=== PATIENT | male | born 1945 | race African-American/Black ===

== ENCOUNTER 2017-04-14 05:57 | Observation (INO) ==
[2017-04-14] MEDS ORDERED: methylPREDNISolone SOD SUC 125 MG/2 ML VIAL IV STA (06:32)
[2017-04-14] MEDS ORDERED: diphenhydrAMINE 50 MG/1 ML VIAL IV STA (06:32)
[2017-04-14] MEDS ORDERED: ALBUTEROL/IPRATROPIUM 3 ML NEB RESP TX STA (06:32)
[2017-04-14 06:45] LABS: Basophils % 0.2 % (0.0-0.8); Eosinophils # 0.2 10*3/uL (0.0-0.87); Hematocrit 42.7 VOL% (42.0-52.0); Immature Granulocytes % 2.3 %; Immature Granulocytes Absolute 0.35 #; Lymphocytes # 3.8 10*3/uL (1.4-4.0); Lymphocytes % 25.5 % (21.2-54.2); Mean Corpuscular HGB Conc 32.8 GM/DL (32-36); Mean Corpuscular Hemoglobin 29 PG (27-34); Mean Platelet Volume 9.6 FL (9.6-12.0); Monocytes # 0.9 10*3/uL (0.11-0.8); Monocytes % 5.7 % (1.7-12.7); Neutrophils # 9.8 10*3/uL (1.4-7.4); Neutrophils % 65.3 % (38.7-73.9); Platelet Count 292 T/CUMM (130-400); Red Cell Distribution Width 15.4 % (9.3-17.3)
[2017-04-14] MEDS ORDERED: diphenhydrAMINE 50 MG/1 ML VIAL ONE (06:47)
[2017-04-14] MEDS ORDERED: methylPREDNISolone SOD SUC 125 MG/2 ML VIAL ONE (06:47)
--- NOTE | 2017-04-14 07:10 | EKG Report ---
Stationary ECG Study [facility] ER Test Date: 04/14/2017 7:08:12 AM Pat Name: ANITA GRAY Department: Room: Gender: M Procurement Buyer: : 1945 Requested by: Amilcar Burgos Order Number: [id number] Reading MD: TERRY BARBOSA Intervals [place] Rate: 64 P: 29 IA: 155 QRS: 142 QRSD: 92 T: -18 QT: 416 QTc: 426 Interpretive Statements SINUS RHYTHM INDETERMINATE AXIS PATTERN CONSISTENT WITH PULMONARY DISEASE POSSIBLE INFERIOR MYOCARDIAL INFARCTION, OF INDETERMINATE AGE Electronically Signed On 04-14-17 07:17:06 CDT by TERRY BARBOSA [email or web address]
--- NOTE | 2017-04-14 07:11 | XRay Report ---
Portable chest. Indication: Shortness of breath. Comparison: April 13, 2017. The heart is normal in size. There is uncoiling of the thoracic aorta. Better breath with taken. Previously seen small left apical pneumothorax no longer visible. There is however significant worsening in the subcutaneous emphysema, which is now bilateral, and extending into the neck. There is improved aeration of the lung bases, particularly the right lung base. Persistent pleural and parenchymal abnormality on the left, with infiltrates also seen in the right lung. Impression: 1. Interval significant increase in subcutaneous emphysema, now bilateral. 2. The previously described 7 mm pneumothorax at the left apex is not visible. 3. Diffuse infiltrates are present with pleural thickening on the left. There is improved aeration compared to the previous study. PROCEDURE INTERPRETED AT [facility] Final Report Signed by: Dr. Cathy Howard
--- NOTE | 2017-04-14 07:12 | XRay Report ---
History: Swelling back of throat. Neck tenderness Date: 04/14/2017 Study: Soft tissue neck 2 views Comparison exam: Chest x-ray 04/13/2017 There is increasing soft tissue emphysema of the supraclavicular and cervical soft tissues compared to the chest x-ray from the previous day. This includes soft tissue emphysema in the prevertebral soft tissues. The upper airway is patent. There is no abnormal edema of the epiglottis. No definite radiopaque foreign body is seen. There is moderate anterior spondylosis and mild degenerative disc narrowing at C5-C6 and C6-C7. Impression: Increased soft tissue emphysema of the supraclavicular and cervical soft tissues bilaterally compared to the chest x-ray from the previous day PROCEDURE INTERPRETED AT [facility]PARTMENT OF RADIOLOG[facility] Final Report Signed by: Dr. Violet Hope
--- NOTE | 2017-04-14 07:53 | Emergency Department Note ---
Ephraim Ponce Manpreet, am scribing for, and in the presence of, Amilcar Perkins MD 06:38. Maddie Ponce Phillip K, MD, personally performed the services described in this documentation, ascribed by Mehdi Ye in my presence, and it is both accurate and complete 753 . Arrival - Arrival Chief Complaint: Non-Specific Stated Complaint: swelling ED Nursing Triage Note: Pt to triage with c/o swelling in his face and throat. Pt states he feels like a "lump" in his throat. Pt states he was d/c yesterday for here after having "lung " surgery done by . Pt sats's was 86% but came up to 94% after 2L oxygen. Mode of Arrival: Wheelchair Limitations: No Limitations Source: Patient - History of Present Illness HPI Narrative: Pt is a 76 y/o male, with PMHx of COPD, who presents to the ED with CC of swelling to his face and throat. Pt feels like he has a "lump" in his throat. Pt felt his throat swollen after eating a meal yesterday. Pt also c/o a productive cough with a white phlegm. Pt's lung collapsed 12 days ago and had a chest tube placed. The tube was in the pt for 10 days. Pt denies any pain to his throat. Pt had his lungs inflated by Dr. Trotter yesterday. No other pains/ complaints reported to the ED. Onset (ago): hour(s) Consistency: constant Severity: moderate Severity scale (1-10): 3 Allergies/Adverse Reactions: Allergies Allergy/AdvReac Type Severity Reaction Status Date / Time No Known Allergies Allergy Unverified 04/14/17 06:13 Home Medications: Home Medications Medication Instructions Recorded Confirmed Type No Known Home Medications [No 04/04/17 04/04/17 History Known Home Medications] Review of System - Review of System 12 point system: reviewed and no additional remarkable complaints except as stated - Review of System Constitutional: Absent: chills, diaphoresis, fever Head/Ears/Nose/Throat: Present: other (Swelling to face and throat). Absent: epistaxis Respiratory: Present: respiratory distress, wheezing. Absent: cough Cardiovascular: Absent: chest pain Gastrointestinal: Absent: abdominal pain, nausea, vomiting Musculoskeletal: Absent: arm pain, back pain Neurological: Absent: headache, weakness, numbness, paresthesias Medical,Surgical,& Family Hx - Medical History Cardio: No history of: Hypertension Neurology: No history of: Seizures Endocrine: No history of: Diabetes Mellitus (IDDM), Diabetes Mellitus (NIDDM) Respiratory: History of: COPD - Surgical History Orthopedic Surgeries: Surgical HX of;: Orthopedic Surgery (left hip surgery) - Family History Family History: Reports;: Family Cancer (Mother), Family Stroke (Father) - Social History Smoking Status: Current every day smoker Frequency of Alcohol Use: None Type of Drug Use: None Exam Vital Signs: Vital Signs Temperature 98.6 F 04/14/17 06:43 Pulse Rate 63 04/14/17 07:13 Respiratory Rate 21 04/14/17 07:13 Blood Pressure 163/95 04/14/17 07:13 O2 Sat by Pulse Oximetry 100 04/14/17 07:13 - General General appearance: alert, in no apparent distress - Head Head exam: Present: atraumatic, normocephalic, normal inspection - Eye Eye exam: Present: normal appearance, PERRL, EOMI - ENT ENT exam: Present: normal oropharynx, mucous membranes moist, TM's normal bilaterally, other (Swelling of back of throat, no redness or puss) - Neck Neck exam: Present: normal inspection, full ROM, trachea midline. Absent: thyromegaly - Chest Chest inspection: Present: normal inspection, symmetric chest wall rise. Absent : tenderness - Respiratory Respiratory exam: Present: wheezes (Expiratory wheezes). Absent: normal lung sounds bilaterally, accessory muscle use, rales, respiratory distress, rhonchi - Cardiovascular Cardiovascular exam: Present: regular rate, normal rhythm, normal heart sounds. Absent: murmur, rubs, gallop - Abdominal Exam Abdominal exam: Present: soft, normal bowel sounds. Absent: distention, tenderness, guarding, rebound, rigidity - Extremities Exam Extremities exam: Present: normal inspection, full ROM. Absent: tenderness - Back Exam Back exam: Present: normal inspection, full ROM. Absent: tenderness - Neurological Exam Neurological exam: Present: alert, oriented X3, CN II-XII intact, reflexes normal - Psychiatric Psychiatric exam: Present: normal affect, normal mood - Skin Skin exam: Present: warm, dry, intact, normal color. Absent: pallor Course - Reevaluation(s) Reevaluation #1: Patient discussed with the hospitalist. Results - Labs CBC & BMP: 04/14/17 06:22 Lab Results: I have reviewed the patients labs Labs: Laboratory Tests 04/14/17 06:22 WBC 15.0 H D RBC 4.80 Hgb 14.0 Hct 42.7 MCV 89.0 MCH 29 MCHC 32.8 RDW 15.4 Plt Count 292 MPV 9.6 Neut % (Auto) 65.3 Lymph % (Auto) 25.5 [place] % (Auto) 5.7 Eos % (Auto) 1.0 Baso % (Auto) 0.2 Neut # (Auto) 9.8 H Lymph # (Auto) 3.8 [place] # (Auto) 0.9 H Eos # (Auto) 0.2 Baso # (Auto) 0.0 Immature Gran % 2.3 Nucleated RBC % 0.0 Immature Gran # 0.35 Nucleated RBCs # 0.00 Immature Plt Fraction 0.0 - EKG EKG results: interpreted by ERMD, sinus rhythm (Old inferior, nonspecific ST-T changes.) - Diagnostic Findings Procedure: Chest x-ray: report reviewed by me ("1. Interval significant increase in subcutaneous emphysema, now bilateral. 2. The previously described 7 mm pneumothorax at the left apex is not visible. 3. Diffuse infiltrates are present with pleural thickening on the left. There is improved aeration compared to the previous study."), X-ray: report reviewed by me ("Soft tisue neck X-ray: Increased soft tissue emphysema of the supraclavicular and cervical soft tissue bilaterally compared to the chest x-ray from the previous day.") Disposition Clinical Impression: Neck swelling, Subcutaneous emphysema, Pulmonary fibrosis Case discussed with: patient Disposition: Still a Patient Condition: Guarded Additional Instructions: Admit to the hospitalist.
--- NOTE | 2017-04-14 08:57 | Hospitalist History & Physical ---
<Patricia Kruse - Last Filed: 04/14/17 08:51> Assessment and Plan - Time spent with patient Time spent with patient: Greater than 30 minutes (1) Leukocytosis Status: Acute Assessment and plan: 71-year-old -[place] male with history of tobacco abuse and interstitial lung disease who was discharged yesterday after VATS procedure and chest tube removal. Patient is returned today and readmitted with bilateral increasing subcutaneous emphysema of the chest and neck. Patient does have some minimal shortness of breath. He will be admitted under observation overnight and watched for any respiratory failure or pneumothorax. Will consult Dr. Trotter for evaluation since he did perform the VATS procedure on . Dr. Young has seen and examined patient and further recommendations to follow. Current Visit: Yes (2) Neck swelling Status: Acute Current Visit: Yes (3) Subcutaneous emphysema Status: Acute Current Visit: Yes (4) Tobacco abuse Status: Acute Current Visit: No (5) Chronic lung disease Status: Chronic Current Visit: No (6) Hypertension Status: Chronic Current Visit: No Qualifiers: Hypertension type: essential hypertension Qualified Code(s): I10 - Essential (primary) hypertension History of Present Illness Chief complaint: Neck swelling History of present illness: Mr. Cortés is a 71 year old -[place] male with history of chronic interstitial lung disease and tobacco dependency presenting to the ED with neck and chest swelling and shortness of breath. Patient was admitted by the hospitalist service on 04/04/2017 with chest pain and shortness of breath. He was found to have a spontaneous pneumothorax and chest tube was placed. Dr. Young and Dr. Trotter both followed the patient during his hospital stay. His pneumothorax did not resolve so he was taken to the operating room on [address] Trotter where he did a left VATS exploration with lysis of adhesions, talc pleurodesis, and interstitial intercostal nerve blocks. Patient 's chest tubes were removed and he was discharged home without any difficulty yesterday. Patient states he was doing fine until he started having some neck swelling and chest swelling last night that worsened throughout the night. He states his throat hurts and he is having some shortness of breath. He is afebrile and his vital signs are stable. White count is elevated at 15 and it was normal on discharge yesterday. His chest x-ray shows significant increase in subcutaneous emphysema bilaterally with no pneumothorax. There is also diffuse infiltrates present with pleural thickening on the left. X-ray of the neck showing soft tissue emphysema of the supraclavicular and cervical soft tissues bilaterally. Upon exam patient has minimal conversational dyspnea but he is oxygenating well on room air. He does have subcutaneous air bilaterally that is visible and palpable on his chest wall. The left is greater than the right. He had copious amounts of serosanguineous drainage on his dressings that I did change in the ER with placement of occlusive dressing. Patient denies headache, blurry vision, dysphagia, chest pain, abdominal pain, constipation or diarrhea, or lower extremity edema. After discussion with Dr. Perkins the ED physician and Dr. Young the admitting hospitalist, it was agreed patient would be admitted for further evaluation and treatment. Home Medications Medication Instructions Recorded Confirmed Type No Known Home Medications [No 04/04/17 04/04/17 History Known Home Medications] Allergies Allergy/AdvReac Type Severity Reaction Status Date / Time No Known Allergies Allergy Unverified 04/14/17 06:13 Medical,Surgical,& Family Hx - Medical History Cardio: No history of: Hypertension Neurology: No history of: Seizures Endocrine: No history of: Diabetes Mellitus (IDDM), Diabetes Mellitus (NIDDM) Respiratory: History of: COPD - Surgical History Orthopedic Surgeries: Surgical HX of;: Orthopedic Surgery (left hip surgery) Additional Surgical History: VATS on 04/09/2017 - Family History Family History: Reports;: Family Cancer (Mother), Family Stroke (Father) - Social History Smoking Status: Current every day smoker Frequency of Alcohol Use: None Type of Drug Use: None Marital Status: Lives With:: Spouse Functional capacity: independent ambulation Review of systems: A complete 10 system review of systems was obtained and pertinent positives and negatives per HPI Exam - Constitutional Vitals: Period Temp Pulse Resp BP Sys/Kumar Pulse Ox Last 24 Hr 98.6 F-98.6 F 63-74 18-21 149-163/94-99 90-100 Exam: Constitutional System: No distress. No tremulousness. Head: Normocephalic, atraumatic. Ears, Nose and Throat System: No evidence of Otitis or Mastoiditis. No epistaxis or discharge, Eyes System: Pupils equal, round, and reactive. Extraocular muscles intact. Neck: Supple, without adenopathy, No jugular venous distention. No thyromegaly, neck mass, or prior surgery apparent. He does have some minimal subcu air bilaterally Respiratory System: Chest Rales to auscultation. Cardiovascular System: Heart with regular rate and rhythm. No murmur. GI System: Abdomen soft, nontender. Normo active bowel sounds present. Musculoskeletal System: limbs with no pedal edema. Full distal pulses. Neurological System: No discernable sensory deficit. No aphasia Psychiatric System: Conversation is rational Results - Labs CBC & BMP: 04/14/17 06:22 Lab Results: I have reviewed the past 24 hour labs - EKG EKG results: sinus rhythm - Diagnostic Findings Procedure: Chest x-ray: report reviewed by me (Interval significant increase in subcu emphysema bilaterally, no pneumothorax, diffuse infiltrates with pleural thickening on the left.), X-ray: report reviewed by me (Increased soft tissue emphysema of the supraclavicular and cervical soft tissues bilaterally.) <Brennan Young - Last Filed: 04/14/17 10:46> Assessment and Plan (1) Subcutaneous emphysema Status: Acute Assessment and plan: Impression: 1. Subcutaneous emphysema, almost certainly related to recent surgical procedure 2. Pulmonary fibrosis Plan: The patient will be readmitted to the hospital. CV surgery has been consulted for evaluation and input. I am seeing this patient in colllaboration with the advanced instructional manager. I performed the essential elements of the history and examination, and agree with the evaluation as entered, except as noted above. Current Visit: Yes Qualifiers: Encounter type: initial encounter Qualified Code(s): T79.7XXA - Traumatic subcutaneous emphysema, initial encounter History of Present Illness History of present illness: Mr. Cortés is a 71 year old male History is as described above. The patient had his chest tube removed yesterday. He did not have any evidence of air leak or recurrent pneumothorax, and was discharged home. He says that he noted some swelling in his chest later in the day as well as some dyspnea. He came back to the emergency room. He was noted to have subcutaneous emphysema in the chest extending up into the neck. Oxygenation was adequate. He also had quite a bit of serosanguineous drainage on the dressing. CV surgery has been consulted, and will see the patient along with us. Exam - Constitutional Vitals: Period Temp Pulse Resp BP Sys/Kumar Pulse Ox Last 24 Hr 98.6 F-98.6 F 62-74 18-22 148-163/94-99 90-100 Exam: Examination is as described above. He has palpable subcutaneous air. Mild rales are present in all lung mcdonough, which is his baseline examination due to his underlying pulmonary fibrosis. Results - Labs CBC & BMP: 04/14/17 06:22 04/14/17 06:22
[2017-04-14 09:00] LABS: Calcium 8.6 MG/DL (8.5-10.1); Osmolality,Calculated 284.1 MOS/KG (273-304); Potassium 4.2 MMOL/L (3.5-5.1)
[2017-04-14] MEDS ORDERED: DOCUSATE SODIUM 100 MG CAPSULE PO PRN (09:18)
[2017-04-14] MEDS ORDERED: guaiFENesin/DM ER 600-30 MG TABLET PO PRN (09:18)
[2017-04-14] MEDS ORDERED: NICOTINE 21 MG/24 HR PATCH TRANSDERM PRN (09:18)
[2017-04-14] MEDS ORDERED: MORPHINE 2 MG/1 ML SYRINGE IV PRN (09:18)
[2017-04-14] MEDS ORDERED: ACETAMINOPHEN 325 MG TABLET PO PRN (09:18)
[2017-04-14] MEDS ORDERED: diphenhydrAMINE CAP 25 MG CAPSULE PO PRN (09:18)
[2017-04-14] MEDS ORDERED: ONDANSETRON 4 MG/2 ML VIAL IV PRN (09:18)
[2017-04-14] MEDS ORDERED: SODIUM CHLORIDE 0.9% 1,000 ML IV SCH (09:30)
[2017-04-14] MEDS: ENOXAPARIN 40 MG/0.4 ML SYRINGE SUBCUT SCH (10:52)
[2017-04-14] MEDS: PANTOPRAZOLE 40 MG TABLET PO SCH (10:52)
--- NOTE | 2017-04-14 11:47 | Cardiothoracic Consult ---
Assessment and Plan - Time spent with patient Time spent with patient: Greater than 30 minutes (1) Subcutaneous emphysema Status: Acute Assessment and plan: 71-year-old male with subcutaneous emphysema, however no pneumothorax, the patient has a nonhealing wound on his left side of the chest that was a place of the initial chest tube that was placed by the ER team. This wound appears to be communicating with the pleural cavity. I recommend consulting wound care to place wound VAC sponge in this wound with suction to -25 mmHg. This will resolve the subcutaneous emphysema as well as will keep the wound clean and healing faster. Current Visit: Yes History of Present Illness - Data of Consult Patient: known to practice within the last 3 years Consult date: 04/14/17 - Consult Narrative Reason for consult: Subcutaneous emphysema History of present illness: Mr. Cortés is a 71 year old male who is status post VATS talc pleurodesis for persistent pneumothorax which at the time developed into tension pneumothorax. The patient did well. I removed his chest tube recently. The patient was discharged yesterday by the primary service. He comes back today with subcutaneous emphysema. He has no other symptoms. He is hemodynamically stable. There does not have pneumothorax. CC: Brennan Young MD - Home Medications and Allergies Home Medications: Home Medications Medication Instructions Recorded Confirmed Type No Known Home Medications [No 04/04/17 04/04/17 History Known Home Medications] Allergies/Adverse Reactions: Allergies Allergy/AdvReac Type Severity Reaction Status Date / Time No Known Allergies Allergy Unverified 04/14/17 06:13 12 point system: reviewed and no additional remarkable complaints except as stated (HPI) Medical,Surgical,& Family Hx - Medical History Cardio: No history of: Hypertension Neurology: No history of: Seizures Endocrine: No history of: Diabetes Mellitus (IDDM), Diabetes Mellitus (NIDDM) Respiratory: History of: COPD Comment Only: Respiratory Problems (pneumothorax) - Surgical History Orthopedic Surgeries: Surgical HX of;: Orthopedic Surgery (left hip surgery) - Family History Family History: Reports;: Family Cancer (Mother), Family Stroke (Father) - Social History Smoking Status: Current every day smoker Frequency of Alcohol Use: None Type of Drug Use: None Physical Examination Vital Signs Temp Pulse Resp BP Pulse Ox 98.6 F 74 18 154/94 93 L 04/14/17 06:06 04/14/17 06:06 04/14/17 06:06 04/14/17 06:06 04/14/17 06:06 General: Present: Other (To obtain his emphysema) HEENT: Present: Other (Subcutaneous emphysema) Neck: Present: Other (Subcutaneous emphysema) Cardiac: Present: Reg Rate and Rhythm Lungs: Present: Normal Exam Neuro: Present: Cranial Nerve 2-12 Intact Abdomen: Present: Soft, Active Bowel Sounds Result/EKG - Labs CBC & BMP: 04/14/17 06:22 04/14/17 06:22 Labs: Laboratory Results - last 24 hr 04/14/17 04/14/17 06:22 06:22 WBC 15.0 H D RBC 4.80 Hgb 14.0 Hct 42.7 MCV 89.0 MCH 29 MCHC 32.8 RDW 15.4 Plt Count 292 MPV 9.6 Neut % (Auto) 65.3 Lymph % (Auto) 25.5 [place] % (Auto) 5.7 Eos % (Auto) 1.0 Baso % (Auto) 0.2 Neut # (Auto) 9.8 H Lymph # (Auto) 3.8 [place] # (Auto) 0.9 H Eos # (Auto) 0.2 Baso # (Auto) 0.0 Immature Gran % 2.3 Nucleated RBC % 0.0 Immature Gran # 0.35 Nucleated RBCs # 0.00 Immature Plt Fraction 0.0 Sodium 142 Potassium 4.2 Chloride 105 Carbon Dioxide 31 Anion Gap 10.2 BUN 22 H Creatinine 0.80 GFR Calculation 126 BUN/Creatinine Ratio 27.00 H Glucose 83 Calculated Osmolality 284.1 Calcium 8.6
--- NOTE | 2017-04-14 15:14 | Discharge Summary ---
Hospital Course - Hospital Course Hospital Course: 71-year-old -[place]ym[place] male with history of tobacco abuse and interstitial lung disease. Readmitted by hospital medicine with bilateral increasing subcutaneous emphysema of the chest and the neck without pneumothorax. Patient had been discharged 1 day prior status post VATS procedure and chest tube removal by Dr. Trotter. Dr. Trotter was consulted and he found a nonhealing wound on the left side of the chest that was from the initial chest tube placement. Wound VAC was placed in good seal was obtained. Home VAC has been ordered and approved and once delivered this afternoon patient will be discharged home with home wound VAC. Patient will have home health change the VAC on Mondays and . Will make an appointment with first available physician in the wound healing center for follow-up. Complete discharge instructions were given. Care coordination, chart review, and completed discharge paperwork took approximately 32 minutes. - Time spent with patient Time with patient DS: Greater than 30 minutes Diagnosis - Discharge Diagnosis (1) Leukocytosis Status: Resolved (2) Neck swelling Status: Resolved (3) Subcutaneous emphysema Status: Resolved (4) Tobacco abuse Status: Chronic (5) Chronic lung disease Status: Chronic (6) Hypertension Status: Chronic Specialty Discharge - Follow Up or Referrals Follow up with: Myron Trotter [Physician] - (follow up with Dr Trotter in 3 weeks on May 03, 2017 @ 09:00 ) Discharge Plan - Discharge Data Disposition: Home Health Service Condition at Discharge: Stable Discharge Diet: advance to your usual diet Activity: resume usual activities as tolerated Hygiene: keep area(s) dry Driving: no restrictions Contact your physician if you experience:: fever over 101, Shortness of breath, pain uncontrolled by pain medications Wound / Dressing Care Instructions: Wound VAC to left chest wound using black foam at 75/h. When removed clean wound with mild soap and water pat dry. Change wound VAC on Mondays and . - Discharge Medications No Action No Known Home Medications [No Known Home Medications] - Follow Up or Referral Follow Up: Myron Trotter [Physician] - (follow up with Dr Trotter in 3 weeks on May 03, 2017 @ 09:00 ) wound, center [Other] (first available physician) - Forms/Instructions Exam - Constitutional Vitals: Period Temp Pulse Resp BP Sys/Kumar Pulse Ox Last 24 Hr 98.5 F-98.7 F 62-74 - 142-165/90-104 90-100 Exam: 71-year-old -[place] male, no acute distress, alert and oriented Chest with rails, subcutaneous emphysema has decreased in the chest and neck, wound VAC intact CV regular rate and rhythm Abdomen soft and nontender Extremities no edema Discharge Results Procedures and tests throughout hospitalization: Pending Orders 04/14/17 10:00 MRSA Surveillence, Inf Control Routine 04/15/17 04:00 XR chest 2V IN AM Comp Blood Count Auto Diff IN AM Labs on day of discharge: Labs from last 24 hours 04/14/17 04/14/17 06:22 06:22 WBC 15.0 H D RBC 4.80 Hgb 14.0 Hct 42.7 MCV 89.0 MCH 29 MCHC 32.8 RDW 15.4 Plt Count 292 MPV 9.6 Neut % (Auto) 65.3 Lymph % (Auto) 25.5 [place] % (Auto) 5.7 Eos % (Auto) 1.0 Baso % (Auto) 0.2 Neut # (Auto) 9.8 H Lymph # (Auto) 3.8 [place] # (Auto) 0.9 H Eos # (Auto) 0.2 Baso # (Auto) 0.0 Immature Gran % 2.3 Nucleated RBC % 0.0 Immature Gran # 0.35 Nucleated RBCs # 0.00 Immature Plt Fraction 0.0 Sodium 142 Potassium 4.2 Chloride 105 Carbon Dioxide 31 Anion Gap 10.2 BUN 22 H Creatinine 0.80 GFR Calculation 126 BUN/Creatinine Ratio 27.00 H Glucose 83 Calculated Osmolality 284.1 Calcium 8.6 DS: Provider Date of admission: 04/14/17 09:18 Primary care physician: . No PCP Attending physician on admission: Brennan Young MD Consults: 04/14/17 09:18 Consult to Physician [CONS] Routine Comment: pt of yours. subq air Consulting Provider: Myron Trotter When should Consulting Provider be notified: Now Person Notified: vandana Date Notified: 04/14/17 Time Notified: 09:46 Consult Notification Comment: notified of consult 04/14/17 10:18 Consult to Pastoral Services [CONS] Routine Comment: Pastoral Screen: Request Insurance Sales Assistant Visit Pastoral Screen Source of Request: Patient 04/14/17 11:42 Consult to Wound Care - [place] [CONS] Routine Reason for Wound Care: Wound Care Management Consult Comment: place wound vac to left upper chest, 75 mmHg continuous 04/14/17 11:52 Consult to Case Mgmt/Social Srvs [CONS] Routine Reason for Case Mgmt/Social Srvs: Equipment Consult Comment: needs wound vac for home, no known insurance 04/14/17 13:35 Consult to Case Mgmt/Social Srvs [CONS] Routine Reason for Case Mgmt/Social Srvs: Home Health Consult Comment: To manage pts Wound Vac Discharging clinician: KAL Johnson Expected date of discharge: 04/14/17
--- NOTE | 2017-04-14 15:32 | General Surgery Consult Note ---
Assessment and Plan - Time spent with patient Time spent with patient: Less than 30 minutes History of Present Illness Chief complaint: Subcutaneous air with wound VAC History of present illness: Mr. Cortés is a 71 year old male -[place] male who had undergone a CABG went home after chest tubes were pulled. Came back today with some shortness of breath and subcu air in his chest wall area. He is stable showed no evidence of a pneumothorax but they elected to go ahead and put a wound VAC over the chest tube sites in order to reduce his subcu air. He does not have a lot of subcu air at this time he is not short of breath and certainly his previous x-rays showed no pneumothorax. They were planning on letting him go home with a home VAC and follow him up in the office which we are happy to do to see how he basically basically progresses. I have a little bit of concern about going home this late in the evening with the wound VAC after coming in with this problem. Generally I would feel better if he stayed overnight and if he was stable in the morning I think it be reasonable to let him go the end. Will inform his physicians about this and let this be up to them as what they decide. Home Medications Medication Instructions Recorded Confirmed Type No Known Home Medications [No 04/04/17 04/14/17 History Known Home Medications] Allergies Allergy/AdvReac Type Severity Reaction Status Date / Time No Known Allergies Allergy Unverified 04/14/17 06:13 Medical,Surgical,& Family Hx - Medical History Cardio: No history of: Hypertension Neurology: No history of: Seizures Endocrine: No history of: Diabetes Mellitus (IDDM), Diabetes Mellitus (NIDDM) Respiratory: History of: COPD Comment Only: Respiratory Problems (pneumothorax) - Surgical History Orthopedic Surgeries: Surgical HX of;: Orthopedic Surgery (left hip surgery) - Family History Family History: Reports;: Family Cancer (Mother), Family Stroke (Father) - Social History Smoking Status: Current every day smoker Frequency of Alcohol Use: None Type of Drug Use: None 12 point system: reviewed and no additional remarkable complaints except as stated Exam - Constitutional Vitals: Period Temp Pulse Resp BP Sys/Kumar Pulse Ox Last 24 Hr 98.5 F-98.7 F 62-74 17-22 142-165/90-104 90-100 General appearance: mild distress, other (Skin subcutaneous emphysema) - Head Head exam: Present: normal inspection - ENT ENT exam: Present: normal exam - Neck Neck exam: Present: normal inspection - Respiratory Respiratory exam: Present: clear to auscultation bilaterally - Cardiovascular Cardiovascular exam: Present: RRR - GI/Abdominal GI/Abdominal exam: Present: normal bowel sounds, soft - Extremities Exam Extremities exam: Present: normal inspection - Neurological Exam Neurological exam: Present: alert, oriented X3, CN II-XII intact - Skin Skin exam: Present: normal color, warm, dry Results - Labs CBC & BMP: 04/14/17 06:22 04/14/17 06:22 Lab Results: I have reviewed the past 24 hour labs - Diagnostic Findings Procedure: Chest x-ray: report reviewed by me (Subcu air without pneumo thorax) Specialty Discharge - Follow Up or Referrals Follow up with: wound, center [Other] (first available physician) Myron Trotter [Physician] - (follow up with Dr Trotter in 3 weeks on May 03, 2017 @ 09:00 )
--- NOTE | 2017-04-14 15:57 | General Surgery Consult Note ---
History of Present Illness History of present illness: Mr. Cortés is a 71 year old male Home Medications Medication Instructions Recorded Confirmed Type No Known Home Medications [No 04/04/17 04/14/17 History Known Home Medications] Allergies Allergy/AdvReac Type Severity Reaction Status Date / Time No Known Allergies Allergy Unverified 04/14/17 06:13 Medical,Surgical,& Family Hx - Medical History Cardio: No history of: Hypertension Neurology: No history of: Seizures Endocrine: No history of: Diabetes Mellitus (IDDM), Diabetes Mellitus (NIDDM) Respiratory: History of: COPD Comment Only: Respiratory Problems (pneumothorax) - Surgical History Orthopedic Surgeries: Surgical HX of;: Orthopedic Surgery (left hip surgery) - Family History Family History: Reports;: Family Cancer (Mother), Family Stroke (Father) - Social History Smoking Status: Current every day smoker Frequency of Alcohol Use: None Type of Drug Use: None Exam - Constitutional Vitals: Period Temp Pulse Resp BP Sys/Kumar Pulse Ox Last 24 Hr 98.5 F-98.7 F 62-74 - 142-165/90-104 90-100 Results - Labs CBC & BMP: 04/14/17 06:22 04/14/17 06:22 Specialty Discharge - Follow Up or Referrals Follow up with: wound, center [Other] (first available physician) Myron Trotter [Physician] - (follow up with Dr Trotter in 3 weeks on May 03, 2017 @ 09:00 )
[2017-04-15 06:06] LABS: Basophils % 0.1 % (0.0-0.8); Eosinophils # 0.5 10*3/uL (0.0-0.87); Eosinophils % 3.5 % (0.00-10.9); Hematocrit 41.3 VOL% (42.0-52.0); Hemoglobin 13.2 GM/DL (14.0-18.0); Immature Granulocytes % 2.3 %; Immature Granulocytes Absolute 0.34 #; Lymphocytes # 3.6 10*3/uL (1.4-4.0); Lymphocytes % 23.8 % (21.2-54.2); Mean Corpuscular Hemoglobin 29 PG (27-34); Mean Corpuscular Volume 89.6 FL (87-102); Mean Platelet Volume 9.9 FL (9.6-12.0); Monocytes # 1.1 10*3/uL (0.11-0.8); Monocytes % 7.2 % (1.7-12.7); NRBC # 0.02 10*3/uL; Neutrophils # 9.4 10*3/uL (1.4-7.4); Neutrophils % 63.1 % (38.7-73.9); Platelet Count 263 T/CUMM (130-400); Red Blood Count 4.61 MC/CUMM (3.8-5.5); Red Cell Distribution Width 15.5 % (9.3-17.3); White Blood Count 14.9 T/CUMM (4-12)
[2017-04-15] MEDS: PANTOPRAZOLE 40 MG TABLET PO SCH (08:48)
--- NOTE | 2017-04-15 09:29 | General Surgery Progress Note ---
Assessment and Plan - Time spent with patient Time spent with patient: Less than 30 minutes (1) Subcutaneous emphysema after procedure Status: Acute Assessment and plan: 04/15/2017 0930 hrs. Patient is doing well sitting up complaining no shortness of breath or discomfort. Cannot really appreciate crepitance but it is a little soft in the left chest wall area. Wound VAC appears to be working with no alarms at this time. Chest x-ray looks stable at this point no final report that I see. At this point I feel little better about him going home since we have had a little time to be sure nothing was changing. We will plan to follow him up in the office on Wednesday to look at his wound VAC. Current Visit: Yes Subjective Patient reports: Present: no new complaints, afebrile, other (No shortness of breath no discomfort) Exam - Constitutional Vitals: Period Temp Pulse Resp BP Sys/Kumar Pulse Ox Last 24 Hr 97.9 F-99.0 F 62-120 17-28 133-165/70-104 92-100 General appearance: no acute distress - Head Head exam: Present: normal inspection - ENT ENT exam: Present: normal exam - Neck Neck exam: Present: normal inspection - Respiratory Respiratory exam: Present: rales - Cardiovascular Cardiovascular exam: Present: RRR - GI/Abdominal GI/Abdominal exam: Present: normal bowel sounds, soft - Extremities Exam Extremities exam: Present: normal inspection - Neurological Exam Neurological exam: Present: alert, oriented X3, CN II-XII intact - Skin Skin exam: Present: normal color, warm, dry Results - Labs CBC & BMP: 04/15/17 05:30 04/14/17 06:22 Lab Results: I have reviewed the past 24 hour labs Specialty Discharge - Follow Up or Referrals Follow up with: wound, center [Other] (first available physician) Myron Trotter [Physician] - 05/03/17 9:00 am (follow up with Dr Trotter in 3 weeks on May 03, 2017 @ 09:00 ) Selvin Manley MD [Physician] - 05/20/17 9:30 am (follow up with Dr Manley Wednesday04/19/17 @ 09:30 bring insurance card, identification, and home medications )
[2017-04-15] MEDS: ENOXAPARIN 40 MG/0.4 ML SYRINGE SUBCUT SCH (10:30)
--- NOTE | 2017-04-15 11:30 | XRay Report ---
Exam: XR chest 2V Indication: Extensive chest wall emphysema Comparison study: Prior chest radiograph 04/14/2017 and 04/12/2017 Findings: Previous left-sided chest tube is been removed. Extensive bilateral chest wall emphysematous changes are noted, which appears the anatomy. Slight lucency within the left lung apex is noted and a moderate sized pneumothorax is not excluded. Evaluation for pulmonary infiltrates is severely limited. Fibrotic changes, interstitial prominence and atelectasis within the lung bases is suspected and similar prior. Cardiac silhouette and mediastinal contours appear similar prior. Osseous structures are stable. Impression: Extensive chest wall edematous changes which appears anatomy. A pneumothorax within the left apex is suspected but not clearly identified radiographically. If there is clinical concern for recurrent pneumothorax following chest tube placement, consider CT imaging of the chest without contrast. Critical findings discussed with hospitalist Dr. Young at the workstation at approximately 11:25 AM on the day of the examination PROCEDURE INTERPRETED AT [facility] DEPARTMENT OF RADIOLOGY Final Report Signed by: Quincy Bishop
--- NOTE | 2017-04-15 13:03 | CT Report ---
History is follow-up pneumothorax and soft tissue emphysema Up to 1 cm mediastinal nodes grossly unchanged. There is mediastinal air present more pronounced than on the prior study. Heart is enlarged There is now a small, 1 x 4 cm mildly loculated pleural fluid collection posteriorly left chest with some minimal hyperdensity at the periphery. Prior left chest tube has been removed. There is a small, 3 x 5 cm mildly loculated pneumothorax in the left lung apex. This is much smaller than pneumothorax seen on the prior study. There is elongated mildly increased pleural-based density in the lateral left lung base. There is a more focal elliptical mildly hyperdense 2.5 x 5 cm pleural-based or extrapleural density anteriorly in the left upper chest which was not present on the prior study possibly hematoma Extensive soft tissue gas throughout both sides of the chest and the visualized neck is present more pronounced than on the prior study Extensive cystic changes throughout both lung mcdonough again seen with diffuse chronic reticular pulmonary opacities also again seen. There is a small amount of the loculated pleural gas measuring 1 x 2 cm in the lateral left lung base. Several other small pockets of pleural gas in the anterior lateral left chest present more superiorly left renal cyst partially visualized. The contours of pancreatic tail similar on multiple prior studies Impression: 1. Small areas of mildly loculated left pneumothorax 2. Worsening of extensive subcutaneous air both sides of the chest and neck 3. Worsening pneumomediastinum 4. Worsening pleural or extrapleural opacities in the left chest possibly with more focal extrapleural hematoma in the anterior left upper chest 5. extensive chronic pulmonary findings again seen The CT exam was performed using one or more of the following dose reduction techniques: Automated exposure control, adjustment of the mA and/or kV according to patient size, or use of iterative reconstruction technique. PROCEDURE INTERPRETED AT [facility] DEPARTMENT OF RADIOLOGY Final Report Signed by: Dr. Tete Howard
--- NOTE | 2017-04-15 15:29 | Hospitalist Progress Note ---
Assessment and Plan (1) Subcutaneous emphysema Status: Resolved Assessment and plan: Impression: 1. Subcutaneous emphysema, almost certainly related to recent surgical procedure 2. Pulmonary fibrosis Plan: Continue wound VAC. Home oxygen. Optimize COPD medications. This note was completed using [employer] voice recognition software. There may be lockstitch cup setter errors as a result. Current Visit: Yes Qualifiers: Encounter type: initial encounter Qualified Code(s): T79.7XXA - Traumatic subcutaneous emphysema, initial encounter Hospitalist: Subjective Interval history: Follow-up subcutaneous emphysema with possible pneumothorax. I reviewed the chest x-ray with radiology, and they were concerned about residual pneumothorax. The patient therefore underwent chest CT. He was found to have pneumomediastinum and what appears to be some loculated areas of pneumothorax. He also has a significant amount of subcutaneous emphysema. CV surgery has also reviewed the CT, and has suggested that the patient can go home once we have managed his hypoxia. He will need to go home with oxygen. We will begin to arrange this. He already is under the care of a senior accounts payable specialist for his pulmonary fibrosis, and will make sure that his pulmonary medications are optimized at this time. Exam - Constitutional Vitals: Period Temp Pulse Resp BP Sys/Kumar Pulse Ox Last 24 Hr 97.9 F-99.0 F 66-120 18-28 133-149/70-94 92-99 Vital signs are noted above. Heart is regular with no murmur or gallop. Lungs show bilateral rales. Subcutaneous emphysema makes pulmonary auscultation difficult. He is awake and alert Results - Labs CBC & BMP: 04/15/17 05:30 04/14/17 06:22 Lab Results: I have reviewed the past 24 hour labs Specialty Discharge - Follow Up or Referrals Follow up with: wound, center [Other] (first available physician) Myron Trotter [Physician] - 05/03/17 9:00 am (follow up with Dr Trotter in 3 weeks on May 03, 2017 @ 09:00 ) Selvin Manley MD [Physician] - 05/20/17 9:30 am (follow up with Dr Manley Wednesday04/19/17 @ 09:30 bring insurance card, identification, and home medications )
[2017-04-15] MEDS: ACETAMINOPHEN 325 MG TABLET PO PRN (20:14)
[2017-04-16] MEDS: PANTOPRAZOLE 40 MG TABLET PO SCH (08:34)
[2017-04-16] MEDS: ENOXAPARIN 40 MG/0.4 ML SYRINGE SUBCUT SCH (09:42)
--- NOTE | 2017-04-16 10:21 | Discharge Summary ---
Hospital Course - Hospital Course Hospital Course: 71-year-old -[place]ian male with history of tobacco abuse and interstitial lung disease. Readmitted by hospital medicine with bilateral increasing subcutaneous emphysema of the chest and the neck without pneumothorax. Patient had been discharged 1 day prior status post VATS procedure and chest tube removal by Dr. Trotter. Dr. Trotter was consulted and he found a nonhealing wound on the left side of the chest that was from the initial chest tube placement. Wound VAC was placed in good seal was obtained. Home VAC has been ordered and approved and once delivered this afternoon patient will be discharged home with home wound VAC. Patient will have home health change the VAC on Mondays and . Will make an appointment with first available physician in the wound healing center for follow-up. Complete discharge instructions were given. Care coordination, chart review, and completed discharge paperwork took approximately 32 minutes. The patient stayed in the hospital a couple extra days for evaluation of a possible pneumothorax. There is no further surgical intervention required. Wound VAC was placed. He was hypoxic during hospitalization, so we ordered home oxygen. This took an extra day to make arrangements for he will go home with a wound VAC and home oxygen, and follow-up as described above in the wound clinic. This note was completed using [employer] voice recognition software. There may be mental hygiene consultant errors as a result. Diagnosis - Discharge Diagnosis (1) Subcutaneous emphysema Status: Resolved Specialty Discharge - Follow Up or Referrals Follow up with: francai germain [Other] (first available physician) Myron Trotter [Physician] - 05/03/17 9:00 am (follow up with Dr Trotter in 3 weeks on May 03, 2017 @ 09:00 ) Selvin Manley MD [Physician] - 05/20/17 9:30 am (follow up with Dr Manley Wednesday04/19/17 @ 09:30 bring insurance card, identification, and home medications ) Discharge Plan - Discharge Data Disposition: Home Health Service Condition at Discharge: Stable Discharge Diet: advance to your usual diet Activity: resume usual activities as tolerated Hygiene: no restrictions Weight Bearing at Discharge: full weight bearing (when Home O2 and portable tank delivered.) - Discharge Medications Continue No Known Home Medications [No Known Home Medications] - Follow Up or Referral Follow Up: francia germain [Other] (first available physician) Myron Trotter [Physician] - 05/03/17 9:00 am (follow up with Dr Trotter in 3 weeks on May 03, 2017 @ 09:00 ) Selvin Manley MD [Physician] - 05/20/17 9:30 am (follow up with Dr Manley Wednesday04/19/17 @ 09:30 bring insurance card, identification, and home medications ) - Forms/Instructions Exam - Constitutional Vitals: Period Temp Pulse Resp BP Sys/Kumar Pulse Ox Last 24 Hr 96.9 F-99.8 F 64-80 18-22 144-163/85-106 93-100 Vital signs are noted above. Heart is regular with extremely distant tones. He has rales all over the chest, and also quite a bit of crepitance from the subcutaneous air. He is awake and alert DS: Provider Date of admission: 04/14/17 09:18 Primary care physician: . No PCP Attending physician on admission: Brennan Young MD Consults: 04/14/17 09:18 Consult to Physician [CONS] Routine Comment: pt of yours. subq air Consulting Provider: Myron Trotter When should Consulting Provider be notified: Now Person Notified: vandana Date Notified: 04/14/17 Time Notified: 09:46 Consult Notification Comment: notified of consult 04/14/17 10:18 Consult to Pastoral Services [CONS] Routine Comment: Pastoral Screen: Request Loan Interviewer Mortgage Visit Pastoral Screen Source of Request: Patient 04/14/17 11:42 Consult to Wound Care [facility] [CONS] Routine Reason for Wound Care: Wound Care Management Consult Comment: place wound vac to left upper chest, 75 mmHg continuous 04/14/17 11:52 Consult to Case Mgmt/Social Srvs [CONS] Routine Reason for Case Mgmt/Social Srvs: Equipment Consult Comment: needs wound vac for home, no known insurance 04/14/17 13:35 Consult to Case Mgmt/Social Srvs [CONS] Routine Reason for Case Mgmt/Social Srvs: Home Health Consult Comment: To manage pts Wound Vac 04/14/17 15:13 Consult to Physician [CONS] Routine Comment: wound center Consulting Provider: Selvin Manley Person Notified: yeni green Date Notified: 04/14/17 Time Notified: 13:33 04/16/17 08:32 Consult to Case Mgmt/Social Srvs [CONS] Routine Reason for Case Mgmt/Social Srvs: Equipment Consult Comment: Set up w/Home O2 @ D/C f/low O2 Sats on RA Discharging clinician: Brennan Young MD Expected date of discharge: 04/16/17 (Once home O2 and portable tank delivered)
[2017-04-16 11:43] VITALS: BP 172/84
[2017-04-16] MEDS: ACETAMINOPHEN 325 MG TABLET PO PRN (12:08)
== END 2017-04-16 16:10 | disposition home health service (06) ==
LOC: N.ED 05:57 → N.EDINP 05:57 → N.ICU 09:41 → N.3E 17:35
PROVIDERS: ADMIT Internal Medicine Geriatric Medicine; ATTEND Internal Medicine Geriatric Medicine

== ENCOUNTER 2017-07-16 09:53 | Inpatient (IN) ==
[2017-07-16] MEDS ORDERED: ALBUTEROL/IPRATROPIUM 3 ML NEB RESP TX STA (10:29)
[2017-07-16 10:36] LABS: Basophils # 0.1 10*3/uL (0.0-0.2); Basophils % 0.5 % (0.0-0.8); Eosinophils % 0.1 % (0.00-10.9); Hematocrit 43.5 VOL% (42.0-52.0); Hemoglobin 13.4 GM/DL (14.0-18.0); Immature Granulocytes % 0.6 %; Immature Granulocytes Absolute 0.06 #; Lymphocytes # 1.6 10*3/uL (1.4-4.0); Lymphocytes % 16.1 % (21.2-54.2); Mean Corpuscular HGB Conc 30.8 GM/DL (32-36); Mean Corpuscular Hemoglobin 26 PG (27-34); Mean Corpuscular Volume 85.3 FL (87-102); Mean Platelet Volume 9.7 FL (9.6-12.0); Monocytes # 1.3 10*3/uL (0.11-0.8); Monocytes % 13.5 % (1.7-12.7); Neutrophils # 6.8 10*3/uL (1.4-7.4); Neutrophils % 69.2 % (38.7-73.9); Platelet Count 200 T/CUMM (130-400); Red Cell Distribution Width 18.3 % (9.3-17.3); White Blood Count 9.8 T/CUMM (4-12)
[2017-07-16 10:44] LABS: INR 1.4; PT Patient Result 14.5 SECS; Partial Thromboplastin Time 32.1 SECS (0-40)
[2017-07-16] MEDS ORDERED: FUROSEMIDE 40 MG/4 ML VIAL IV STA (11:02)
[2017-07-16 11:03] LABS: Alanine Aminotransferase 17 U/L (16-61); Albumin 2.9 G/DL (3.4-5.0); Alkaline Phosphatase 104 U/L (45-117); Aspartate Amino Transferase 36 U/L (0-37); Blood Urea Nitrogen 18 MG/DL (7-18); Calcium 8.9 MG/DL (8.5-10.1); Glucose 94 MG/DL (74-106); Osmolality,Calculated 269.2 MOS/KG (273-304); Potassium 3.6 MMOL/L (3.5-5.1); Sodium 134 MMOL/L (136-145); Total Protein 7.5 G/DL (6.4-8.3)
[2017-07-16 11:08] LABS: ABG Base Excess 0.2 MMOL/L (-2.5-2.5); ABG HCO3 24.1 MMOL/L (20-26); ABG PCO2 39.1 MM HG (35-48); ABG PH 7.409 (7.35-7.45); ABG PO2 41.6 MM HG (80-95); ABG TCO2 21.8 MMOL/L (23-27); Allen Test Positive
[2017-07-16 11:12] LABS: Troponin I Only 0.062 NG/ML (0.00-0.045)
[2017-07-16] MEDS ORDERED: FUROSEMIDE 100 MG/10 ML VIAL ONE (11:53)
[2017-07-16] MEDS ORDERED: ALBUTEROL 2.5 MG/3 ML NEB RESP TX PRN (14:13)
[2017-07-16] MEDS ORDERED: ONDANSETRON 4 MG/2 ML VIAL IV PRN (14:13)
[2017-07-16] MEDS ORDERED: MORPHINE 10 MG/1 ML VIAL ONE (15:57)
[2017-07-16] MEDS ORDERED: LORazepam 2 MG/1 ML VIAL ONE (16:04)
[2017-07-16] MEDS: ACETAMINOPHEN 325 MG TABLET PO PRN (16:10)
[2017-07-16 16:30] LABS: ABG Base Excess -2.4 MMOL/L (-2.5-2.5); ABG HCO3 22.9 MMOL/L (20-26); ABG Oxygen Saturation 81.7 % (95-100); ABG PCO2 41.3 MM HG (35-48); ABG PH 7.361 (7.35-7.45); ABG PO2 45.6 MM HG (80-95); ABG TCO2 24.1 MMOL/L (23-27)
[2017-07-16] MEDS ORDERED: MORPHINE 2 MG/1 ML SYRINGE IV ONE (16:31)
[2017-07-16] MEDS ORDERED: LORazepam 2 MG/1 ML VIAL IV ONE (16:31)
[2017-07-16] MEDS: FUROSEMIDE 40 MG/4 ML VIAL IV SCH (16:32)
[2017-07-16 16:35] LABS: Barbiturates Screen,Urine Negative (Negative); Benzodiazepines Screen,Urine Negative (Negative); Cannabinoid Screen,Urine Negative (Negative); Opiate Screen,Urine Negative (Negative); Phencyclidine Screen,Urine Negative (Negative)
[2017-07-16 16:43] LABS: Apearance,Urine CLEAR (Clear); Bilirubin,Urine Negative (Negative); Blood, Urine Moderate mg/dL (Negative); Glucose,Urine (UA) Negative (Negative); Ketones,Urine Negative (Negative); Mucus,Urine Occasional /LPF (Occasional); Nitrite,Urine Negative (Negative); Protein,Urine Negative; RBC,Urine 1 /HPF (0-4); Squamous Epithelial Cell,Urine Occasional /HPF (0-10); Urine Color Yellow (Yellow); Urine Urobilinogen < 2.0 EU/DL (0.2-1.0); WBC,Urine 2 /HPF (0-6)
[2017-07-16] MEDS ORDERED: LORazepam 2 MG/1 ML VIAL IV PRN (16:47)
[2017-07-16] MEDS ORDERED: methylPREDNISolone SOD SUC 125 MG/2 ML VIAL IV SCH (17:00)
[2017-07-16 17:32] LABS: Troponin I Only 0.073 NG/ML (0.00-0.045)
[2017-07-16] MEDS: methylPREDNISolone SOD SUC 125 MG/2 ML VIAL IV SCH (17:37)
[2017-07-16] MEDS: ENOXAPARIN 40 MG/0.4 ML SYRINGE SUBCUT SCH (17:38)
[2017-07-16] MEDS: SODIUM CHLORIDE 0.9% 1,000 ML IV SCH (17:38)
[2017-07-16] MEDS: PIPERACILLIN/TAZOBACTAM 3,375 MG in SODIUM CHLORIDE 0.9% 100 ML IV SCH (17:41)
[2017-07-16 18:23] LABS: ABG Base Excess -0.7 MMOL/L (-2.5-2.5); ABG HCO3 27.7 MMOL/L (20-26); ABG Oxygen Saturation 99.1 % (95-100); ABG PCO2 63.3 MM HG (35-48); ABG PH 7.259 (7.35-7.45); ABG PO2 185.2 MM HG (80-95); ABG TCO2 29.6 MMOL/L (23-27); Allen Test Positive; Pt O2 Delivery Device BIPAP
[2017-07-16 18:33] LABS: Apearance,Urine Slightly Hazy (Clear); Bilirubin,Urine Negative (Negative); Blood, Urine Moderate mg/dL (Negative); Glucose,Urine (UA) Negative (Negative); Ketones,Urine Negative (Negative); Mucus,Urine Occasional /LPF (Occasional); Nitrite,Urine Negative (Negative); Protein,Urine Negative; RBC,Urine 1 /HPF (0-4); Squamous Epithelial Cell,Urine Occasional /HPF (0-10); Urine Color Yellow (Yellow); Urine Specific Gravity 1.034 (1.001-1.035); WBC,Urine 1 /HPF (0-6)
[2017-07-17] MEDS: GLYCOPYRROLATE INH SCH ×3 (00:18→22:18)
[2017-07-17] MEDS: PIPERACILLIN/TAZOBACTAM 3,375 MG in SODIUM CHLORIDE 0.9% 100 ML IV SCH ×3 (00:18→16:13)
[2017-07-17] MEDS: methylPREDNISolone SOD SUC 125 MG/2 ML VIAL IV SCH ×4 (00:18→17:02)
[2017-07-17] MEDS: FORMOTEROL FUM INH SCH ×3 (00:18→22:18)
[2017-07-17 00:45] LABS: Troponin I Only 0.057 NG/ML (0.00-0.045)
[2017-07-17] MEDS: ENOXAPARIN 40 MG/0.4 ML SYRINGE SUBCUT SCH ×2 (05:29→16:13)
[2017-07-17] MEDS: SODIUM CHLORIDE 0.9% 1,000 ML IV SCH ×2 (05:32→08:07)
[2017-07-17 05:44] LABS: Basophils # 0.1 10*3/uL (0.0-0.2); Basophils % 0.9 % (0.0-0.8); Eosinophils % 0.6 % (0.00-10.9); Hematocrit 41.6 VOL% (42.0-52.0); Hemoglobin 12.4 GM/DL (14.0-18.0); Immature Granulocytes % 0.9 %; Immature Granulocytes Absolute 0.05 #; Lymphocytes # 0.9 10*3/uL (1.4-4.0); Lymphocytes % 16.3 % (21.2-54.2); Mean Corpuscular HGB Conc 29.8 GM/DL (32-36); Mean Corpuscular Hemoglobin 26 PG (27-34); Mean Corpuscular Volume 86.7 FL (87-102); Mean Platelet Volume 11.2 FL (9.6-12.0); Monocytes # 0.2 10*3/uL (0.11-0.8); Monocytes % 4.4 % (1.7-12.7); Neutrophils # 4.1 10*3/uL (1.4-7.4); Neutrophils % 76.9 % (38.7-73.9); Platelet Count 154 T/CUMM (130-400); Red Cell Distribution Width 18.4 % (9.3-17.3); White Blood Count 5.3 T/CUMM (4-12)
[2017-07-17 06:19] LABS: Calcium 8.1 MG/DL (8.5-10.1); Osmolality,Calculated 283.5 MOS/KG (273-304); Potassium 4.7 MMOL/L (3.5-5.1)
[2017-07-17 08:04] LABS: Band Neutrophils 13 % (0-10); Burr Cells 2+; Lymphocytes 38 % (20-55); Platelet Estimate Normal; Segmented Neutrophils 48 % (50-85); Total Cells Counted 100
[2017-07-17] MEDS: PANTOPRAZOLE 40 MG TABLET PO SCH (08:31)
[2017-07-17] MEDS: FUROSEMIDE 40 MG/4 ML VIAL IV SCH ×2 (08:31→15:09)
[2017-07-17] MEDS: LOSARTAN 25 MG TABLET PO SCH (08:31)
[2017-07-17] MEDS ORDERED: GLUCAGON 1 MG VIAL IM PRN (11:12)
[2017-07-17] MEDS ORDERED: DEXTROSE 50% 25 GM/50 ML VIAL IV PRN (11:12)
[2017-07-17] MEDS: INSULIN REGULAR 100 UNIT/ML SUBCUT SCH ×2 (12:21→17:02)
[2017-07-17] MEDS: ACETAMINOPHEN 325 MG TABLET PO PRN (13:54)
[2017-07-18] MEDS: INSULIN REGULAR 100 UNIT/ML SUBCUT SCH ×4 (00:12→19:42)
[2017-07-18] MEDS: methylPREDNISolone SOD SUC 125 MG/2 ML VIAL IV SCH ×2 (00:13→05:50)
[2017-07-18] MEDS: PIPERACILLIN/TAZOBACTAM 3,375 MG in SODIUM CHLORIDE 0.9% 100 ML IV SCH ×3 (01:47→18:28)
[2017-07-18] MEDS: ENOXAPARIN 40 MG/0.4 ML SYRINGE SUBCUT SCH ×2 (05:50→18:28)
[2017-07-18 05:58] LABS: Basophils % 0.2 % (0.0-0.8); Hematocrit 40.3 VOL% (42.0-52.0); Hemoglobin 12.6 GM/DL (14.0-18.0); Immature Granulocytes Absolute 0.11 #; Lymphocytes # 1.2 10*3/uL (1.4-4.0); Lymphocytes % 11.5 % (21.2-54.2); Mean Corpuscular HGB Conc 31.3 GM/DL (32-36); Mean Corpuscular Hemoglobin 26 PG (27-34); Mean Corpuscular Volume 83.3 FL (87-102); Mean Platelet Volume 10.3 FL (9.6-12.0); Monocytes # 0.5 10*3/uL (0.11-0.8); Monocytes % 4.7 % (1.7-12.7); Neutrophils # 8.9 10*3/uL (1.4-7.4); Neutrophils % 82.6 % (38.7-73.9); Platelet Count 209 T/CUMM (130-400); Red Blood Count 4.84 MC/CUMM (3.8-5.5); Red Cell Distribution Width 17.6 % (9.3-17.3); White Blood Count 10.8 T/CUMM (4-12)
[2017-07-18 06:22] LABS: Calcium 8.2 MG/DL (8.5-10.1); Potassium 4.4 MMOL/L (3.5-5.1)
[2017-07-18 06:45] LABS: Band Neutrophils 12 % (0-10); Burr Cells Slight; Lymphocytes 9 % (20-55); Platelet Estimate Adequate; Segmented Neutrophils 76 % (50-85); Total Cells Counted 100
[2017-07-18] MEDS ORDERED: methylPREDNISolone SOD SUC 40 MG/1 ML VIAL IV SCH (07:30)
[2017-07-18] MEDS: FORMOTEROL FUM INH SCH ×2 (08:00→21:39)
[2017-07-18] MEDS: GLYCOPYRROLATE INH SCH ×2 (08:00→21:39)
[2017-07-18] MEDS: FUROSEMIDE 40 MG/4 ML VIAL IV SCH ×2 (08:11→09:05)
[2017-07-18] MEDS: LOSARTAN 25 MG TABLET PO SCH (08:11)
[2017-07-18] MEDS: PANTOPRAZOLE 40 MG TABLET PO SCH (08:11)
[2017-07-18] MEDS: ROSUVASTATIN 20 MG TABLET PO SCH (09:14)
[2017-07-18] MEDS: METOPROLOL TARTRATE 25 MG TABLET PO SCH ×3 (09:14→21:38)
[2017-07-18] MEDS: methylPREDNISolone SOD SUC 40 MG/1 ML VIAL IV SCH ×2 (15:13→21:35)
[2017-07-19] MEDS: INSULIN REGULAR 100 UNIT/ML SUBCUT SCH ×4 (00:54→18:00)
[2017-07-19] MEDS: PIPERACILLIN/TAZOBACTAM 3,375 MG in SODIUM CHLORIDE 0.9% 100 ML IV SCH ×3 (02:05→17:10)
[2017-07-19] MEDS: ENOXAPARIN 40 MG/0.4 ML SYRINGE SUBCUT SCH ×2 (05:37→20:49)
[2017-07-19] MEDS: methylPREDNISolone SOD SUC 40 MG/1 ML VIAL IV SCH ×3 (06:10→20:49)
[2017-07-19] MEDS: ROSUVASTATIN 20 MG TABLET PO SCH (08:48)
[2017-07-19] MEDS: PANTOPRAZOLE 40 MG TABLET PO SCH (08:48)
[2017-07-19] MEDS: CARVEDILOL 6.25 MG TABLET PO SCH ×2 (08:48→17:07)
[2017-07-19] MEDS: LOSARTAN 25 MG TABLET PO SCH (08:48)
[2017-07-19] MEDS: FUROSEMIDE 40 MG/4 ML VIAL IV SCH (08:49)
[2017-07-19] MEDS: FORMOTEROL FUM INH SCH ×2 (08:51→20:52)
[2017-07-19] MEDS: GLYCOPYRROLATE INH SCH ×2 (08:51→20:52)
[2017-07-19] MEDS: ACETAMINOPHEN 325 MG TABLET PO PRN (17:07)
[2017-07-19] MEDS: MORPHINE 2 MG/1 ML SYRINGE IV PRN (18:41)
[2017-07-20] MEDS: INSULIN REGULAR 100 UNIT/ML SUBCUT SCH ×4 (00:12→18:10)
[2017-07-20] MEDS: PIPERACILLIN/TAZOBACTAM 3,375 MG in SODIUM CHLORIDE 0.9% 100 ML IV SCH ×3 (01:40→16:16)
[2017-07-20] MEDS: methylPREDNISolone SOD SUC 40 MG/1 ML VIAL IV SCH ×3 (05:41→22:33)
[2017-07-20 06:21] LABS: Basophils # 0.1 10*3/uL (0.0-0.2); Basophils % 0.4 % (0.0-0.8); Hematocrit 43.4 VOL% (42.0-52.0); Hemoglobin 13.2 GM/DL (14.0-18.0); Immature Granulocytes % 2.3 %; Immature Granulocytes Absolute 0.31 #; Lymphocytes # 2.1 10*3/uL (1.4-4.0); Lymphocytes % 15.7 % (21.2-54.2); Mean Corpuscular HGB Conc 30.4 GM/DL (32-36); Mean Corpuscular Hemoglobin 26 PG (27-34); Mean Corpuscular Volume 84.3 FL (87-102); Mean Platelet Volume 10.9 FL (9.6-12.0); Monocytes # 0.9 10*3/uL (0.11-0.8); Monocytes % 6.9 % (1.7-12.7); NRBC # 0.06 10*3/uL; Neutrophils # 9.9 10*3/uL (1.4-7.4); Neutrophils % 74.7 % (38.7-73.9); Platelet Count 274 T/CUMM (130-400); Red Blood Count 5.15 MC/CUMM (3.8-5.5); Red Cell Distribution Width 18.6 % (9.3-17.3); White Blood Count 13.2 T/CUMM (4-12)
[2017-07-20 06:49] LABS: Calcium 8.5 MG/DL (8.5-10.1); Osmolality,Calculated 286.5 MOS/KG (273-304); Potassium 4.5 MMOL/L (3.5-5.1)
[2017-07-20] MEDS: PANTOPRAZOLE 40 MG TABLET PO SCH (08:38)
[2017-07-20] MEDS: ROSUVASTATIN 20 MG TABLET PO SCH (08:38)
[2017-07-20] MEDS: CARVEDILOL 6.25 MG TABLET PO SCH ×2 (08:38→16:16)
[2017-07-20] MEDS: LOSARTAN 25 MG TABLET PO SCH (08:38)
[2017-07-20] MEDS: FORMOTEROL FUM INH SCH ×2 (08:39→22:36)
[2017-07-20] MEDS: GLYCOPYRROLATE INH SCH ×2 (08:39→22:36)
[2017-07-20] MEDS: FUROSEMIDE 40 MG/4 ML VIAL IV SCH (08:39)
[2017-07-20] MEDS: ENOXAPARIN 40 MG/0.4 ML SYRINGE SUBCUT SCH ×2 (08:45→22:34)
[2017-07-20 13:52] LABS: Apearance,Urine CLEAR (Clear); Bilirubin,Urine Negative (Negative); Blood, Urine Small mg/dL (Negative); Glucose,Urine (UA) Negative (Negative); Ketones,Urine Negative (Negative); Nitrite,Urine Negative (Negative); Protein,Urine Negative; Urine Color Straw (Yellow); Urine Specific Gravity 1.006 (1.001-1.035); Urine Urobilinogen < 2.0 EU/DL (0.2-1.0); WBC,Urine <1 /HPF (0-6)
[2017-07-20] MEDS: MORPHINE 2 MG/1 ML SYRINGE IV PRN (22:26)
[2017-07-21] MEDS: INSULIN REGULAR 100 UNIT/ML SUBCUT SCH ×4 (00:30→17:53)
[2017-07-21 01:28] LABS: Basophils # 0.1 10*3/uL (0.0-0.2); Basophils % 0.4 % (0.0-0.8); Hemoglobin 9.2 GM/DL (14.0-18.0); Immature Granulocytes % 4.9 %; Immature Granulocytes Absolute 0.82 #; Lymphocytes % 11.7 % (21.2-54.2); Mean Corpuscular HGB Conc 30.7 GM/DL (32-36); Mean Corpuscular Hemoglobin 26 PG (27-34); Mean Platelet Volume 10.3 FL (9.6-12.0); Monocytes # 1.3 10*3/uL (0.11-0.8); Monocytes % 7.9 % (1.7-12.7); NRBC # 0.13 10*3/uL; Neutrophils # 12.7 10*3/uL (1.4-7.4); Neutrophils % 75.1 % (38.7-73.9); Platelet Count 139 T/CUMM (130-400); Red Blood Count 3.49 MC/CUMM (3.8-5.5); Red Cell Distribution Width 18.5 % (9.3-17.3); White Blood Count 16.9 T/CUMM (4-12)
[2017-07-21 01:38] LABS: INR 1.3; PT Patient Result 13.1 SECS; Partial Thromboplastin Time 27.8 SECS (0-40)
[2017-07-21] MEDS: PIPERACILLIN/TAZOBACTAM 3,375 MG in SODIUM CHLORIDE 0.9% 100 ML IV SCH ×2 (01:55→14:41)
[2017-07-21] MEDS: HYDROmorphone 2 MG/1 ML VIAL IV PRN ×2 (02:00→08:40)
[2017-07-21 02:02] LABS: Bilirubin,Total 0.8 MG/DL (0.2-1.0); Calcium 8.9 MG/DL (8.5-10.1); Osmolality,Calculated 285.5 MOS/KG (273-304); Potassium 4.7 MMOL/L (3.5-5.1); Total Protein 6.7 G/DL (6.4-8.3)
[2017-07-21 02:04] LABS: Lactic Acid 3.5 MMOL/L (0.4-2.0)
[2017-07-21 02:05] LABS: Lymphocytes 15 % (20-55); Metamyelocytes 1 %; Myelocytes 3 %; Segmented Neutrophils 78 % (50-85); Total Cells Counted 100
[2017-07-21 02:06] LABS: Anisocytosis 1+; Hypochromasia 1+; Ovalocytes 1+
[2017-07-21 02:07] LABS: Platelet Estimate Adequate
[2017-07-21 02:12] LABS: Calcium 8.5 MG/DL (8.5-10.1); Osmolality,Calculated 286.5 MOS/KG (273-304); Potassium 4.5 MMOL/L (3.5-5.1)
[2017-07-21] MEDS: methylPREDNISolone SOD SUC 40 MG/1 ML VIAL IV SCH ×2 (05:32→18:17)
[2017-07-21 06:00] LABS: Basophils # 0.1 10*3/uL (0.0-0.2); Basophils % 0.3 % (0.0-0.8); Hematocrit 30.1 VOL% (42.0-52.0); Hemoglobin 9.2 GM/DL (14.0-18.0); Immature Granulocytes % 5.8 %; Immature Granulocytes Absolute 1.35 #; Lymphocytes # 2.6 10*3/uL (1.4-4.0); Lymphocytes % 11.3 % (21.2-54.2); Mean Corpuscular HGB Conc 30.6 GM/DL (32-36); Mean Corpuscular Hemoglobin 26 PG (27-34); Mean Corpuscular Volume 83.6 FL (87-102); Mean Platelet Volume 9.8 FL (9.6-12.0); Monocytes # 1.5 10*3/uL (0.11-0.8); Monocytes % 6.5 % (1.7-12.7); NRBC # 0.13 10*3/uL; Neutrophils # 17.6 10*3/uL (1.4-7.4); Neutrophils % 76.1 % (38.7-73.9); Platelet Count 283 T/CUMM (130-400); Red Cell Distribution Width 18.4 % (9.3-17.3); White Blood Count 23.1 T/CUMM (4-12)
[2017-07-21 06:20] LABS: Hypochromasia 1+; Lymphocytes 12 % (20-55); Metamyelocytes 1 %; Microcytosis 1+; Myelocytes 2 %; Segmented Neutrophils 80 % (50-85); Total Cells Counted 100
[2017-07-21 06:21] LABS: Ovalocytes Slight; Platelet Estimate Normal
[2017-07-21] MEDS ORDERED: SODIUM CHLORIDE 0.9% 1,000 ML IV SCH (10:30)
[2017-07-21] MEDS: FUROSEMIDE 40 MG/4 ML VIAL IV SCH (10:54)
[2017-07-21] MEDS: PANTOPRAZOLE 40 MG TABLET PO SCH (10:55)
[2017-07-21] MEDS: GLYCOPYRROLATE INH SCH ×2 (10:55→21:33)
[2017-07-21] MEDS: CARVEDILOL 6.25 MG TABLET PO SCH (10:55)
[2017-07-21] MEDS: ROSUVASTATIN 20 MG TABLET PO SCH (10:55)
[2017-07-21] MEDS: LOSARTAN 25 MG TABLET PO SCH (10:55)
[2017-07-21] MEDS: FORMOTEROL FUM INH SCH ×2 (10:55→21:33)
[2017-07-21] MEDS: LEVOFLOXACIN INJ 750 MG in PREMIX 1 EACH IV SCH (11:06)
[2017-07-21] MEDS: METOCLOPRAMIDE 10 MG/2 ML VIAL IV SCH ×4 (12:24→18:22)
[2017-07-21] MEDS ORDERED: SODIUM CHLORIDE 0.9% 500 ML IV SCH (13:09)
[2017-07-21] MEDS ORDERED: SODIUM CHLORIDE 0.9% 500 ML IV ONE (13:11)
[2017-07-21 13:27] LABS: Hematocrit 27.3 VOL% (42.0-52.0); Hemoglobin 8.3 GM/DL (14.0-18.0)
[2017-07-21] MEDS: SODIUM CHLORIDE 0.9% 1,000 ML IV SCH ×2 (14:43→18:23)
[2017-07-21] MEDS: MAGNESIUM HYDROXIDE SUSP 30 ML UDCUP PO PRN (14:46)
[2017-07-21] MEDS ORDERED: HYDROmorphone 2 MG/1 ML VIAL IV PRN (16:46)
[2017-07-21 19:28] LABS: Hematocrit 25.8 VOL% (42.0-52.0); Hemoglobin 7.7 GM/DL (14.0-18.0)
[2017-07-22] MEDS: INSULIN REGULAR 100 UNIT/ML SUBCUT SCH ×4 (00:37→19:21)
[2017-07-22] MEDS: METOCLOPRAMIDE 10 MG/2 ML VIAL IV SCH ×4 (00:38→19:26)
[2017-07-22] MEDS: MAGNESIUM HYDROXIDE SUSP 30 ML UDCUP PO PRN (01:13)
[2017-07-22] MEDS: SODIUM CHLORIDE 0.9% 1,000 ML IV SCH (03:44)
[2017-07-22] MEDS ORDERED: MAGNESIUM CITRATE 300 ML BOTTLE PO ONE (03:51)
[2017-07-22 03:56] LABS: Hemoglobin 6.8 GM/DL (14.0-18.0)
[2017-07-22] MEDS: methylPREDNISolone SOD SUC 40 MG/1 ML VIAL IV SCH ×2 (05:39→21:26)
[2017-07-22] MEDS ORDERED: SODIUM CHLORIDE 0.9% 1,000 ML IV PRN ×2 (07:09→13:06)
[2017-07-22] MEDS: LOSARTAN 25 MG TABLET PO SCH (10:45)
[2017-07-22] MEDS: ROSUVASTATIN 20 MG TABLET PO SCH (13:05)
[2017-07-22] MEDS: FORMOTEROL FUM INH SCH ×2 (13:05→21:29)
[2017-07-22] MEDS: PANTOPRAZOLE 40 MG TABLET PO SCH (13:05)
[2017-07-22] MEDS: GLYCOPYRROLATE INH SCH ×2 (13:05→21:29)
[2017-07-22] MEDS: LEVOFLOXACIN INJ 750 MG in PREMIX 1 EACH IV SCH (15:57)
[2017-07-22 19:12] LABS: Hematocrit 23.5 VOL% (42.0-52.0); Hemoglobin 7.8 GM/DL (14.0-18.0)
[2017-07-23] MEDS: SODIUM CHLORIDE 0.9% 1,000 ML IV SCH ×4 (00:31→15:05)
[2017-07-23] MEDS: METOCLOPRAMIDE 10 MG/2 ML VIAL IV SCH ×4 (00:35→19:25)
[2017-07-23] MEDS: INSULIN REGULAR 100 UNIT/ML SUBCUT SCH ×4 (00:38→18:54)
[2017-07-23 04:44] LABS: Hematocrit 21.2 VOL% (42.0-52.0); Hemoglobin 6.9 GM/DL (14.0-18.0)
[2017-07-23 04:45] LABS: INR 1.2; PT Patient Result 12.6 SECS
[2017-07-23] MEDS ORDERED: SODIUM CHLORIDE 0.9% 1,000 ML IV PRN (08:42)
[2017-07-23 09:46] LABS: Hematocrit 24.2 VOL% (42.0-52.0); Hemoglobin 7.6 GM/DL (14.0-18.0)
[2017-07-23 09:47] LABS: Basophils % 0.2 % (0.0-0.8); Hematocrit 24.1 VOL% (42.0-52.0); Hemoglobin 7.5 GM/DL (14.0-18.0); Immature Granulocytes % 8.2 %; Immature Granulocytes Absolute 1.65 #; Lymphocytes # 2.2 10*3/uL (1.4-4.0); Lymphocytes % 10.8 % (21.2-54.2); Mean Corpuscular HGB Conc 31.1 GM/DL (32-36); Mean Corpuscular Hemoglobin 27 PG (27-34); Mean Platelet Volume 9.6 FL (9.6-12.0); Monocytes # 1.3 10*3/uL (0.11-0.8); Monocytes % 6.6 % (1.7-12.7); NRBC # 0.41 10*3/uL; Neutrophils % 74.2 % (38.7-73.9); Platelet Count 204 T/CUMM (130-400); Red Blood Count 2.74 MC/CUMM (3.8-5.5); Red Cell Distribution Width 18.2 % (9.3-17.3); White Blood Count 20.2 T/CUMM (4-12)
[2017-07-23 10:28] LABS: Calcium 8.1 MG/DL (8.5-10.1); Magnesium 3.6 MG/DL (1.8-2.4); Osmolality,Calculated 297.8 MOS/KG (273-304); Potassium 5.3 MMOL/L (3.5-5.1)
[2017-07-23] MEDS: ROSUVASTATIN 20 MG TABLET PO SCH (10:58)
[2017-07-23] MEDS: methylPREDNISolone SOD SUC 40 MG/1 ML VIAL IV SCH ×2 (10:58→20:56)
[2017-07-23] MEDS: PANTOPRAZOLE 40 MG TABLET PO SCH (10:58)
[2017-07-23] MEDS: FORMOTEROL FUM INH SCH ×2 (10:59→20:58)
[2017-07-23] MEDS: GLYCOPYRROLATE INH SCH ×2 (10:59→20:58)
[2017-07-23] MEDS: LEVOFLOXACIN INJ 750 MG in PREMIX 1 EACH IV SCH (11:20)
[2017-07-23 13:35] LABS: Hypochromasia 1+; Macrocytosis 1+; Polychromasia Slight
[2017-07-23] MEDS ORDERED: SODIUM CHLORIDE 0.9% 1,000 ML IV SCH (14:51)
[2017-07-23] MEDS ORDERED: SODIUM POLYSTYRENE SULFATE 15 GM/60 ML BOTTLE PO ONE (15:30)
[2017-07-23] MEDS ORDERED: FUROSEMIDE 40 MG/4 ML VIAL IV ONE (16:00)
[2017-07-24] MEDS: METOCLOPRAMIDE 10 MG/2 ML VIAL IV SCH ×4 (00:15→19:01)
[2017-07-24] MEDS: INSULIN REGULAR 100 UNIT/ML SUBCUT SCH ×4 (00:20→18:34)
[2017-07-24 00:51] LABS: Hematocrit 26.7 VOL% (42.0-52.0); Hemoglobin 8.4 GM/DL (14.0-18.0)
[2017-07-24 03:20] LABS: Basophils % 0.1 % (0.0-0.8); Hematocrit 28.4 VOL% (42.0-52.0); Immature Granulocytes % 6.9 %; Immature Granulocytes Absolute 1.05 #; Lymphocytes # 1.3 10*3/uL (1.4-4.0); Lymphocytes % 8.6 % (21.2-54.2); Mean Corpuscular HGB Conc 31.7 GM/DL (32-36); Mean Corpuscular Hemoglobin 28 PG (27-34); Mean Corpuscular Volume 87.1 FL (87-102); Mean Platelet Volume 9.8 FL (9.6-12.0); Monocytes # 0.8 10*3/uL (0.11-0.8); Monocytes % 5.3 % (1.7-12.7); NRBC # 0.27 10*3/uL; Neutrophils # 12.1 10*3/uL (1.4-7.4); Neutrophils % 79.1 % (38.7-73.9); Platelet Count 169 T/CUMM (130-400); Red Blood Count 3.26 MC/CUMM (3.8-5.5); Red Cell Distribution Width 19.4 % (9.3-17.3); White Blood Count 15.3 T/CUMM (4-12)
[2017-07-24 04:02] LABS: Lymphocytes 8 % (20-55); Myelocytes 5 %; Nucleated Red Blood Cells 1 (0-5); Segmented Neutrophils 83 % (50-85)
[2017-07-24 04:04] LABS: Calcium 8.5 MG/DL (8.5-10.1); Potassium 4.2 MMOL/L (3.5-5.1)
[2017-07-24 04:43] LABS: Hypochromasia 2+; Platelet Estimate Normal
[2017-07-24 04:44] LABS: Elliptocytes Few; Polychromasia Few; Total Cells Counted 100
[2017-07-24] MEDS: ROSUVASTATIN 20 MG TABLET PO SCH (10:15)
[2017-07-24] MEDS: PANTOPRAZOLE 40 MG TABLET PO SCH (10:15)
[2017-07-24] MEDS: GLYCOPYRROLATE INH SCH ×2 (10:15→21:20)
[2017-07-24] MEDS: methylPREDNISolone SOD SUC 40 MG/1 ML VIAL IV SCH ×2 (10:15→21:18)
[2017-07-24] MEDS: FORMOTEROL FUM INH SCH ×2 (10:15→21:20)
[2017-07-24] MEDS: LEVOFLOXACIN INJ 750 MG in PREMIX 1 EACH IV SCH (10:16)
[2017-07-25] MEDS: METOCLOPRAMIDE 10 MG/2 ML VIAL IV SCH ×4 (00:55→18:50)
[2017-07-25] MEDS: INSULIN REGULAR 100 UNIT/ML SUBCUT SCH ×4 (00:56→18:51)
[2017-07-25 05:30] LABS: Basophils % 0.1 % (0.0-0.8); Hematocrit 28.2 VOL% (42.0-52.0); Hemoglobin 8.9 GM/DL (14.0-18.0); Immature Granulocytes % 4.8 %; Lymphocytes # 1.3 10*3/uL (1.4-4.0); Lymphocytes % 10.2 % (21.2-54.2); Mean Corpuscular HGB Conc 31.6 GM/DL (32-36); Mean Corpuscular Hemoglobin 28 PG (27-34); Mean Corpuscular Volume 87.9 FL (87-102); Mean Platelet Volume 9.7 FL (9.6-12.0); Monocytes # 0.6 10*3/uL (0.11-0.8); Monocytes % 4.6 % (1.7-12.7); Neutrophils % 80.3 % (38.7-73.9); Platelet Count 164 T/CUMM (130-400); Red Blood Count 3.21 MC/CUMM (3.8-5.5); Red Cell Distribution Width 19.5 % (9.3-17.3); White Blood Count 12.5 T/CUMM (4-12)
[2017-07-25 05:35] LABS: Albumin 2.5 G/DL (3.4-5.0); Bilirubin,Total 2.5 MG/DL (0.2-1.0); Calcium 8.2 MG/DL (8.5-10.1); Magnesium 2.5 MG/DL (1.8-2.4); Phosphorous 3.2 MG/DL (2.5-4.9); Potassium 4.3 MMOL/L (3.5-5.1); Total Protein 5.4 G/DL (6.4-8.3)
[2017-07-25 06:24] LABS: Lymphocytes 7 % (20-55); Metamyelocytes 1 %; Nucleated Red Blood Cells 1 (0-5); Segmented Neutrophils 90 % (50-85); Total Cells Counted 100
[2017-07-25 06:25] LABS: Hypochromasia 2+; Platelet Estimate Normal
[2017-07-25] MEDS: LEVOFLOXACIN INJ 750 MG in PREMIX 1 EACH IV SCH (08:48)
[2017-07-25] MEDS: PANTOPRAZOLE 40 MG TABLET PO SCH (08:53)
[2017-07-25] MEDS: GLYCOPYRROLATE INH SCH ×2 (08:53→22:05)
[2017-07-25] MEDS: FORMOTEROL FUM INH SCH ×2 (08:53→22:05)
[2017-07-25] MEDS: ROSUVASTATIN 20 MG TABLET PO SCH (08:53)
[2017-07-25] MEDS: methylPREDNISolone SOD SUC 40 MG/1 ML VIAL IV SCH ×2 (08:58→22:01)
[2017-07-25] MEDS: FUROSEMIDE 40 MG TABLET PO SCH (13:40)
[2017-07-26] MEDS: INSULIN REGULAR 100 UNIT/ML SUBCUT SCH ×4 (00:33→17:17)
[2017-07-26] MEDS: METOCLOPRAMIDE 10 MG/2 ML VIAL IV SCH ×4 (00:53→17:17)
[2017-07-26 06:46] LABS: Basophils % 0.1 % (0.0-0.8); Hematocrit 28.9 VOL% (42.0-52.0); Hemoglobin 9.3 GM/DL (14.0-18.0); Immature Granulocytes % 2.9 %; Immature Granulocytes Absolute 0.51 #; Lymphocytes # 1.4 10*3/uL (1.4-4.0); Lymphocytes % 8.1 % (21.2-54.2); Mean Corpuscular HGB Conc 32.2 GM/DL (32-36); Mean Corpuscular Hemoglobin 28 PG (27-34); Mean Corpuscular Volume 88.4 FL (87-102); Mean Platelet Volume 10.1 FL (9.6-12.0); Monocytes # 0.7 10*3/uL (0.11-0.8); Monocytes % 3.9 % (1.7-12.7); NRBC # 0.08 10*3/uL; Neutrophils # 15.1 10*3/uL (1.4-7.4); Platelet Count 178 T/CUMM (130-400); Red Blood Count 3.27 MC/CUMM (3.8-5.5); Red Cell Distribution Width 19.9 % (9.3-17.3); White Blood Count 17.8 T/CUMM (4-12)
[2017-07-26 07:04] LABS: Bilirubin,Direct 0.58 MG/DL (0.0-0.20)
[2017-07-26 07:17] LABS: Hypochromasia 2+; Lymphocytes 6 % (20-55); Segmented Neutrophils 93 % (50-85); Total Cells Counted 100
[2017-07-26 07:18] LABS: Microcytosis 1+; Ovalocytes Slight; Platelet Estimate Adequate
[2017-07-26] MEDS: ROSUVASTATIN 20 MG TABLET PO SCH (10:19)
[2017-07-26] MEDS: LEVOFLOXACIN INJ 750 MG in PREMIX 1 EACH IV SCH (10:20)
[2017-07-26] MEDS: PANTOPRAZOLE 40 MG TABLET PO SCH (10:20)
[2017-07-26] MEDS: FUROSEMIDE 40 MG TABLET PO SCH (10:20)
[2017-07-26] MEDS: methylPREDNISolone SOD SUC 40 MG/1 ML VIAL IV SCH ×2 (10:20→21:20)
[2017-07-26] MEDS: FORMOTEROL FUM INH SCH ×2 (10:21→21:20)
[2017-07-26] MEDS: GLYCOPYRROLATE INH SCH ×2 (10:21→21:20)
[2017-07-26] MEDS ORDERED: ROSUVASTATIN 20 MG TABLET PO SCH (21:00)
[2017-07-26] MEDS: CARVEDILOL 12.5 MG TABLET PO SCH (21:20)
[2017-07-27] MEDS: INSULIN REGULAR 100 UNIT/ML SUBCUT SCH ×3 (01:15→16:37)
[2017-07-27] MEDS: METOCLOPRAMIDE 10 MG/2 ML VIAL IV SCH ×2 (01:24→06:27)
[2017-07-27 05:19] LABS: Basophils % 0.1 % (0.0-0.8); Hematocrit 30.4 VOL% (42.0-52.0); Hemoglobin 9.6 GM/DL (14.0-18.0); Immature Granulocytes % 2.9 %; Lymphocytes # 1.6 10*3/uL (1.4-4.0); Lymphocytes % 7.9 % (21.2-54.2); Mean Corpuscular HGB Conc 31.6 GM/DL (32-36); Mean Corpuscular Hemoglobin 28 PG (27-34); Mean Corpuscular Volume 88.9 FL (87-102); Mean Platelet Volume 10.1 FL (9.6-12.0); Monocytes % 4.8 % (1.7-12.7); NRBC # 0.08 10*3/uL; Neutrophils # 17.4 10*3/uL (1.4-7.4); Neutrophils % 84.3 % (38.7-73.9); Platelet Count 184 T/CUMM (130-400); Red Blood Count 3.42 MC/CUMM (3.8-5.5); Red Cell Distribution Width 20.3 % (9.3-17.3); White Blood Count 20.6 T/CUMM (4-12)
[2017-07-27 05:44] LABS: Giant Platelets Few; Hypochromasia 1+; Lymphocytes 8 % (20-55); Macrocytosis Slight; Ovalocytes Slight; Platelet Estimate Normal; Polychromasia Slight; Segmented Neutrophils 89 % (50-85); Total Cells Counted 100
[2017-07-27 05:52] LABS: Calcium 8.2 MG/DL (8.5-10.1); Magnesium 2.1 MG/DL (1.8-2.4); Osmolality,Calculated 282.4 MOS/KG (273-304); Potassium 4.5 MMOL/L (3.5-5.1)
[2017-07-27 05:58] LABS: Albumin 2.6 G/DL (3.4-5.0); Bilirubin,Total 3.7 MG/DL (0.2-1.0); Osmolality,Calculated 281.5 MOS/KG (273-304); Potassium 4.4 MMOL/L (3.5-5.1); Total Protein 5.2 G/DL (6.4-8.3)
[2017-07-27] MEDS: GLYCOPYRROLATE INH SCH (09:59)
[2017-07-27] MEDS: PANTOPRAZOLE 40 MG TABLET PO SCH (09:59)
[2017-07-27] MEDS: FUROSEMIDE 40 MG TABLET PO SCH (09:59)
[2017-07-27] MEDS: FORMOTEROL FUM INH SCH (09:59)
[2017-07-27] MEDS: CARVEDILOL 12.5 MG TABLET PO SCH (09:59)
[2017-07-27] MEDS: LEVOFLOXACIN INJ 750 MG in PREMIX 1 EACH IV SCH (10:11)
[2017-07-27] MEDS: methylPREDNISolone SOD SUC 40 MG/1 ML VIAL IV SCH (10:11)
[2017-07-27] MEDS ORDERED: predniSONE 20 MG TABLET PO SCH (10:30)
[2017-07-27 16:26] VITALS: BP 117/67
== END 2017-07-27 16:55 | disposition home or self-care (01) | DRG 291 ==
LOC: N.ED 09:53 → N.EDINP 12:03 → N.4E 14:14 → N.CC 16:30 → N.2E 07-18 11:03
PROVIDERS: ADMIT Internal Medicine; ATTEND Internal Medicine

== ENCOUNTER 2017-09-16 17:31 | Inpatient (IN) ==
[2017-09-16] MEDS ORDERED: FUROSEMIDE 100 MG/10 ML VIAL IV STA (17:53)
[2017-09-16] MEDS ORDERED: ALBUTEROL 2.5 MG/3 ML NEB RESP TX SCH (18:00)
[2017-09-16 18:07] LABS: ABG Base Excess 2.8 MMOL/L (-2.5-2.5); ABG HCO3 26.5 MMOL/L (20-26); ABG PCO2 37.7 MM HG (35-48); ABG PH 7.464 (7.35-7.45); ABG TCO2 27.6 MMOL/L (23-27); Allen Test Positive
[2017-09-16] MEDS ORDERED: FUROSEMIDE 20 MG/2 ML VIAL ONE (18:11)
[2017-09-16] MEDS ORDERED: FUROSEMIDE 40 MG/4 ML VIAL ONE (18:11)
[2017-09-16 18:22] LABS: Basophils % 0.1 % (0.0-0.8); Eosinophils # 0.2 10*3/uL (0.0-0.87); Eosinophils % 0.9 % (0.00-10.9); Hematocrit 46.7 VOL% (42.0-52.0); Hemoglobin 13.8 GM/DL (14.0-18.0); Immature Granulocytes % 0.9 %; Immature Granulocytes Absolute 0.17 #; Lymphocytes # 3.2 10*3/uL (1.4-4.0); Lymphocytes % 16.1 % (21.2-54.2); Mean Corpuscular HGB Conc 29.6 GM/DL (32-36); Mean Corpuscular Hemoglobin 29 PG (27-34); Mean Corpuscular Volume 97.5 FL (87-102); Mean Platelet Volume 9.6 FL (9.6-12.0); Monocytes % 9.9 % (1.7-12.7); NRBC # 0.13 10*3/uL; Neutrophils # 14.3 10*3/uL (1.4-7.4); Neutrophils % 72.1 % (38.7-73.9); Platelet Count 171 T/CUMM (130-400); Red Blood Count 4.79 MC/CUMM (3.8-5.5); Red Cell Distribution Width 22.1 % (9.3-17.3); White Blood Count 19.8 T/CUMM (4-12)
[2017-09-16 18:39] LABS: Albumin 3.1 G/DL (3.4-5.0); Osmolality,Calculated 282.3 MOS/KG (273-304); Potassium 4.1 MMOL/L (3.5-5.1); Total Protein 6.4 G/DL (6.4-8.3)
[2017-09-16] MEDS ORDERED: MEROPENEM 1,000 MG in SODIUM CHLORIDE 0.9% 100 ML IV STA (18:52)
[2017-09-16] MEDS ORDERED: MEROPENEM 1,000 MG VIAL IV ONE (20:00)
[2017-09-16 20:03] LABS: Apearance,Urine CLOUDY (Clear); Bacteria,Urine Occasional /HPF (Few); Bilirubin,Urine Negative (Negative); Blood, Urine Large mg/dL (Negative); Glucose,Urine (UA) Negative (Negative); Hyaline Casts,Urine 5 /LPF (0-3); Ketones,Urine Negative (Negative); Mucus,Urine Occasional /LPF (Occasional); Nitrite,Urine Negative (Negative); Protein,Urine 30 MG/DL; RBC,Urine 1 /HPF (0-4); Squamous Epithelial Cell,Urine Occasional /HPF (0-10); Urine Color Yellow (Yellow); Urine Specific Gravity 1.008 (1.001-1.035); Urine Urobilinogen < 2.0 EU/DL (0.2-1.0); WBC,Urine 2 /HPF (0-6)
[2017-09-16] MEDS ORDERED: MORPHINE 2 MG/1 ML SYRINGE IV PRN (21:41)
[2017-09-16] MEDS ORDERED: ONDANSETRON 4 MG/2 ML VIAL IV PRN (21:41)
[2017-09-16] MEDS ORDERED: ALBUTEROL/IPRATROPIUM 3 ML NEB RESP TX PRN (21:41)
[2017-09-16 22:20] LABS: Lactic Acid 1.1 MMOL/L (0.4-2.0)
[2017-09-16 22:22] LABS: Cholesterol 132 MG/DL (50-200); HDL Cholesterol 68 MG/DL (40-60); Risk Ratio 1.94; Triglycerides 71 MG/DL (2-150); VLDL CHOLESTEROL 14.2 MG/DL
[2017-09-16 22:24] LABS: Troponin I Only 0.284 NG/ML (0.00-0.045)
[2017-09-16] MEDS ORDERED: DOCUSATE SODIUM 100 MG CAPSULE ONE (23:15)
[2017-09-16] MEDS ORDERED: methylPREDNISolone SOD SUC 40 MG/1 ML VIAL ONE (23:15)
[2017-09-16] MEDS: DOCUSATE SODIUM 100 MG CAPSULE PO SCH (23:19)
[2017-09-16] MEDS: methylPREDNISolone SOD SUC 40 MG/1 ML VIAL IV SCH (23:20)
[2017-09-16] MEDS: VANCOMYCIN INJ 1,250 MG in SODIUM CHLORIDE 0.9% 250 ML IV SCH (23:22)
[2017-09-17] MEDS ORDERED: SODIUM CHLORIDE 0.9% 100 ML IV ONE (00:45)
[2017-09-17] MEDS ORDERED: PIPERACILLIN/TAZOBACTAM 3,375 MG VIAL IV ONE ×2 (00:45→08:21)
[2017-09-17] MEDS: PIPERACILLIN/TAZOBACTAM 3,375 MG in SODIUM CHLORIDE 0.9% 100 ML IV SCH ×2 (00:47→08:34)
[2017-09-17 01:43] LABS: Allen Test Positive; Pt O2 Delivery Device BIPAP
[2017-09-17 01:44] LABS: ABG Base Excess 7.4 MMOL/L (-2.5-2.5); ABG HCO3 31.1 MMOL/L (20-26); ABG Oxygen Saturation 93.8 % (95-100); ABG PCO2 47.7 MM HG (35-48); ABG PH 7.446 (7.35-7.45); ABG PO2 73.5 MM HG (80-95); ABG TCO2 28.4 MMOL/L (23-27)
[2017-09-17] MEDS ORDERED: hydrALAZINE 20 MG/1 ML VIAL IV PRN (02:35)
[2017-09-17] MEDS ORDERED: hydrALAZINE 20 MG/1 ML VIAL ONE (02:53)
[2017-09-17] MEDS: ALBUTEROL/IPRATROPIUM 3 ML NEB RESP TX SCH ×4 (03:21→20:02)
[2017-09-17] MEDS ORDERED: methylPREDNISolone SOD SUC 40 MG/1 ML VIAL ONE ×2 (06:03→14:58)
[2017-09-17] MEDS: methylPREDNISolone SOD SUC 40 MG/1 ML VIAL IV SCH ×3 (06:07→21:49)
[2017-09-17] MEDS ORDERED: FUROSEMIDE 40 MG/4 ML VIAL ONE (08:21)
[2017-09-17 08:33] LABS: Troponin I Only 0.122 NG/ML (0.00-0.045)
[2017-09-17] MEDS: FUROSEMIDE 40 MG/4 ML VIAL IV SCH ×2 (08:33→16:20)
[2017-09-17 08:43] LABS: Calcium 8.6 MG/DL (8.5-10.1); Osmolality,Calculated 285.1 MOS/KG (273-304); Potassium 4.1 MMOL/L (3.5-5.1)
[2017-09-17 08:59] LABS: Basophils % 0.1 % (0.0-0.8); Eosinophils % 0.1 % (0.00-10.9); Hematocrit 45.3 VOL% (42.0-52.0); Immature Granulocytes % 0.6 %; Immature Granulocytes Absolute 0.07 #; Lymphocytes # 0.7 10*3/uL (1.4-4.0); Lymphocytes % 5.5 % (21.2-54.2); Mean Corpuscular HGB Conc 30.2 GM/DL (32-36); Mean Corpuscular Hemoglobin 29 PG (27-34); Monocytes # 0.1 10*3/uL (0.11-0.8); Monocytes % 1.2 % (1.7-12.7); Neutrophils # 11.2 10*3/uL (1.4-7.4); Neutrophils % 92.5 % (38.7-73.9); Platelet Count 128 T/CUMM (130-400); Red Blood Count 4.67 MC/CUMM (3.8-5.5); Red Cell Distribution Width 21.8 % (9.3-17.3); White Blood Count 12.1 T/CUMM (4-12)
[2017-09-17 09:00] LABS: Hemoglobin 13.7 GM/DL (14.0-18.0)
[2017-09-17 09:10] LABS: Giant Platelets Few; Hypochromasia 1+; Lymphocytes 5 % (20-55); Ovalocytes Slight; Platelet Estimate Normal; Segmented Neutrophils 93 % (50-85); Total Cells Counted 100
[2017-09-17] MEDS ORDERED: DOCUSATE SODIUM 100 MG CAPSULE ONE (09:17)
[2017-09-17] MEDS ORDERED: PANTOPRAZOLE 40 MG TABLET PO ONE (09:17)
[2017-09-17] MEDS: PANTOPRAZOLE 40 MG TABLET PO SCH (09:19)
[2017-09-17] MEDS: DOCUSATE SODIUM 100 MG CAPSULE PO SCH ×2 (09:20→21:50)
[2017-09-17] MEDS ORDERED: METOPROLOL TARTRATE 25 MG TABLET PO SCH (10:00)
[2017-09-17] MEDS ORDERED: ASPIRIN EC 325 MG TABLET PO ONE (10:16)
[2017-09-17] MEDS ORDERED: METOPROLOL TARTRATE 25 MG TABLET ONE (10:16)
[2017-09-17] MEDS ORDERED: ASPIRIN CHEW 81 MG TABLET PO ONE (10:24)
[2017-09-17] MEDS: VANCOMYCIN INJ 1,250 MG in SODIUM CHLORIDE 0.9% 250 ML IV SCH (10:48)
[2017-09-17] MEDS: ASPIRIN EC 81 MG TABLET PO SCH (10:52)
[2017-09-17] MEDS: ISOSORBIDE MONONITRATE 30 MG TABLET PO SCH (12:11)
[2017-09-17] MEDS ORDERED: ROSUVASTATIN 20 MG TABLET PO SCH (21:00)
[2017-09-17] MEDS: CARVEDILOL 12.5 MG TABLET PO SCH (21:50)
[2017-09-18] MEDS: ALBUTEROL/IPRATROPIUM 3 ML NEB RESP TX SCH ×3 (01:39→13:40)
[2017-09-18] MEDS: methylPREDNISolone SOD SUC 40 MG/1 ML VIAL IV SCH ×2 (06:28→14:16)
[2017-09-18 08:26] LABS: Hematocrit 41.4 VOL% (42.0-52.0); Hemoglobin 12.9 GM/DL (14.0-18.0); Immature Granulocytes % 0.6 %; Immature Granulocytes Absolute 0.07 #; Lymphocytes # 0.6 10*3/uL (1.4-4.0); Lymphocytes % 5.3 % (21.2-54.2); Mean Corpuscular HGB Conc 31.2 GM/DL (32-36); Mean Corpuscular Hemoglobin 30 PG (27-34); Mean Corpuscular Volume 94.5 FL (87-102); Mean Platelet Volume 10.6 FL (9.6-12.0); Monocytes # 0.9 10*3/uL (0.11-0.8); Monocytes % 7.7 % (1.7-12.7); Neutrophils # 9.7 10*3/uL (1.4-7.4); Neutrophils % 86.4 % (38.7-73.9); Platelet Count 140 T/CUMM (130-400); Red Blood Count 4.38 MC/CUMM (3.8-5.5); White Blood Count 11.2 T/CUMM (4-12)
[2017-09-18 08:27] LABS: Calcium 8.7 MG/DL (8.5-10.1); Osmolality,Calculated 282.4 MOS/KG (273-304)
[2017-09-18] MEDS ORDERED: LOSARTAN 25 MG TABLET PO SCH (09:00)
[2017-09-18] MEDS: ISOSORBIDE MONONITRATE 30 MG TABLET PO SCH (09:42)
[2017-09-18] MEDS: ASPIRIN EC 81 MG TABLET PO SCH (09:42)
[2017-09-18] MEDS: PANTOPRAZOLE 40 MG TABLET PO SCH (09:42)
[2017-09-18] MEDS: CARVEDILOL 12.5 MG TABLET PO SCH (09:42)
[2017-09-18] MEDS: DOCUSATE SODIUM 100 MG CAPSULE PO SCH (09:42)
[2017-09-18] MEDS: FUROSEMIDE 40 MG/4 ML VIAL IV SCH (09:43)
[2017-09-18 12:27] VITALS: BP 132/77
== END 2017-09-18 15:33 | disposition home or self-care (01) | DRG 291 ==
LOC: N.ED 17:31 → N.EDINP 19:52 → SUATTDRO 19:52 → N.TELES 09-17 15:15
PROVIDERS: ADMIT Hospitalist; ATTEND Family Medicine

== ENCOUNTER 2018-05-15 13:18 | Inpatient (IN) ==
[2018-05-15 13:42] LABS: Basophils % 0.1 % (0.0-0.8); Eosinophils # 0.2 10*3/uL (0.0-0.87); Eosinophils % 2.5 % (0.00-10.9); Hemoglobin 13.7 GM/DL (14.0-18.0); Immature Granulocytes % 0.4 %; Immature Granulocytes Absolute 0.03 #; Lymphocytes % 13.5 % (21.2-54.2); Mean Corpuscular HGB Conc 29.8 GM/DL (32-36); Mean Corpuscular Hemoglobin 27 PG (27-34); Mean Corpuscular Volume 89.1 FL (87-102); Mean Platelet Volume 10.6 FL (9.6-12.0); Monocytes % 13.7 % (1.7-12.7); Neutrophils # 4.9 10*3/uL (1.4-7.4); Neutrophils % 69.8 % (38.7-73.9); Platelet Count 127 T/CUMM (130-400); Red Blood Count 5.16 MC/CUMM (3.8-5.5); Red Cell Distribution Width 18.6 % (9.3-17.3); White Blood Count 7.1 T/CUMM (4-12)
[2018-05-15 13:51] LABS: INR 1.1; PT Patient Result 11.4 SECS
[2018-05-15 14:10] LABS: Albumin 2.9 G/DL (3.4-5.0); Bilirubin,Total 2.1 MG/DL (0.2-1.0); Calcium 8.5 MG/DL (8.5-10.1); Osmolality,Calculated 283.1 MOS/KG (273-304); Total Protein 6.3 G/DL (6.4-8.3)
[2018-05-15] MEDS ORDERED: SODIUM CHLORIDE 0.9% 250 ML IV STA (15:19)
[2018-05-15] MEDS ORDERED: ALBUTEROL 2.5 MG/3 ML NEB RESP TX PRN (17:07)
[2018-05-15] MEDS ORDERED: ONDANSETRON 4 MG/2 ML VIAL IV PRN (17:07)
[2018-05-15] MEDS ORDERED: ACETAMINOPHEN 325 MG TABLET PO PRN (17:07)
[2018-05-15 18:54] LABS: Apearance,Urine CLOUDY (Clear); Bacteria,Urine Few /HPF (Few); Bilirubin,Urine Negative (Negative); Blood, Urine Negative (Negative); Glucose,Urine (UA) Negative (Negative); Ketones,Urine 5 mg/dL (Negative); Mucus,Urine Moderate /LPF (Occasional); Nitrite,Urine Negative (Negative); Protein,Urine >=500 MG/DL; RBC,Urine 3 /HPF (0-4); Squamous Epithelial Cell,Urine Occasional /HPF (0-10); Urine Color Amber (Yellow); WBC,Urine 57 /HPF (0-6)
[2018-05-15] MEDS ORDERED: FUROSEMIDE 20 MG TABLET PO PRN (19:15)
[2018-05-15] MEDS: ROSUVASTATIN 20 MG TABLET PO SCH (20:36)
[2018-05-15] MEDS: SACUBITRIL/VALSARTAN 49-51 MG TABLET PO SCH (20:36)
[2018-05-15] MEDS: ENOXAPARIN 40 MG/0.4 ML SYRINGE SUBCUT SCH (20:36)
[2018-05-15] MEDS ORDERED: CARVEDILOL 25 MG TABLET PO SCH (21:00)
[2018-05-16 00:22] LABS: ABG Base Excess 3.8 MMOL/L (-2.5-2.5); ABG HCO3 27.5 MMOL/L (20-26); ABG Oxygen Saturation 68.3 % (95-100); ABG PCO2 38.7 MM HG (35-48); ABG TCO2 28.7 MMOL/L (23-27); Allen Test Positive; Pt O2 Delivery Device Other
[2018-05-16 00:23] LABS: ABG PO2 40.1 MM HG (80-95)
[2018-05-16 03:46] LABS: Albumin 2.6 G/DL (3.4-5.0); Bilirubin,Total 1.9 MG/DL (0.2-1.0); Calcium 8.6 MG/DL (8.5-10.1); Potassium 3.8 MMOL/L (3.5-5.1); Total Protein 5.8 G/DL (6.4-8.3)
[2018-05-16 03:53] LABS: Basophils % 0.3 % (0.0-0.8); Eosinophils # 0.2 10*3/uL (0.0-0.87); Eosinophils % 3.1 % (0.00-10.9); Hematocrit 43.5 VOL% (42.0-52.0); Immature Granulocytes % 0.4 %; Immature Granulocytes Absolute 0.03 #; Lymphocytes # 1.2 10*3/uL (1.4-4.0); Lymphocytes % 16.5 % (21.2-54.2); Mean Corpuscular HGB Conc 29.9 GM/DL (32-36); Mean Corpuscular Hemoglobin 27 PG (27-34); Mean Corpuscular Volume 90.6 FL (87-102); Mean Platelet Volume 10.2 FL (9.6-12.0); Monocytes % 13.7 % (1.7-12.7); Neutrophils # 4.7 10*3/uL (1.4-7.4); Platelet Count 121 T/CUMM (130-400); White Blood Count 7.2 T/CUMM (4-12)
[2018-05-16] MEDS: SACUBITRIL/VALSARTAN 49-51 MG TABLET PO SCH ×2 (08:28→20:00)
[2018-05-16] MEDS: PANTOPRAZOLE 40 MG TABLET PO SCH (08:29)
[2018-05-16] MEDS: ASPIRIN EC 81 MG TABLET PO SCH (08:29)
[2018-05-16] MEDS: DIGOXIN 0.25 MG TABLET PO SCH (08:29)
[2018-05-16] MEDS: CARVEDILOL 12.5 MG TABLET PO SCH ×3 (08:32→20:00)
[2018-05-16] MEDS: LEVOFLOXACIN INJ 500 MG in PREMIX 1 EACH IV SCH (16:25)
[2018-05-16] MEDS: methylPREDNISolone SOD SUC 40 MG/1 ML VIAL IV SCH (16:26)
[2018-05-16] MEDS: ROSUVASTATIN 20 MG TABLET PO SCH (20:00)
[2018-05-16] MEDS: ENOXAPARIN 40 MG/0.4 ML SYRINGE SUBCUT SCH (20:00)
[2018-05-17 04:14] LABS: Eosinophils % 0.2 % (0.00-10.9); Hemoglobin 13.2 GM/DL (14.0-18.0); Immature Granulocytes % 0.2 %; Immature Granulocytes Absolute 0.01 #; Lymphocytes # 0.7 10*3/uL (1.4-4.0); Lymphocytes % 17.4 % (21.2-54.2); Mean Corpuscular HGB Conc 29.5 GM/DL (32-36); Mean Corpuscular Hemoglobin 27 PG (27-34); Mean Corpuscular Volume 89.8 FL (87-102); Mean Platelet Volume 9.9 FL (9.6-12.0); Monocytes # 0.1 10*3/uL (0.11-0.8); Monocytes % 1.9 % (1.7-12.7); Neutrophils # 3.4 10*3/uL (1.4-7.4); Neutrophils % 80.3 % (38.7-73.9); Platelet Count 135 T/CUMM (130-400); Red Blood Count 4.98 MC/CUMM (3.8-5.5); Red Cell Distribution Width 17.9 % (9.3-17.3); White Blood Count 4.3 T/CUMM (4-12)
[2018-05-17] MEDS: methylPREDNISolone SOD SUC 40 MG/1 ML VIAL IV SCH ×2 (04:15→17:21)
[2018-05-17 04:23] LABS: Hematocrit 44.7 VOL% (42.0-52.0)
[2018-05-17 04:37] LABS: Calcium 8.3 MG/DL (8.5-10.1); Osmolality,Calculated 284.1 MOS/KG (273-304); Potassium 4.9 MMOL/L (3.5-5.1)
[2018-05-17] MEDS: PANTOPRAZOLE 40 MG TABLET PO SCH (09:08)
[2018-05-17] MEDS: SACUBITRIL/VALSARTAN 49-51 MG TABLET PO SCH ×2 (09:08→20:06)
[2018-05-17] MEDS: CARVEDILOL 12.5 MG TABLET PO SCH (09:09)
[2018-05-17] MEDS: ASPIRIN EC 81 MG TABLET PO SCH (09:09)
[2018-05-17] MEDS: DIGOXIN 0.25 MG TABLET PO SCH (13:43)
[2018-05-17] MEDS: CARVEDILOL 6.25 MG TABLET PO SCH (15:19)
[2018-05-17] MEDS: LEVOFLOXACIN INJ 500 MG in PREMIX 1 EACH IV SCH (17:21)
[2018-05-17] MEDS: ROSUVASTATIN 20 MG TABLET PO SCH (20:06)
[2018-05-17] MEDS: ENOXAPARIN 40 MG/0.4 ML SYRINGE SUBCUT SCH (20:06)
[2018-05-18] MEDS: methylPREDNISolone SOD SUC 40 MG/1 ML VIAL IV SCH ×2 (03:54→17:15)
[2018-05-18 04:46] LABS: Calcium 8.6 MG/DL (8.5-10.1); Osmolality,Calculated 285.1 MOS/KG (273-304); Potassium 4.6 MMOL/L (3.5-5.1)
[2018-05-18] MEDS: DIGOXIN 0.25 MG TABLET PO SCH (09:09)
[2018-05-18] MEDS: SACUBITRIL/VALSARTAN 49-51 MG TABLET PO SCH ×2 (09:10→21:01)
[2018-05-18] MEDS: PANTOPRAZOLE 40 MG TABLET PO SCH (09:10)
[2018-05-18] MEDS: ASPIRIN EC 81 MG TABLET PO SCH (09:10)
[2018-05-18] MEDS: LEVOFLOXACIN INJ 500 MG in PREMIX 1 EACH IV SCH (17:00)
[2018-05-18] MEDS: ENOXAPARIN 40 MG/0.4 ML SYRINGE SUBCUT SCH (21:01)
[2018-05-18] MEDS: ROSUVASTATIN 20 MG TABLET PO SCH (21:01)
[2018-05-19 04:03] LABS: Basophils % 0.1 % (0.0-0.8); Hematocrit 41.5 VOL% (42.0-52.0); Hemoglobin 12.7 GM/DL (14.0-18.0); Immature Granulocytes % 0.4 %; Immature Granulocytes Absolute 0.05 #; Lymphocytes # 0.9 10*3/uL (1.4-4.0); Lymphocytes % 7.7 % (21.2-54.2); Mean Corpuscular HGB Conc 30.6 GM/DL (32-36); Mean Corpuscular Hemoglobin 27 PG (27-34); Mean Corpuscular Volume 87.7 FL (87-102); Mean Platelet Volume 9.7 FL (9.6-12.0); Monocytes # 0.6 10*3/uL (0.11-0.8); Monocytes % 5.1 % (1.7-12.7); Neutrophils # 10.3 10*3/uL (1.4-7.4); Neutrophils % 86.7 % (38.7-73.9); Platelet Count 178 T/CUMM (130-400); Red Blood Count 4.73 MC/CUMM (3.8-5.5); Red Cell Distribution Width 17.5 % (9.3-17.3); White Blood Count 11.9 T/CUMM (4-12)
[2018-05-19 04:28] LABS: Calcium 8.2 MG/DL (8.5-10.1); Osmolality,Calculated 284.3 MOS/KG (273-304); Potassium 4.8 MMOL/L (3.5-5.1)
[2018-05-19] MEDS: methylPREDNISolone SOD SUC 40 MG/1 ML VIAL IV SCH ×2 (06:16→17:40)
[2018-05-19] MEDS ORDERED: MIDAZOLAM 2 MG/2 ML VIAL ONE (09:25)
[2018-05-19] MEDS ORDERED: methylPREDNISolone SOD SUC 125 MG/2 ML VIAL ONE (09:25)
[2018-05-19] MEDS ORDERED: PROPOFOL 200 MG/20 ML VIAL IV ONE (09:25)
[2018-05-19] MEDS ORDERED: ETOMIDATE 40 MG/20 ML VIAL IV ONE (09:26)
[2018-05-19] MEDS ORDERED: ALBUTEROL INHALER 8 GM INH ONE (09:26)
[2018-05-19] MEDS ORDERED: ceFAZolin 1,000 MG VIAL IRRIG ONE (09:30)
[2018-05-19] MEDS ORDERED: FAMOTIDINE 20 MG/2 ML VIAL IV ONE (10:03)
[2018-05-19] MEDS ORDERED: HEPARIN/NACL 0.9% 2 UNITS/ML 1,000 ML IV ONE (10:06)
[2018-05-19] MEDS ORDERED: LIDOCAINE 1% 20 ML VIAL ONE (10:06)
[2018-05-19] MEDS ORDERED: HEPARIN/NACL 0.9% 2 UNITS/ML 500 ML IV ONE (10:21)
[2018-05-19] MEDS: SACUBITRIL/VALSARTAN 49-51 MG TABLET PO SCH ×2 (12:23→21:53)
[2018-05-19] MEDS: PANTOPRAZOLE 40 MG TABLET PO SCH (12:23)
[2018-05-19] MEDS: ASPIRIN EC 81 MG TABLET PO SCH (12:23)
[2018-05-19] MEDS: DIGOXIN 0.25 MG TABLET PO SCH (12:23)
[2018-05-19] MEDS ORDERED: fentaNYL 100 MCG/2 ML VIAL ONE (14:29)
[2018-05-19] MEDS ORDERED: KETAMINE 500 MG/10 ML VIAL ONE (14:54)
[2018-05-19] MEDS: LEVOFLOXACIN INJ 500 MG in PREMIX 1 EACH IV SCH (16:57)
[2018-05-19] MEDS: ROSUVASTATIN 20 MG TABLET PO SCH (21:54)
[2018-05-19] MEDS: ENOXAPARIN 40 MG/0.4 ML SYRINGE SUBCUT SCH (22:11)
[2018-05-20] MEDS: methylPREDNISolone SOD SUC 40 MG/1 ML VIAL IV SCH (04:35)
[2018-05-20 04:47] LABS: Basophils % 0.1 % (0.0-0.8); Hematocrit 40.1 VOL% (42.0-52.0); Hemoglobin 12.3 GM/DL (14.0-18.0); Immature Granulocytes % 0.7 %; Immature Granulocytes Absolute 0.08 #; Lymphocytes # 0.9 10*3/uL (1.4-4.0); Lymphocytes % 8.2 % (21.2-54.2); Mean Corpuscular HGB Conc 30.7 GM/DL (32-36); Mean Corpuscular Hemoglobin 27 PG (27-34); Mean Corpuscular Volume 87.6 FL (87-102); Mean Platelet Volume 10.1 FL (9.6-12.0); Monocytes # 0.7 10*3/uL (0.11-0.8); Monocytes % 5.9 % (1.7-12.7); Neutrophils # 9.7 10*3/uL (1.4-7.4); Neutrophils % 85.1 % (38.7-73.9); Platelet Count 174 T/CUMM (130-400); Red Blood Count 4.58 MC/CUMM (3.8-5.5); Red Cell Distribution Width 17.7 % (9.3-17.3); White Blood Count 11.4 T/CUMM (4-12)
[2018-05-20 04:50] LABS: Calcium 8.1 MG/DL (8.5-10.1); Osmolality,Calculated 282.3 MOS/KG (273-304); Potassium 4.5 MMOL/L (3.5-5.1)
[2018-05-20] MEDS ORDERED: predniSONE 20 MG TABLET PO SCH (09:00)
[2018-05-20] MEDS: ASPIRIN EC 81 MG TABLET PO SCH (09:52)
[2018-05-20] MEDS: SACUBITRIL/VALSARTAN 49-51 MG TABLET PO SCH (09:52)
[2018-05-20] MEDS: PANTOPRAZOLE 40 MG TABLET PO SCH (09:53)
[2018-05-20] MEDS: DIGOXIN 0.25 MG TABLET PO SCH (09:53)
[2018-05-20] MEDS: CARVEDILOL 6.25 MG TABLET PO SCH (09:53)
[2018-05-20 12:08] VITALS: BP 122/80
== END 2018-05-20 16:47 | disposition home or self-care (01) | DRG 228 ==
LOC: N.ED 13:18 → N.EDINP 17:07 → SUATTDRO 17:07 → N.CC 18:18 → N.TELEN 05-19 17:29
PROVIDERS: ADMIT Internal Medicine; ATTEND Internal Medicine
PROC: CLMICRA (2018-05-19 09:15)

== ENCOUNTER 2018-06-01 14:40 | Observation (INO) ==
[2018-06-01 15:30] LABS: Basophils # 0.1 10*3/uL (0.0-0.2); Basophils % 0.4 % (0.0-0.8); Eosinophils # 0.3 10*3/uL (0.0-0.87); Eosinophils % 2.5 % (0.00-10.9); Hematocrit 46.1 VOL% (42.0-52.0); Hemoglobin 13.5 GM/DL (14.0-18.0); Immature Granulocytes % 0.8 %; Lymphocytes # 1.9 10*3/uL (1.4-4.0); Lymphocytes % 14.9 % (21.2-54.2); Mean Corpuscular HGB Conc 29.3 GM/DL (32-36); Mean Corpuscular Hemoglobin 27 PG (27-34); Mean Corpuscular Volume 91.7 FL (87-102); Mean Platelet Volume 9.4 FL (9.6-12.0); Monocytes # 1.5 10*3/uL (0.11-0.8); Monocytes % 11.5 % (1.7-12.7); NRBC # 0.02 10*3/uL; Neutrophils # 8.8 10*3/uL (1.4-7.4); Neutrophils % 69.9 % (38.7-73.9); Platelet Count 175 T/CUMM (130-400); Red Blood Count 5.03 MC/CUMM (3.8-5.5); Red Cell Distribution Width 17.8 % (9.3-17.3); White Blood Count 12.7 T/CUMM (4-12)
[2018-06-01 15:35] LABS: INR 1.1; Partial Thromboplastin Time 24.6 SECS (0-40)
[2018-06-01 15:52] LABS: Albumin 3.3 G/DL (3.4-5.0); Bilirubin,Total 1.6 MG/DL (0.2-1.0); Calcium 9.5 MG/DL (8.5-10.1); Potassium 3.9 MMOL/L (3.5-5.1); Total Protein 6.9 G/DL (6.4-8.3)
[2018-06-01 16:00] LABS: ABG HCO3 28.4 MMOL/L (20-26); ABG Oxygen Saturation 33.2 % (95-100); ABG PCO2 52.8 MM HG (35-48); ABG PH 7.396 (7.35-7.45); Allen Test Positive
[2018-06-01 16:04] LABS: ABG PO2 24.2 MM HG (80-95)
[2018-06-01] MEDS ORDERED: methylPREDNISolone SOD SUC 125 MG/2 ML VIAL IV STA (16:34)
[2018-06-01] MEDS ORDERED: LEVOFLOXACIN INJ 500 MG in PREMIX 1 EACH IV STA (16:35)
[2018-06-01 16:45] LABS: ABG Base Excess 5.3 MMOL/L (-2.5-2.5); ABG HCO3 29.3 MMOL/L (20-26); ABG Oxygen Saturation 99.3 % (95-100); ABG PCO2 51.6 MM HG (35-48); ABG PH 7.394 (7.35-7.45); ABG TCO2 27.9 MMOL/L (23-27); Allen Test Positive; Pt O2 Delivery Device Other
[2018-06-01] MEDS ORDERED: ACETAMINOPHEN 325 MG TABLET PO PRN (17:31)
[2018-06-01] MEDS ORDERED: ALBUTEROL/IPRATROPIUM 3 ML NEB RESP TX PRN (17:34)
[2018-06-01] MEDS ORDERED: SODIUM CHLOR 0.45% KCL 20 MEQ 20 MEQ/1,000 ML BAG IV SCH (18:00)
[2018-06-01] MEDS: ALBUTEROL/IPRATROPIUM 3 ML NEB RESP TX SCH (18:53)
[2018-06-01] MEDS: ROSUVASTATIN 20 MG TABLET PO SCH (20:48)
[2018-06-01] MEDS: SACUBITRIL/VALSARTAN 49-51 MG TABLET PO SCH (20:49)
[2018-06-01] MEDS: CARVEDILOL 6.25 MG TABLET PO SCH (20:49)
[2018-06-01] MEDS ORDERED: ENOXAPARIN 40 MG/0.4 ML SYRINGE SUBCUT SCH (21:00)
[2018-06-01] MEDS ORDERED: Tiotropium Br/Olodaterol Hcl [Stiolto Respimat Inhal Spray] INH SCH (21:00)
[2018-06-01] MEDS: methylPREDNISolone SOD SUC 40 MG/1 ML VIAL IV SCH (22:41)
[2018-06-01] MEDS: LEVOFLOXACIN 500 MG TABLET PO SCH (23:41)
[2018-06-02] MEDS: ALBUTEROL/IPRATROPIUM 3 ML NEB RESP TX SCH ×4 (00:54→19:14)
[2018-06-02 02:49] LABS: Basophils % 0.1 % (0.0-0.8); Eosinophils % 0.1 % (0.00-10.9); Hematocrit 39.7 VOL% (42.0-52.0); Hemoglobin 11.5 GM/DL (14.0-18.0); Immature Granulocytes % 0.6 %; Immature Granulocytes Absolute 0.05 #; Lymphocytes # 0.8 10*3/uL (1.4-4.0); Lymphocytes % 9.3 % (21.2-54.2); Mean Corpuscular Hemoglobin 26 PG (27-34); Mean Corpuscular Volume 90.8 FL (87-102); Mean Platelet Volume 9.7 FL (9.6-12.0); Monocytes # 0.1 10*3/uL (0.11-0.8); Neutrophils # 7.2 10*3/uL (1.4-7.4); Neutrophils % 88.9 % (38.7-73.9); Platelet Count 151 T/CUMM (130-400); Red Blood Count 4.37 MC/CUMM (3.8-5.5); Red Cell Distribution Width 17.4 % (9.3-17.3); White Blood Count 8.1 T/CUMM (4-12)
[2018-06-02 03:05] LABS: Calcium 8.5 MG/DL (8.5-10.1); Osmolality,Calculated 288.3 MOS/KG (273-304); Potassium 3.9 MMOL/L (3.5-5.1)
[2018-06-02] MEDS: methylPREDNISolone SOD SUC 40 MG/1 ML VIAL IV SCH ×5 (04:36→21:37)
[2018-06-02] MEDS: LEVOFLOXACIN 500 MG TABLET PO SCH (08:54)
[2018-06-02] MEDS: FUROSEMIDE 20 MG TABLET PO SCH (08:54)
[2018-06-02] MEDS: CARVEDILOL 6.25 MG TABLET PO SCH ×2 (08:54→16:40)
[2018-06-02] MEDS: ASPIRIN EC 81 MG TABLET PO SCH (08:54)
[2018-06-02] MEDS: DIGOXIN 0.25 MG TABLET PO SCH (08:55)
[2018-06-02] MEDS: SACUBITRIL/VALSARTAN 49-51 MG TABLET PO SCH ×2 (08:55→20:27)
[2018-06-02] MEDS ORDERED: FUROSEMIDE 40 MG/4 ML VIAL IV ONE (10:34)
[2018-06-02] MEDS: APIXABAN 5 MG TABLET PO SCH ×2 (12:18→20:27)
[2018-06-02] MEDS: ROSUVASTATIN 20 MG TABLET PO SCH (20:27)
[2018-06-02] MEDS ORDERED: APIXABAN 5 MG TABLET PO SCH (21:00)
[2018-06-03] MEDS: ALBUTEROL/IPRATROPIUM 3 ML NEB RESP TX SCH ×2 (00:38→07:29)
[2018-06-03] MEDS: methylPREDNISolone SOD SUC 40 MG/1 ML VIAL IV SCH ×2 (04:24→11:19)
[2018-06-03] MEDS: ASPIRIN EC 81 MG TABLET PO SCH (09:25)
[2018-06-03] MEDS: CARVEDILOL 6.25 MG TABLET PO SCH (09:25)
[2018-06-03] MEDS: FUROSEMIDE 20 MG TABLET PO SCH (09:26)
[2018-06-03] MEDS: DIGOXIN 0.25 MG TABLET PO SCH (09:26)
[2018-06-03] MEDS: LEVOFLOXACIN 500 MG TABLET PO SCH (09:26)
[2018-06-03] MEDS: APIXABAN 5 MG TABLET PO SCH (09:26)
[2018-06-03] MEDS: SACUBITRIL/VALSARTAN 49-51 MG TABLET PO SCH (09:26)
[2018-06-03] MEDS ORDERED: predniSONE 20 MG TABLET PO SCH (12:00)
[2018-06-03 12:55] VITALS: BP 125/83
== END 2018-06-03 13:43 | disposition home or self-care (01) ==
LOC: N.EDINP 14:40 → N.ED 14:40 → N.EDINP 19:05 → N.5E 19:16
PROVIDERS: ADMIT Internal Medicine; ATTEND Internal Medicine

== ENCOUNTER 2018-07-20 01:57 | Inpatient (IN) ==
[2018-07-20] MEDS ORDERED: MORPHINE 4 MG/1 ML VIAL IV STA (02:11)
[2018-07-20] MEDS ORDERED: cefTRIAXone 1,000 MG in SODIUM CHLORIDE 0.9% 100 ML IV STA (02:11)
[2018-07-20] MEDS ORDERED: ONDANSETRON 4 MG/2 ML VIAL IV STA (02:11)
[2018-07-20] MEDS ORDERED: FUROSEMIDE 100 MG/10 ML VIAL IV STA (02:11)
[2018-07-20] MEDS ORDERED: methylPREDNISolone SOD SUC 125 MG/2 ML VIAL IV STA (02:11)
[2018-07-20] MEDS ORDERED: ALBUTEROL 2.5 MG/3 ML NEB RESP TX SCH (02:30)
[2018-07-20 02:32] LABS: ABG Base Excess 6.7 MMOL/L (-2.5-2.5); ABG HCO3 30.4 MMOL/L (20-26); ABG Oxygen Saturation 93.2 % (95-100); ABG PCO2 51.6 MM HG (35-48); ABG PO2 69.9 MM HG (80-95); Allen Test Positive
[2018-07-20 02:34] LABS: Basophils % 0.2 % (0.0-0.8); Eosinophils # 0.9 10*3/uL (0.0-0.87); Eosinophils % 6.1 % (0.00-10.9); Hematocrit 43.7 VOL% (42.0-52.0); Immature Granulocytes % 0.4 %; Immature Granulocytes Absolute 0.05 #; Lymphocytes # 1.6 10*3/uL (1.4-4.0); Lymphocytes % 11.4 % (21.2-54.2); Mean Corpuscular HGB Conc 29.5 GM/DL (32-36); Mean Corpuscular Hemoglobin 27 PG (27-34); Mean Corpuscular Volume 91.4 FL (87-102); Mean Platelet Volume 9.3 FL (9.6-12.0); Monocytes # 1.2 10*3/uL (0.11-0.8); Monocytes % 8.3 % (1.7-12.7); Neutrophils # 10.5 10*3/uL (1.4-7.4); Neutrophils % 73.6 % (38.7-73.9); Platelet Count 239 T/CUMM (130-400); Red Blood Count 4.78 MC/CUMM (3.8-5.5); Red Cell Distribution Width 16.2 % (9.3-17.3); White Blood Count 14.2 T/CUMM (4-12)
[2018-07-20] MEDS ORDERED: PHENYLEPHRINE DRIP 40 MG/250 ML PREMIX IV ONE (02:36)
[2018-07-20] MEDS: PHENYLEPHRINE DRIP 40 MG/250 ML PREMIX IV PRN ×2 (02:45→14:47)
[2018-07-20 02:48] LABS: INR 1.2; PT Patient Result 12.7 SECS
[2018-07-20 02:52] LABS: Alanine Aminotransferase 13 U/L (16-61); Albumin 2.8 G/DL (3.4-5.0); Alkaline Phosphatase 82 U/L (45-117); Aspartate Amino Transferase 26 U/L (0-37); Blood Urea Nitrogen 7 MG/DL (7-18); Glucose 98 MG/DL (74-106); Potassium 3.5 MMOL/L (3.5-5.1); Sodium 143 MMOL/L (136-145); Total Protein 6.9 G/DL (6.4-8.3)
[2018-07-20 02:55] LABS: Lactic Acid 3.7 MMOL/L (0.4-2.0)
[2018-07-20] MEDS ORDERED: cefTRIAXone 1,000 MG in SYRINGE 1 EACH IV STA (03:24)
[2018-07-20] MEDS ORDERED: ONDANSETRON 4 MG/2 ML VIAL IV PRN (03:26)
[2018-07-20] MEDS ORDERED: MORPHINE 4 MG/1 ML VIAL IV PRN (03:26)
[2018-07-20] MEDS ORDERED: SODIUM CHLORIDE 0.9% 1,000 ML IV SCH (03:30)
[2018-07-20] MEDS ORDERED: LACTATED RINGERS 250 ML IV ONE (03:45)
[2018-07-20] MEDS ORDERED: PIPERACILLIN/TAZOBACTAM 3,375 MG VIAL IV ONE (03:51)
[2018-07-20] MEDS ORDERED: SODIUM CHLORIDE 0.9% 100 ML IV ONE (03:52)
[2018-07-20] MEDS: PIPERACILLIN/TAZOBACTAM 3,375 MG in SODIUM CHLORIDE 0.9% 100 ML IV SCH ×3 (03:55→19:50)
[2018-07-20] MEDS: methylPREDNISolone SOD SUC 40 MG/1 ML VIAL IV SCH ×3 (04:33→20:48)
[2018-07-20] MEDS ORDERED: VANCOMYCIN INJ 1,000 MG in SODIUM CHLORIDE 0.9% 250 ML IV SCH (05:00)
[2018-07-20 05:35] LABS: Albumin 2.7 G/DL (3.4-5.0); Bilirubin,Total 1.2 MG/DL (0.2-1.0); Calcium 8.6 MG/DL (8.5-10.1); Potassium 3.3 MMOL/L (3.5-5.1); Total Protein 5.8 G/DL (6.4-8.3)
[2018-07-20 05:47] LABS: Bacteria,Urine Occasional /HPF (Few); Hyaline Casts,Urine 6 /LPF (0-3); Mucus,Urine Occasional /LPF (Occasional); RBC,Urine 1 /HPF (0-4); Squamous Epithelial Cell,Urine Occasional /HPF (0-10); WBC,Urine 2 /HPF (0-6)
[2018-07-20 05:51] LABS: Apearance,Urine Clear (Clear); Protein,Urine 30 MG/DL; Urine Color Yellow (Yellow); Urine Specific Gravity 1.005 (1.001-1.035)
[2018-07-20 05:52] LABS: Bilirubin,Urine Negative (Negative); Blood, Urine Negative (Negative); Glucose,Urine (UA) Negative (Negative); Ketones,Urine Negative (Negative); Nitrite,Urine Negative (Negative)
[2018-07-20] MEDS ORDERED: diphenhydrAMINE 50 MG/1 ML VIAL IV PRN (06:02)
[2018-07-20 07:40] LABS: Basophils % 0.2 % (0.0-0.8); Eosinophils # 0.1 10*3/uL (0.0-0.87); Eosinophils % 0.9 % (0.00-10.9); Immature Granulocytes % 0.9 %; Immature Granulocytes Absolute 0.12 #; Lymphocytes # 1.1 10*3/uL (1.4-4.0); Mean Corpuscular HGB Conc 29.7 GM/DL (32-36); Mean Corpuscular Hemoglobin 27 PG (27-34); Mean Corpuscular Volume 91.1 FL (87-102); Mean Platelet Volume 9.2 FL (9.6-12.0); Monocytes # 0.6 10*3/uL (0.11-0.8); Monocytes % 4.5 % (1.7-12.7); Neutrophils # 12.1 10*3/uL (1.4-7.4); Neutrophils % 85.5 % (38.7-73.9); Platelet Count 194 T/CUMM (130-400); Red Blood Count 4.28 MC/CUMM (3.8-5.5); Red Cell Distribution Width 16.3 % (9.3-17.3); White Blood Count 14.1 T/CUMM (4-12)
[2018-07-20 07:43] LABS: Hemoglobin 11.6 GM/DL (14.0-18.0)
[2018-07-20] MEDS: CARVEDILOL 6.25 MG TABLET PO SCH ×2 (08:54→20:47)
[2018-07-20] MEDS: PANTOPRAZOLE 40 MG TABLET PO SCH (08:54)
[2018-07-20] MEDS: SACUBITRIL/VALSARTAN 49-51 MG TABLET PO SCH ×2 (08:54→20:47)
[2018-07-20] MEDS ORDERED: NON-FORMULARY MEDICATION (Tiotropium Br/Olodaterol Hcl [Stiolto Respimat Inhal Spray] 2 PU INH SCH (09:00)
[2018-07-20] MEDS ORDERED: ENOXAPARIN 40 MG/0.4 ML SYRINGE SUBCUT SCH (09:00)
[2018-07-20] MEDS ORDERED: FUROSEMIDE 40 MG/4 ML VIAL IV SCH (09:00)
[2018-07-20] MEDS: ASPIRIN EC 81 MG TABLET PO SCH (09:09)
[2018-07-20] MEDS: VANCOMYCIN INJ 1,250 MG in SODIUM CHLORIDE 0.9% 250 ML IV SCH (14:45)
[2018-07-20] MEDS: APIXABAN 2.5 MG TABLET PO SCH (20:48)
[2018-07-20] MEDS: ROSUVASTATIN 20 MG TABLET PO SCH (20:50)
[2018-07-21] MEDS: VANCOMYCIN INJ 1,250 MG in SODIUM CHLORIDE 0.9% 250 ML IV SCH ×2 (01:17→14:50)
[2018-07-21] MEDS: PIPERACILLIN/TAZOBACTAM 3,375 MG in SODIUM CHLORIDE 0.9% 100 ML IV SCH ×3 (02:53→20:30)
[2018-07-21] MEDS: methylPREDNISolone SOD SUC 40 MG/1 ML VIAL IV SCH ×3 (02:59→20:40)
[2018-07-21 04:47] LABS: ABG Base Excess 8.1 MMOL/L (-2.5-2.5); ABG HCO3 31.8 MMOL/L (20-26); ABG Oxygen Saturation 95.7 % (95-100); ABG PCO2 59.8 MM HG (35-48); ABG PH 7.377 (7.35-7.45); ABG PO2 82.3 MM HG (80-95); ABG TCO2 31.9 MMOL/L (23-27); Allen Test Positive; Pt O2 Delivery Device Other
[2018-07-21 04:49] LABS: Calcium 7.8 MG/DL (8.5-10.1); Osmolality,Calculated 284.1 MOS/KG (273-304); Potassium 3.3 MMOL/L (3.5-5.1)
[2018-07-21] MEDS: SACUBITRIL/VALSARTAN 49-51 MG TABLET PO SCH ×2 (09:16→20:41)
[2018-07-21] MEDS: PANTOPRAZOLE 40 MG TABLET PO SCH (09:17)
[2018-07-21] MEDS: ASPIRIN EC 81 MG TABLET PO SCH (09:17)
[2018-07-21] MEDS: CARVEDILOL 6.25 MG TABLET PO SCH ×2 (09:17→22:27)
[2018-07-21] MEDS: APIXABAN 2.5 MG TABLET PO SCH ×2 (09:17→20:41)
[2018-07-21] MEDS: DIGOXIN 0.25 MG TABLET PO SCH (09:23)
[2018-07-21] MEDS ORDERED: POTASSIUM CHLORIDE 20 MEQ TABLET PO ONE (10:19)
[2018-07-21 20:17] LABS: Allen Test Positive; Pt O2 Delivery Device Other
[2018-07-21 20:18] LABS: ABG HCO3 30.1 MMOL/L (20-26); ABG Oxygen Saturation 64.4 % (95-100); ABG PCO2 56.3 MM HG (35-48); ABG PH 7.385 (7.35-7.45); ABG TCO2 30.4 MMOL/L (23-27)
[2018-07-21 20:20] LABS: ABG PO2 36.7 MM HG (80-95)
[2018-07-21] MEDS: ROSUVASTATIN 20 MG TABLET PO SCH (20:40)
[2018-07-21] MEDS ORDERED: FUROSEMIDE 40 MG/4 ML VIAL IV ONE (22:41)
[2018-07-22] MEDS: VANCOMYCIN INJ 1,250 MG in SODIUM CHLORIDE 0.9% 250 ML IV SCH ×2 (02:00→15:57)
[2018-07-22] MEDS: PIPERACILLIN/TAZOBACTAM 3,375 MG in SODIUM CHLORIDE 0.9% 100 ML IV SCH ×3 (03:30→21:36)
[2018-07-22] MEDS: methylPREDNISolone SOD SUC 40 MG/1 ML VIAL IV SCH ×3 (05:00→21:36)
[2018-07-22 05:04] LABS: ABG Base Excess 10.8 MMOL/L (-2.5-2.5); ABG HCO3 37.3 MMOL/L (20-26); ABG Oxygen Saturation 90.7 % (95-100); ABG PCO2 59.3 MM HG (35-48); ABG PH 7.416 (7.35-7.45); ABG PO2 63.2 MM HG (80-95); ABG TCO2 39.1 MMOL/L (23-27); Pt O2 Delivery Device Other
[2018-07-22 05:40] LABS: Calcium 7.8 MG/DL (8.5-10.1); Osmolality,Calculated 285.1 MOS/KG (273-304); Potassium 3.5 MMOL/L (3.5-5.1)
[2018-07-22] MEDS: APIXABAN 2.5 MG TABLET PO SCH ×2 (08:58→21:39)
[2018-07-22] MEDS: PANTOPRAZOLE 40 MG TABLET PO SCH (08:58)
[2018-07-22] MEDS: ASPIRIN EC 81 MG TABLET PO SCH (08:58)
[2018-07-22] MEDS: SACUBITRIL/VALSARTAN 49-51 MG TABLET PO SCH ×2 (08:58→21:37)
[2018-07-22] MEDS: CARVEDILOL 6.25 MG TABLET PO SCH ×2 (08:58→21:40)
[2018-07-22] MEDS: DIGOXIN 0.25 MG TABLET PO SCH (11:40)
[2018-07-22] MEDS ORDERED: ACETAMINOPHEN 325 MG TABLET PO PRN (15:49)
[2018-07-22] MEDS ORDERED: ACETAMINOPHEN 325 MG TABLET ONE (15:52)
[2018-07-22] MEDS: ROSUVASTATIN 20 MG TABLET PO SCH (21:37)
[2018-07-22] MEDS ORDERED: FUROSEMIDE 40 MG/4 ML VIAL IV ONE (22:31)
[2018-07-23] MEDS: VANCOMYCIN INJ 1,250 MG in SODIUM CHLORIDE 0.9% 250 ML IV SCH ×2 (02:25→16:00)
[2018-07-23 03:44] LABS: ABG Base Excess 9.1 MMOL/L (-2.5-2.5); ABG HCO3 32.8 MMOL/L (20-26); ABG Oxygen Saturation 95.7 % (95-100); ABG PCO2 59.5 MM HG (35-48); ABG PH 7.392 (7.35-7.45); ABG PO2 82.9 MM HG (80-95); ABG TCO2 32.5 MMOL/L (23-27); Allen Test Positive; Pt O2 Delivery Device Other
[2018-07-23] MEDS: PIPERACILLIN/TAZOBACTAM 3,375 MG in SODIUM CHLORIDE 0.9% 100 ML IV SCH ×3 (04:10→20:02)
[2018-07-23] MEDS: methylPREDNISolone SOD SUC 40 MG/1 ML VIAL IV SCH ×3 (04:10→20:03)
[2018-07-23] MEDS: DIGOXIN 0.25 MG TABLET PO SCH (09:29)
[2018-07-23] MEDS: SACUBITRIL/VALSARTAN 49-51 MG TABLET PO SCH ×2 (09:29→20:04)
[2018-07-23] MEDS: CARVEDILOL 6.25 MG TABLET PO SCH ×2 (09:29→20:04)
[2018-07-23] MEDS: PANTOPRAZOLE 40 MG TABLET PO SCH (09:29)
[2018-07-23] MEDS: APIXABAN 2.5 MG TABLET PO SCH ×2 (09:29→20:04)
[2018-07-23] MEDS: ASPIRIN EC 81 MG TABLET PO SCH (09:29)
[2018-07-23] MEDS: ROSUVASTATIN 20 MG TABLET PO SCH (20:06)
[2018-07-24] MEDS: VANCOMYCIN INJ 1,250 MG in SODIUM CHLORIDE 0.9% 250 ML IV SCH ×2 (02:30→15:58)
[2018-07-24] MEDS: methylPREDNISolone SOD SUC 40 MG/1 ML VIAL IV SCH ×3 (03:50→20:10)
[2018-07-24] MEDS: PIPERACILLIN/TAZOBACTAM 3,375 MG in SODIUM CHLORIDE 0.9% 100 ML IV SCH ×3 (03:50→20:09)
[2018-07-24] MEDS: CARVEDILOL 6.25 MG TABLET PO SCH ×2 (10:10→20:16)
[2018-07-24] MEDS: SACUBITRIL/VALSARTAN 49-51 MG TABLET PO SCH ×2 (10:10→20:16)
[2018-07-24] MEDS: PANTOPRAZOLE 40 MG TABLET PO SCH (10:10)
[2018-07-24] MEDS: ASPIRIN EC 81 MG TABLET PO SCH (10:10)
[2018-07-24] MEDS: DIGOXIN 0.25 MG TABLET PO SCH (10:10)
[2018-07-24] MEDS: APIXABAN 2.5 MG TABLET PO SCH ×2 (10:10→20:16)
[2018-07-24] MEDS: ROSUVASTATIN 20 MG TABLET PO SCH (20:16)
[2018-07-25] MEDS: methylPREDNISolone SOD SUC 40 MG/1 ML VIAL IV SCH ×3 (03:49→21:23)
[2018-07-25] MEDS: VANCOMYCIN INJ 1,250 MG in SODIUM CHLORIDE 0.9% 250 ML IV SCH ×2 (03:50→15:41)
[2018-07-25] MEDS: PIPERACILLIN/TAZOBACTAM 3,375 MG in SODIUM CHLORIDE 0.9% 100 ML IV SCH ×3 (03:55→21:20)
[2018-07-25] MEDS: ASPIRIN EC 81 MG TABLET PO SCH (09:57)
[2018-07-25] MEDS: APIXABAN 2.5 MG TABLET PO SCH ×2 (09:57→21:26)
[2018-07-25] MEDS: DIGOXIN 0.25 MG TABLET PO SCH (09:58)
[2018-07-25] MEDS: PANTOPRAZOLE 40 MG TABLET PO SCH (09:58)
[2018-07-25] MEDS: CARVEDILOL 6.25 MG TABLET PO SCH ×2 (09:58→20:52)
[2018-07-25] MEDS: SACUBITRIL/VALSARTAN 49-51 MG TABLET PO SCH ×2 (09:58→21:26)
[2018-07-25] MEDS: ROSUVASTATIN 20 MG TABLET PO SCH (21:26)
[2018-07-26] MEDS: VANCOMYCIN INJ 1,250 MG in SODIUM CHLORIDE 0.9% 250 ML IV SCH ×2 (01:30→18:35)
[2018-07-26 04:24] LABS: Basophils % 0.1 % (0.0-0.8); Hematocrit 41.4 VOL% (42.0-52.0); Hemoglobin 12.2 GM/DL (14.0-18.0); Immature Granulocytes % 0.9 %; Immature Granulocytes Absolute 0.09 #; Lymphocytes # 0.7 10*3/uL (1.4-4.0); Lymphocytes % 7.1 % (21.2-54.2); Mean Corpuscular HGB Conc 29.5 GM/DL (32-36); Mean Corpuscular Hemoglobin 26 PG (27-34); Mean Corpuscular Volume 89.6 FL (87-102); Mean Platelet Volume 9.5 FL (9.6-12.0); Monocytes # 0.8 10*3/uL (0.11-0.8); Monocytes % 7.7 % (1.7-12.7); Neutrophils # 8.8 10*3/uL (1.4-7.4); Neutrophils % 84.2 % (38.7-73.9); Platelet Count 287 T/CUMM (130-400); Red Blood Count 4.62 MC/CUMM (3.8-5.5); Red Cell Distribution Width 15.9 % (9.3-17.3); White Blood Count 10.5 T/CUMM (4-12)
[2018-07-26 04:31] LABS: Calcium 7.2 MG/DL (8.5-10.1); Potassium 3.8 MMOL/L (3.5-5.1)
[2018-07-26 04:46] LABS: ABG Base Excess 7.8 MMOL/L (-2.5-2.5); ABG HCO3 31.3 MMOL/L (20-26); ABG Oxygen Saturation 87.5 % (95-100); ABG PCO2 56.7 MM HG (35-48); ABG PH 7.394 (7.35-7.45); ABG TCO2 30.6 MMOL/L (23-27)
[2018-07-26] MEDS: methylPREDNISolone SOD SUC 40 MG/1 ML VIAL IV SCH ×3 (04:59→21:15)
[2018-07-26] MEDS: PIPERACILLIN/TAZOBACTAM 3,375 MG in SODIUM CHLORIDE 0.9% 100 ML IV SCH ×3 (05:00→21:17)
[2018-07-26] MEDS: ASPIRIN EC 81 MG TABLET PO SCH (09:18)
[2018-07-26] MEDS: DIGOXIN 0.25 MG TABLET PO SCH (09:18)
[2018-07-26] MEDS: CARVEDILOL 6.25 MG TABLET PO SCH ×2 (09:19→21:16)
[2018-07-26] MEDS: PANTOPRAZOLE 40 MG TABLET PO SCH (09:19)
[2018-07-26] MEDS: APIXABAN 2.5 MG TABLET PO SCH ×2 (09:19→21:16)
[2018-07-26] MEDS: SACUBITRIL/VALSARTAN 49-51 MG TABLET PO SCH ×2 (09:19→21:16)
[2018-07-26] MEDS: POTASSIUM CHLORIDE 20 MEQ TABLET PO PRN (21:16)
[2018-07-26] MEDS: ROSUVASTATIN 20 MG TABLET PO SCH (21:16)
[2018-07-27] MEDS: methylPREDNISolone SOD SUC 40 MG/1 ML VIAL IV SCH ×2 (03:15→15:49)
[2018-07-27] MEDS: PIPERACILLIN/TAZOBACTAM 3,375 MG in SODIUM CHLORIDE 0.9% 100 ML IV SCH (04:58)
[2018-07-27] MEDS: VANCOMYCIN INJ 1,250 MG in SODIUM CHLORIDE 0.9% 250 ML IV SCH (09:33)
[2018-07-27] MEDS ORDERED: SODIUM CHLORIDE 0.9% 500 ML IV ONE (09:43)
[2018-07-27] MEDS: DIGOXIN 0.25 MG TABLET PO SCH (10:11)
[2018-07-27] MEDS: PANTOPRAZOLE 40 MG TABLET PO SCH (10:11)
[2018-07-27] MEDS: APIXABAN 2.5 MG TABLET PO SCH ×2 (10:11→20:21)
[2018-07-27] MEDS: CARVEDILOL 6.25 MG TABLET PO SCH ×2 (10:11→20:21)
[2018-07-27] MEDS: SACUBITRIL/VALSARTAN 49-51 MG TABLET PO SCH ×2 (10:11→20:21)
[2018-07-27] MEDS: ASPIRIN EC 81 MG TABLET PO SCH (10:11)
[2018-07-27] MEDS ORDERED: methylPREDNISolone SOD SUC 40 MG/1 ML VIAL IV SCH (15:00)
[2018-07-27] MEDS: CEFUROXIME 250 MG TABLET PO SCH (20:21)
[2018-07-27] MEDS: ROSUVASTATIN 20 MG TABLET PO SCH (20:21)
[2018-07-28] MEDS: methylPREDNISolone SOD SUC 40 MG/1 ML VIAL IV SCH (03:00)
[2018-07-28 03:50] LABS: Basophils % 0.1 % (0.0-0.8); Eosinophils % 0.1 % (0.00-10.9); Hematocrit 38.8 VOL% (42.0-52.0); Hemoglobin 11.7 GM/DL (14.0-18.0); Immature Granulocytes % 1.4 %; Immature Granulocytes Absolute 0.19 #; Lymphocytes # 0.9 10*3/uL (1.4-4.0); Lymphocytes % 7.1 % (21.2-54.2); Mean Corpuscular HGB Conc 30.2 GM/DL (32-36); Mean Corpuscular Hemoglobin 27 PG (27-34); Mean Corpuscular Volume 88.6 FL (87-102); Mean Platelet Volume 9.2 FL (9.6-12.0); Monocytes # 1.4 10*3/uL (0.11-0.8); Monocytes % 10.3 % (1.7-12.7); Neutrophils # 10.8 10*3/uL (1.4-7.4); Platelet Count 250 T/CUMM (130-400); Red Blood Count 4.38 MC/CUMM (3.8-5.5); Red Cell Distribution Width 15.9 % (9.3-17.3); White Blood Count 13.3 T/CUMM (4-12)
[2018-07-28 03:55] LABS: Calcium 7.1 MG/DL (8.5-10.1); Osmolality,Calculated 288.8 MOS/KG (273-304); Potassium 3.6 MMOL/L (3.5-5.1)
[2018-07-28] MEDS ORDERED: DULoxetine 30 MG CAPSULE PO SCH (09:00)
[2018-07-28] MEDS: ASPIRIN EC 81 MG TABLET PO SCH (09:19)
[2018-07-28] MEDS: DIGOXIN 0.25 MG TABLET PO SCH (09:19)
[2018-07-28] MEDS: CEFUROXIME 250 MG TABLET PO SCH ×2 (09:19→21:10)
[2018-07-28] MEDS: SACUBITRIL/VALSARTAN 49-51 MG TABLET PO SCH ×2 (09:19→21:10)
[2018-07-28] MEDS: PANTOPRAZOLE 40 MG TABLET PO SCH (09:19)
[2018-07-28] MEDS: APIXABAN 2.5 MG TABLET PO SCH ×2 (09:19→21:10)
[2018-07-28] MEDS: CARVEDILOL 6.25 MG TABLET PO SCH ×2 (09:20→21:10)
[2018-07-28] MEDS: FUROSEMIDE 20 MG TABLET PO SCH (12:31)
[2018-07-28] MEDS: predniSONE 20 MG TABLET PO SCH (12:31)
[2018-07-28] MEDS: POTASSIUM CHLORIDE 20 MEQ TABLET PO PRN ×2 (12:31→21:10)
[2018-07-28] MEDS: ROSUVASTATIN 20 MG TABLET PO SCH (21:10)
[2018-07-29 05:48] LABS: Basophils % 0.2 % (0.0-0.8); Eosinophils # 0.1 10*3/uL (0.0-0.87); Hematocrit 38.3 VOL% (42.0-52.0); Hemoglobin 11.5 GM/DL (14.0-18.0); Immature Granulocytes % 1.7 %; Immature Granulocytes Absolute 0.22 #; Lymphocytes # 1.5 10*3/uL (1.4-4.0); Lymphocytes % 11.5 % (21.2-54.2); Mean Corpuscular Hemoglobin 27 PG (27-34); Mean Corpuscular Volume 89.1 FL (87-102); Mean Platelet Volume 9.4 FL (9.6-12.0); Monocytes # 1.3 10*3/uL (0.11-0.8); Monocytes % 9.8 % (1.7-12.7); Neutrophils % 75.8 % (38.7-73.9); Platelet Count 235 T/CUMM (130-400); White Blood Count 13.2 T/CUMM (4-12)
[2018-07-29 06:04] LABS: Calcium 7.8 MG/DL (8.5-10.1); Osmolality,Calculated 292.4 MOS/KG (273-304); Potassium 3.9 MMOL/L (3.5-5.1)
[2018-07-29] MEDS: APIXABAN 2.5 MG TABLET PO SCH ×2 (08:38→21:03)
[2018-07-29] MEDS: CARVEDILOL 6.25 MG TABLET PO SCH ×2 (08:38→21:03)
[2018-07-29] MEDS: SACUBITRIL/VALSARTAN 49-51 MG TABLET PO SCH ×2 (08:39→21:01)
[2018-07-29] MEDS: FUROSEMIDE 20 MG TABLET PO SCH (08:39)
[2018-07-29] MEDS: ASPIRIN EC 81 MG TABLET PO SCH (08:39)
[2018-07-29] MEDS: predniSONE 20 MG TABLET PO SCH (08:39)
[2018-07-29] MEDS: PANTOPRAZOLE 40 MG TABLET PO SCH (08:39)
[2018-07-29] MEDS: DIGOXIN 0.25 MG TABLET PO SCH (08:39)
[2018-07-29] MEDS: CEFUROXIME 250 MG TABLET PO SCH ×2 (08:39→21:03)
[2018-07-29] MEDS: POTASSIUM CHLORIDE 20 MEQ TABLET PO PRN (21:02)
[2018-07-29] MEDS: ROSUVASTATIN 20 MG TABLET PO SCH (21:09)
[2018-07-30] MEDS: DIGOXIN 0.25 MG TABLET PO SCH (09:34)
[2018-07-30] MEDS: CEFUROXIME 250 MG TABLET PO SCH ×2 (09:34→21:09)
[2018-07-30] MEDS: APIXABAN 2.5 MG TABLET PO SCH ×2 (09:35→21:11)
[2018-07-30] MEDS: FUROSEMIDE 20 MG TABLET PO SCH (09:35)
[2018-07-30] MEDS: CARVEDILOL 6.25 MG TABLET PO SCH ×2 (09:35→21:09)
[2018-07-30] MEDS: predniSONE 20 MG TABLET PO SCH (09:35)
[2018-07-30] MEDS: PANTOPRAZOLE 40 MG TABLET PO SCH (09:35)
[2018-07-30] MEDS: ASPIRIN EC 81 MG TABLET PO SCH (09:35)
[2018-07-30] MEDS: SACUBITRIL/VALSARTAN 49-51 MG TABLET PO SCH ×2 (09:35→21:08)
[2018-07-30] MEDS: ROSUVASTATIN 20 MG TABLET PO SCH (21:09)
[2018-07-31 06:00] LABS: Basophils % 0.1 % (0.0-0.8); Eosinophils # 0.3 10*3/uL (0.0-0.87); Eosinophils % 2.4 % (0.00-10.9); Hematocrit 34.8 VOL% (42.0-52.0); Hemoglobin 10.3 GM/DL (14.0-18.0); Immature Granulocytes Absolute 0.13 #; Lymphocytes # 1.9 10*3/uL (1.4-4.0); Lymphocytes % 14.7 % (21.2-54.2); Mean Corpuscular HGB Conc 29.6 GM/DL (32-36); Mean Corpuscular Hemoglobin 27 PG (27-34); Mean Corpuscular Volume 89.5 FL (87-102); Mean Platelet Volume 9.8 FL (9.6-12.0); Monocytes % 7.5 % (1.7-12.7); Neutrophils # 9.5 10*3/uL (1.4-7.4); Neutrophils % 74.3 % (38.7-73.9); Platelet Count 204 T/CUMM (130-400); Red Blood Count 3.89 MC/CUMM (3.8-5.5); Red Cell Distribution Width 16.5 % (9.3-17.3); White Blood Count 12.8 T/CUMM (4-12)
[2018-07-31 06:36] LABS: Calcium 7.8 MG/DL (8.5-10.1); Osmolality,Calculated 287.7 MOS/KG (273-304); Potassium 3.6 MMOL/L (3.5-5.1)
[2018-07-31] MEDS: ASPIRIN EC 81 MG TABLET PO SCH (09:03)
[2018-07-31] MEDS: CEFUROXIME 250 MG TABLET PO SCH (09:03)
[2018-07-31] MEDS: SACUBITRIL/VALSARTAN 49-51 MG TABLET PO SCH (09:04)
[2018-07-31] MEDS: CARVEDILOL 6.25 MG TABLET PO SCH (09:04)
[2018-07-31] MEDS: predniSONE 20 MG TABLET PO SCH (09:04)
[2018-07-31] MEDS: APIXABAN 2.5 MG TABLET PO SCH (09:04)
[2018-07-31] MEDS: FUROSEMIDE 20 MG TABLET PO SCH (09:04)
[2018-07-31] MEDS: PANTOPRAZOLE 40 MG TABLET PO SCH (09:08)
[2018-07-31] MEDS: DIGOXIN 0.25 MG TABLET PO SCH (09:08)
[2018-07-31 16:40] VITALS: BP 112/79
== END 2018-07-31 17:47 | disposition home or self-care (01) | DRG 196 ==
LOC: N.ED 01:57 → N.EDINP 03:26 → SUATTDRO 03:26 → N.CC 04:17 → N.5E 07-29 14:26
PROVIDERS: ADMIT Internal Medicine Geriatric Medicine; ATTEND Internal Medicine

== ENCOUNTER 2018-08-25 21:50 | Inpatient (IN) ==
[2018-08-25] MEDS ORDERED: ONDANSETRON 4 MG/2 ML VIAL IV STA (22:32)
[2018-08-25] MEDS ORDERED: METOCLOPRAMIDE 10 MG/2 ML VIAL IV STA (22:32)
[2018-08-25] MEDS ORDERED: methylPREDNISolone SOD SUC 125 MG/2 ML VIAL IV STA (22:32)
[2018-08-25 22:50] LABS: Basophils % 0.3 % (0.0-0.8); Eosinophils # 0.2 10*3/uL (0.0-0.87); Eosinophils % 2.3 % (0.00-10.9); Hematocrit 41.8 VOL% (42.0-52.0); Immature Granulocytes % 0.3 %; Immature Granulocytes Absolute 0.03 #; Lymphocytes # 1.3 10*3/uL (1.4-4.0); Lymphocytes % 12.6 % (21.2-54.2); Mean Corpuscular HGB Conc 28.2 GM/DL (32-36); Mean Corpuscular Hemoglobin 25 PG (27-34); Mean Corpuscular Volume 88.9 FL (87-102); Neutrophils # 7.6 10*3/uL (1.4-7.4); Neutrophils % 74.5 % (38.7-73.9); Platelet Count 229 T/CUMM (130-400); White Blood Count 10.2 T/CUMM (4-12)
[2018-08-25 22:55] LABS: INR 1.1; PT Patient Result 12.2 SECS; Partial Thromboplastin Time 29.1 SECS (0-40)
[2018-08-25] MEDS ORDERED: ALBUTEROL 2.5 MG/3 ML NEB RESP TX SCH (23:00)
[2018-08-25 23:12] LABS: Hemoglobin 11.8 GM/DL (14.0-18.0)
[2018-08-25 23:16] LABS: Alanine Aminotransferase 12 U/L (16-61); Albumin 2.6 G/DL (3.4-5.0); Alkaline Phosphatase 70 U/L (45-117); Aspartate Amino Transferase 26 U/L (0-37); Blood Urea Nitrogen 11 MG/DL (7-18); Calcium 8.7 MG/DL (8.5-10.1); Glucose 139 MG/DL (74-106); Potassium 4.8 MMOL/L (3.5-5.1); Sodium 143 MMOL/L (136-145); Total Protein 6.8 G/DL (6.4-8.3); Troponin I 0.032 NG/ML (0.00-0.045)
[2018-08-26 00:50] LABS: Apearance,Urine Slightly Hazy (Clear); Bacteria,Urine Occasional /HPF (Few); Bilirubin,Urine Negative (Negative); Blood, Urine Negative (Negative); Glucose,Urine (UA) Negative (Negative); Ketones,Urine Negative (Negative); Mucus,Urine Occasional /LPF (Occasional); Nitrite,Urine Negative (Negative); Protein,Urine Negative; RBC,Urine 3 /HPF (0-4); Squamous Epithelial Cell,Urine Occasional /HPF (0-10); Urine Color Amber (Yellow); Urine Specific Gravity 1.021 (1.001-1.035); WBC,Urine 3 /HPF (0-6)
[2018-08-26] MEDS ORDERED: traMADol 50 MG TABLET PO STA (01:26)
[2018-08-26] MEDS ORDERED: traMADol 50 MG TABLET ONE (01:28)
[2018-08-26] MEDS ORDERED: ALBUTEROL 2.5 MG/3 ML NEB RESP TX PRN (01:39)
[2018-08-26] MEDS ORDERED: ONDANSETRON 4 MG/2 ML VIAL IV PRN (01:39)
[2018-08-26] MEDS ORDERED: LEVOFLOXACIN INJ 750 MG in PREMIX 1 EACH IV STA (01:43)
[2018-08-26] MEDS ORDERED: LEVOFLOXACIN INJ 150 ML IV ONE (01:50)
[2018-08-26] MEDS ORDERED: PIPERACILLIN/TAZOBACTAM 3,375 MG VIAL IV ONE (01:50)
[2018-08-26] MEDS ORDERED: SODIUM CHLORIDE 0.9% 100 ML IV ONE (01:51)
[2018-08-26] MEDS ORDERED: PIPERACILLIN/TAZOBACTAM 3,375 MG in SODIUM CHLORIDE 0.9% 100 ML IV ONE (02:00)
[2018-08-26] MEDS: ALBUTEROL/IPRATROPIUM 3 ML NEB RESP TX SCH ×3 (06:47→19:20)
[2018-08-26] MEDS: methylPREDNISolone SOD SUC 125 MG/2 ML VIAL IV SCH ×2 (08:51→17:00)
[2018-08-26] MEDS: SACUBITRIL/VALSARTAN 49-51 MG TABLET PO SCH ×2 (08:53→20:25)
[2018-08-26] MEDS: APIXABAN 2.5 MG TABLET PO SCH ×2 (08:53→20:25)
[2018-08-26] MEDS: FAMOTIDINE 20 MG TABLET PO SCH ×2 (08:53→20:25)
[2018-08-26] MEDS: CARVEDILOL 6.25 MG TABLET PO SCH ×2 (08:54→16:59)
[2018-08-26] MEDS ORDERED: FUROSEMIDE 20 MG TABLET PO SCH (09:00)
[2018-08-26] MEDS ORDERED: PNEUMOCOCCAL VACCINE (13 VALENT) 0.5 ML SYRINGE IM ONE (09:00)
[2018-08-26] MEDS: PIPERACILLIN/TAZOBACTAM 3,375 MG in SODIUM CHLORIDE 0.9% 100 ML IV SCH ×2 (10:30→18:13)
[2018-08-26] MEDS: DIGOXIN 0.25 MG TABLET PO SCH (15:27)
[2018-08-27] MEDS: ALBUTEROL/IPRATROPIUM 3 ML NEB RESP TX SCH ×5 (00:42→23:54)
[2018-08-27] MEDS: LEVOFLOXACIN INJ 750 MG in PREMIX 1 EACH IV SCH (01:15)
[2018-08-27] MEDS: methylPREDNISolone SOD SUC 125 MG/2 ML VIAL IV SCH ×3 (01:15→16:13)
[2018-08-27] MEDS: PIPERACILLIN/TAZOBACTAM 3,375 MG in SODIUM CHLORIDE 0.9% 100 ML IV SCH ×3 (04:11→18:09)
[2018-08-27 05:46] LABS: Basophils % 0.6 % (0.0-0.8); Hemoglobin 15.6 GM/DL (14.0-18.0); Immature Granulocytes % 0.3 %; Immature Granulocytes Absolute 0.01 #; Lymphocytes # 0.4 10*3/uL (1.4-4.0); Lymphocytes % 10.3 % (21.2-54.2); Mean Corpuscular HGB Conc 28.8 GM/DL (32-36); Mean Corpuscular Hemoglobin 25 PG (27-34); Mean Corpuscular Volume 87.1 FL (87-102); Mean Platelet Volume 9.6 FL (9.6-12.0); Monocytes # 0.2 10*3/uL (0.11-0.8); Monocytes % 5.7 % (1.7-12.7); Neutrophils # 2.9 10*3/uL (1.4-7.4); Neutrophils % 83.1 % (38.7-73.9); Platelet Count 91 T/CUMM (130-400); Red Blood Count 6.22 MC/CUMM (3.8-5.5); Red Cell Distribution Width 16.5 % (9.3-17.3); White Blood Count 3.5 T/CUMM (4-12)
[2018-08-27 05:47] LABS: Hematocrit 54.2 VOL% (42.0-52.0)
[2018-08-27 08:03] LABS: Albumin 2.4 G/DL (3.4-5.0); Bilirubin,Total 0.9 MG/DL (0.2-1.0); Calcium 8.3 MG/DL (8.5-10.1); Osmolality,Calculated 282.1 MOS/KG (273-304); Potassium 4.4 MMOL/L (3.5-5.1); Total Protein 6.4 G/DL (6.4-8.3)
[2018-08-27] MEDS: FAMOTIDINE 20 MG TABLET PO SCH ×2 (09:24→21:24)
[2018-08-27] MEDS: APIXABAN 2.5 MG TABLET PO SCH ×2 (09:24→21:24)
[2018-08-27] MEDS: CARVEDILOL 6.25 MG TABLET PO SCH ×2 (09:24→16:13)
[2018-08-27] MEDS: SACUBITRIL/VALSARTAN 49-51 MG TABLET PO SCH ×2 (09:25→21:24)
[2018-08-27] MEDS: DIGOXIN 0.25 MG TABLET PO SCH (12:48)
[2018-08-27] MEDS: ROSUVASTATIN 20 MG TABLET PO SCH (21:24)
[2018-08-28] MEDS: methylPREDNISolone SOD SUC 125 MG/2 ML VIAL IV SCH ×3 (01:08→18:03)
[2018-08-28] MEDS: LEVOFLOXACIN INJ 750 MG in PREMIX 1 EACH IV SCH (01:09)
[2018-08-28] MEDS: PIPERACILLIN/TAZOBACTAM 3,375 MG in SODIUM CHLORIDE 0.9% 100 ML IV SCH ×3 (02:49→18:05)
[2018-08-28] MEDS: ALBUTEROL/IPRATROPIUM 3 ML NEB RESP TX SCH ×3 (07:05→20:16)
[2018-08-28] MEDS: ASPIRIN EC 81 MG TABLET PO SCH (08:12)
[2018-08-28] MEDS: FAMOTIDINE 20 MG TABLET PO SCH ×2 (08:12→21:12)
[2018-08-28] MEDS: APIXABAN 2.5 MG TABLET PO SCH ×2 (08:12→21:12)
[2018-08-28] MEDS: SACUBITRIL/VALSARTAN 49-51 MG TABLET PO SCH ×2 (08:13→21:12)
[2018-08-28] MEDS: CARVEDILOL 6.25 MG TABLET PO SCH (08:13)
[2018-08-28] MEDS: DIGOXIN 0.25 MG TABLET PO SCH (13:54)
[2018-08-28] MEDS: CARVEDILOL 3.125 MG TABLET PO SCH (18:04)
[2018-08-28] MEDS: ROSUVASTATIN 20 MG TABLET PO SCH (21:12)
[2018-08-29] MEDS: ALBUTEROL/IPRATROPIUM 3 ML NEB RESP TX SCH ×4 (00:05→20:11)
[2018-08-29] MEDS: methylPREDNISolone SOD SUC 125 MG/2 ML VIAL IV SCH ×3 (01:33→17:09)
[2018-08-29] MEDS: LEVOFLOXACIN INJ 750 MG in PREMIX 1 EACH IV SCH (01:34)
[2018-08-29] MEDS: PIPERACILLIN/TAZOBACTAM 3,375 MG in SODIUM CHLORIDE 0.9% 100 ML IV SCH ×3 (03:15→18:45)
[2018-08-29] MEDS: ASPIRIN EC 81 MG TABLET PO SCH (08:39)
[2018-08-29] MEDS: CARVEDILOL 3.125 MG TABLET PO SCH ×2 (08:39→17:09)
[2018-08-29] MEDS: APIXABAN 2.5 MG TABLET PO SCH ×2 (08:39→19:47)
[2018-08-29] MEDS: FAMOTIDINE 20 MG TABLET PO SCH ×2 (08:39→19:46)
[2018-08-29] MEDS: SACUBITRIL/VALSARTAN 49-51 MG TABLET PO SCH ×2 (08:39→19:46)
[2018-08-29] MEDS ORDERED: INFLUENZA VIRUS VACCINE 0.5 ML SYRINGE IM ONE (09:00)
[2018-08-29 09:32] LABS: Calcium 8.4 MG/DL (8.5-10.1); Osmolality,Calculated 283.5 MOS/KG (273-304); Potassium 4.1 MMOL/L (3.5-5.1)
[2018-08-29 09:34] LABS: Basophils % 0.1 % (0.0-0.8); Hematocrit 39.2 VOL% (42.0-52.0); Immature Granulocytes % 0.8 %; Immature Granulocytes Absolute 0.07 #; Lymphocytes # 0.5 10*3/uL (1.4-4.0); Lymphocytes % 5.9 % (21.2-54.2); Mean Corpuscular HGB Conc 29.6 GM/DL (32-36); Mean Corpuscular Hemoglobin 26 PG (27-34); Mean Corpuscular Volume 86.2 FL (87-102); Mean Platelet Volume 9.7 FL (9.6-12.0); Monocytes # 0.2 10*3/uL (0.11-0.8); Monocytes % 2.1 % (1.7-12.7); NRBC # 0.04 10*3/uL; Neutrophils # 7.5 10*3/uL (1.4-7.4); Neutrophils % 91.1 % (38.7-73.9); Red Cell Distribution Width 15.5 % (9.3-17.3)
[2018-08-29 09:39] LABS: Hemoglobin 11.6 GM/DL (14.0-18.0); Platelet Count 209 T/CUMM (130-400); Red Blood Count 4.55 MC/CUMM (3.8-5.5); White Blood Count 8.3 T/CUMM (4-12)
[2018-08-29 10:11] LABS: Lymphocytes 5 % (20-55); Myelocytes 1 %; Nucleated Red Blood Cells 1 (0-5); Segmented Neutrophils 91 % (50-85); Total Cells Counted 100
[2018-08-29 10:12] LABS: Hypochromasia 1+; Microcytosis Slight
[2018-08-29 10:13] LABS: Ovalocytes Slight; Platelet Estimate Normal
[2018-08-29] MEDS: DIGOXIN 0.25 MG TABLET PO SCH (13:06)
[2018-08-29] MEDS: ROSUVASTATIN 20 MG TABLET PO SCH (19:46)
[2018-08-30] MEDS: ROSUVASTATIN 20 MG TABLET PO SCH ×2 (01:08→20:09)
[2018-08-30] MEDS: APIXABAN 2.5 MG TABLET PO SCH ×3 (01:09→20:09)
[2018-08-30] MEDS: FAMOTIDINE 20 MG TABLET PO SCH ×3 (01:09→20:09)
[2018-08-30] MEDS: SACUBITRIL/VALSARTAN 49-51 MG TABLET PO SCH ×3 (01:09→20:09)
[2018-08-30] MEDS: ALBUTEROL/IPRATROPIUM 3 ML NEB RESP TX SCH ×4 (02:10→19:02)
[2018-08-30] MEDS: methylPREDNISolone SOD SUC 125 MG/2 ML VIAL IV SCH ×3 (02:10→17:38)
[2018-08-30] MEDS: LEVOFLOXACIN INJ 750 MG in PREMIX 1 EACH IV SCH (02:11)
[2018-08-30] MEDS: PIPERACILLIN/TAZOBACTAM 3,375 MG in SODIUM CHLORIDE 0.9% 100 ML IV SCH ×4 (03:42→18:06)
[2018-08-30 06:10] LABS: Calcium 8.1 MG/DL (8.5-10.1); Osmolality,Calculated 281.4 MOS/KG (273-304)
[2018-08-30 06:27] LABS: Hematocrit 38.4 VOL% (42.0-52.0); Immature Granulocytes % 0.6 %; Immature Granulocytes Absolute 0.05 #; Lymphocytes # 0.6 10*3/uL (1.4-4.0); Lymphocytes % 6.8 % (21.2-54.2); Mean Corpuscular HGB Conc 29.2 GM/DL (32-36); Mean Corpuscular Hemoglobin 25 PG (27-34); Mean Corpuscular Volume 86.1 FL (87-102); Mean Platelet Volume 9.8 FL (9.6-12.0); Monocytes # 0.5 10*3/uL (0.11-0.8); Monocytes % 5.3 % (1.7-12.7); Neutrophils # 7.5 10*3/uL (1.4-7.4); Neutrophils % 87.3 % (38.7-73.9); Platelet Count 233 T/CUMM (130-400); Red Blood Count 4.46 MC/CUMM (3.8-5.5); Red Cell Distribution Width 15.3 % (9.3-17.3); White Blood Count 8.6 T/CUMM (4-12)
[2018-08-30 06:28] LABS: Hemoglobin 11.2 GM/DL (14.0-18.0)
[2018-08-30 06:29] LABS: Hypochromasia 1+; Ovalocytes Slight; Platelet Estimate Adequate
[2018-08-30 06:30] LABS: Microcytosis Slight
[2018-08-30] MEDS: CARVEDILOL 3.125 MG TABLET PO SCH ×2 (09:02→17:37)
[2018-08-30] MEDS: ASPIRIN EC 81 MG TABLET PO SCH (09:02)
[2018-08-30] MEDS: FUROSEMIDE 20 MG TABLET PO SCH (12:05)
[2018-08-30] MEDS: DIGOXIN 0.25 MG TABLET PO SCH (12:05)
[2018-08-31] MEDS: ALBUTEROL/IPRATROPIUM 3 ML NEB RESP TX SCH ×3 (00:36→13:50)
[2018-08-31] MEDS: LEVOFLOXACIN INJ 750 MG in PREMIX 1 EACH IV SCH (01:28)
[2018-08-31] MEDS: methylPREDNISolone SOD SUC 125 MG/2 ML VIAL IV SCH ×2 (01:28→10:11)
[2018-08-31] MEDS: PIPERACILLIN/TAZOBACTAM 3,375 MG in SODIUM CHLORIDE 0.9% 100 ML IV SCH ×2 (02:44→13:33)
[2018-08-31 06:37] LABS: Osmolality,Calculated 283.3 MOS/KG (273-304)
[2018-08-31 07:02] LABS: Basophils % 0.1 % (0.0-0.8); Hematocrit 40.2 VOL% (42.0-52.0); Immature Granulocytes % 0.8 %; Immature Granulocytes Absolute 0.09 #; Lymphocytes # 0.6 10*3/uL (1.4-4.0); Lymphocytes % 5.3 % (21.2-54.2); Mean Corpuscular HGB Conc 29.4 GM/DL (32-36); Mean Corpuscular Hemoglobin 25 PG (27-34); Mean Corpuscular Volume 85.9 FL (87-102); Mean Platelet Volume 9.8 FL (9.6-12.0); Monocytes # 0.7 10*3/uL (0.11-0.8); Monocytes % 5.6 % (1.7-12.7); Neutrophils # 10.5 10*3/uL (1.4-7.4); Neutrophils % 88.2 % (38.7-73.9); Platelet Count 235 T/CUMM (130-400); Red Blood Count 4.68 MC/CUMM (3.8-5.5); Red Cell Distribution Width 15.5 % (9.3-17.3); White Blood Count 11.9 T/CUMM (4-12)
[2018-08-31 07:04] LABS: Hemoglobin 11.8 GM/DL (14.0-18.0)
[2018-08-31] MEDS: FUROSEMIDE 20 MG TABLET PO SCH (10:10)
[2018-08-31] MEDS: APIXABAN 2.5 MG TABLET PO SCH (10:10)
[2018-08-31] MEDS: ASPIRIN EC 81 MG TABLET PO SCH (10:10)
[2018-08-31] MEDS: SACUBITRIL/VALSARTAN 49-51 MG TABLET PO SCH (10:10)
[2018-08-31] MEDS: CARVEDILOL 3.125 MG TABLET PO SCH (10:10)
[2018-08-31] MEDS: FAMOTIDINE 20 MG TABLET PO SCH (10:11)
[2018-08-31] MEDS: DIGOXIN 0.25 MG TABLET PO SCH (13:49)
[2018-08-31 14:19] VITALS: BP 133/73
== END 2018-08-31 14:20 | disposition home or self-care (01) | DRG 196 ==
LOC: EDBD → EDUNIT# → N.ED 21:50 → SUATTDRO 08-26 01:39 → N.EDINP 08-26 01:39 → N.ICU 08-26 02:43 → N.5E 08-27 14:10
PROVIDERS: ADMIT Family Medicine; ATTEND Internal Medicine Geriatric Medicine

== ENCOUNTER 2018-09-21 15:18 | Inpatient (IN) ==
[2018-09-21] MEDS ORDERED: ONDANSETRON 4 MG/2 ML VIAL IV STA (16:39)
[2018-09-21] MEDS ORDERED: methylPREDNISolone SOD SUC 125 MG/2 ML VIAL IV STA (16:39)
[2018-09-21] MEDS ORDERED: MORPHINE 4 MG/1 ML VIAL IV STA (16:39)
[2018-09-21] MEDS ORDERED: FUROSEMIDE 100 MG/10 ML VIAL IV STA (16:39)
[2018-09-21] MEDS ORDERED: ALBUTEROL NEB SOLN 5 MG/ML 20 ML/BOTTLE RESP TX SCH (17:00)
[2018-09-21 17:18] LABS: ABG Base Excess 5.4 MMOL/L (-2.5-2.5); ABG HCO3 29.2 MMOL/L (20-26); ABG Oxygen Saturation 93.4 % (95-100); ABG PCO2 50.6 MM HG (35-48); ABG PH 7.399 (7.35-7.45); ABG PO2 73.6 MM HG (80-95); ABG TCO2 28.3 MMOL/L (23-27); Allen Test Positive
[2018-09-21 17:48] LABS: Basophils % 0.2 % (0.0-0.8); Eosinophils # 0.3 10*3/uL (0.0-0.87); Eosinophils % 2.5 % (0.00-10.9); Hematocrit 37.7 VOL% (42.0-52.0); Hemoglobin 10.7 GM/DL (14.0-18.0); Immature Granulocytes % 0.6 %; Immature Granulocytes Absolute 0.07 #; Lymphocytes # 0.9 10*3/uL (1.4-4.0); Mean Corpuscular HGB Conc 28.4 GM/DL (32-36); Mean Corpuscular Hemoglobin 25 PG (27-34); Mean Corpuscular Volume 87.3 FL (87-102); Mean Platelet Volume 10.6 FL (9.6-12.0); Monocytes # 1.2 10*3/uL (0.11-0.8); Monocytes % 10.8 % (1.7-12.7); Neutrophils # 8.5 10*3/uL (1.4-7.4); Neutrophils % 77.9 % (38.7-73.9); Platelet Count 168 T/CUMM (130-400); Red Blood Count 4.32 MC/CUMM (3.8-5.5); Red Cell Distribution Width 16.7 % (9.3-17.3); White Blood Count 10.9 T/CUMM (4-12)
[2018-09-21 17:59] LABS: INR 1.3; PT Patient Result 14.3 SECS
[2018-09-21 18:08] LABS: Hypochromasia 1+
[2018-09-21 18:09] LABS: Albumin 2.9 G/DL (3.4-5.0); Bilirubin,Total 1.9 MG/DL (0.2-1.0); Elliptocytes Few; Osmolality,Calculated 278.1 MOS/KG (273-304); Platelet Estimate Adequate; Potassium 4.2 MMOL/L (3.5-5.1); Total Protein 6.1 G/DL (6.4-8.3)
[2018-09-21] MEDS ORDERED: DEXTROSE 50% 25 GM/50 ML VIAL IV STA (18:33)
[2018-09-21] MEDS ORDERED: DEXTROSE 50% 25 GM/50 ML SYRINGE IV ONE (19:06)
[2018-09-21] MEDS ORDERED: ALBUTEROL 2.5 MG/3 ML NEB RESP TX PRN (19:37)
[2018-09-21] MEDS ORDERED: MAGNESIUM SULF RIDER 2 GM in PREMIX 1 EACH IV PRN (19:37)
[2018-09-21] MEDS ORDERED: MORPHINE 4 MG/1 ML VIAL IV PRN (19:37)
[2018-09-21] MEDS ORDERED: ONDANSETRON 4 MG/2 ML VIAL IV PRN (19:37)
[2018-09-21] MEDS ORDERED: MAGNESIUM SULF RIDER 4 GM in PREMIX 1 EACH IV PRN (19:37)
[2018-09-21] MEDS ORDERED: ENOXAPARIN 40 MG/0.4 ML SYRINGE SUBCUT SCH (20:00)
[2018-09-21] MEDS: BUDESONIDE/FORMOTEROL 160-4.5 INHALER 6 GM INH SCH (22:25)
[2018-09-21] MEDS: APIXABAN 2.5 MG TABLET PO SCH (22:25)
[2018-09-21] MEDS: ROSUVASTATIN 20 MG TABLET PO SCH (22:25)
[2018-09-22] MEDS: methylPREDNISolone SOD SUC 40 MG/1 ML VIAL IV SCH ×5 (00:20→23:20)
[2018-09-22] MEDS: ALBUTEROL/IPRATROPIUM 3 ML NEB RESP TX SCH ×4 (01:20→19:07)
[2018-09-22 07:00] LABS: Lymphocytes # 0.5 10*3/uL (1.4-4.0); Lymphocytes % 9.6 % (21.2-54.2); Neutrophils # 4.7 10*3/uL (1.4-7.4)
[2018-09-22 07:21] LABS: Hematocrit 34.2 VOL% (42.0-52.0); Immature Granulocytes % 0.8 %; Immature Granulocytes Absolute 0.04 #; Mean Corpuscular HGB Conc 29.2 GM/DL (32-36); Mean Corpuscular Hemoglobin 25 PG (27-34); Mean Corpuscular Volume 85.7 FL (87-102); Mean Platelet Volume 10.6 FL (9.6-12.0); Monocytes # 0.1 10*3/uL (0.11-0.8); Monocytes % 1.5 % (1.7-12.7); Neutrophils % 88.1 % (38.7-73.9); Platelet Count 150 T/CUMM (130-400); Red Blood Count 3.99 MC/CUMM (3.8-5.5); Red Cell Distribution Width 16.5 % (9.3-17.3); White Blood Count 5.3 T/CUMM (4-12)
[2018-09-22 07:25] LABS: Albumin 2.5 G/DL (3.4-5.0); Bilirubin,Total 1.3 MG/DL (0.2-1.0); Calcium 8.6 MG/DL (8.5-10.1); Osmolality,Calculated 277.5 MOS/KG (273-304); Potassium 3.9 MMOL/L (3.5-5.1); Total Protein 5.9 G/DL (6.4-8.3)
[2018-09-22 07:34] LABS: Hypochromasia 1+; Ovalocytes Slight; Platelet Estimate Adequate
[2018-09-22] MEDS: FUROSEMIDE 40 MG/4 ML VIAL IV SCH ×2 (08:33→23:22)
[2018-09-22] MEDS: DIGOXIN 0.125 MG TABLET PO SCH (09:26)
[2018-09-22] MEDS: METOPROLOL SUCCINATE XL 50 MG TABLET PO SCH (09:26)
[2018-09-22] MEDS: amLODIPine 2.5 MG TABLET PO SCH (09:26)
[2018-09-22] MEDS: APIXABAN 2.5 MG TABLET PO SCH ×2 (09:26→21:29)
[2018-09-22] MEDS: ASPIRIN EC 81 MG TABLET PO SCH (09:26)
[2018-09-22] MEDS: PANTOPRAZOLE 40 MG TABLET PO SCH (09:26)
[2018-09-22] MEDS: BUDESONIDE/FORMOTEROL 160-4.5 INHALER 6 GM INH SCH ×2 (09:27→21:28)
[2018-09-22] MEDS: Tiotropium Br/Olodaterol Hcl [Stiolto Respimat Inhal Spray] INH SCH (10:38)
[2018-09-22] MEDS: ROSUVASTATIN 20 MG TABLET PO SCH (21:29)
[2018-09-23] MEDS: ALBUTEROL/IPRATROPIUM 3 ML NEB RESP TX SCH ×4 (01:05→20:37)
[2018-09-23] MEDS: methylPREDNISolone SOD SUC 40 MG/1 ML VIAL IV SCH ×3 (05:28→16:54)
[2018-09-23 05:43] LABS: Calcium 8.7 MG/DL (8.5-10.1); Osmolality,Calculated 281.5 MOS/KG (273-304); Potassium 3.7 MMOL/L (3.5-5.1)
[2018-09-23 06:04] LABS: Hematocrit 34.2 VOL% (42.0-52.0); Immature Granulocytes % 0.5 %; Immature Granulocytes Absolute 0.04 #; Lymphocytes # 0.4 10*3/uL (1.4-4.0); Lymphocytes % 5.4 % (21.2-54.2); Mean Corpuscular HGB Conc 28.9 GM/DL (32-36); Mean Corpuscular Hemoglobin 25 PG (27-34); Mean Corpuscular Volume 84.7 FL (87-102); Mean Platelet Volume 10.1 FL (9.6-12.0); Monocytes # 0.5 10*3/uL (0.11-0.8); Neutrophils # 6.9 10*3/uL (1.4-7.4); Neutrophils % 88.1 % (38.7-73.9); Platelet Count 153 T/CUMM (130-400); Red Blood Count 4.04 MC/CUMM (3.8-5.5); Red Cell Distribution Width 15.9 % (9.3-17.3); White Blood Count 7.8 T/CUMM (4-12)
[2018-09-23 06:06] LABS: Hemoglobin 9.9 GM/DL (14.0-18.0)
[2018-09-23 06:17] LABS: Hypochromasia 1+; Ovalocytes Slight; Platelet Estimate Adequate
[2018-09-23] MEDS: DIGOXIN 0.125 MG TABLET PO SCH (09:24)
[2018-09-23] MEDS: ASPIRIN EC 81 MG TABLET PO SCH (09:24)
[2018-09-23] MEDS: APIXABAN 2.5 MG TABLET PO SCH ×2 (09:24→21:17)
[2018-09-23] MEDS: METOPROLOL SUCCINATE XL 50 MG TABLET PO SCH (09:24)
[2018-09-23] MEDS: BUDESONIDE/FORMOTEROL 160-4.5 INHALER 6 GM INH SCH ×2 (09:25→21:19)
[2018-09-23] MEDS: Tiotropium Br/Olodaterol Hcl [Stiolto Respimat Inhal Spray] INH SCH (09:25)
[2018-09-23] MEDS: PANTOPRAZOLE 40 MG TABLET PO SCH (09:25)
[2018-09-23] MEDS: amLODIPine 2.5 MG TABLET PO SCH (09:25)
[2018-09-23] MEDS ORDERED: FUROSEMIDE 40 MG/4 ML VIAL ONE (09:28)
[2018-09-23] MEDS: FUROSEMIDE 40 MG/4 ML VIAL IV SCH (09:29)
[2018-09-23] MEDS: MECLIZINE 25 MG TABLET PO SCH ×2 (15:34→21:17)
[2018-09-23] MEDS: FUROSEMIDE 40 MG TABLET PO SCH (16:53)
[2018-09-23] MEDS: ROSUVASTATIN 20 MG TABLET PO SCH (21:18)
[2018-09-24] MEDS: methylPREDNISolone SOD SUC 40 MG/1 ML VIAL IV SCH ×3 (00:01→12:38)
[2018-09-24] MEDS: ALBUTEROL/IPRATROPIUM 3 ML NEB RESP TX SCH ×2 (01:08→06:50)
[2018-09-24 05:19] LABS: Calcium 8.7 MG/DL (8.5-10.1); Osmolality,Calculated 283.4 MOS/KG (273-304); Potassium 3.9 MMOL/L (3.5-5.1)
[2018-09-24 05:31] LABS: Hematocrit 33.5 VOL% (42.0-52.0); Immature Granulocytes % 0.4 %; Immature Granulocytes Absolute 0.03 #; Lymphocytes # 0.4 10*3/uL (1.4-4.0); Mean Corpuscular HGB Conc 28.7 GM/DL (32-36); Mean Corpuscular Hemoglobin 24 PG (27-34); Mean Platelet Volume 10.1 FL (9.6-12.0); Monocytes # 0.5 10*3/uL (0.11-0.8); Monocytes % 6.8 % (1.7-12.7); Neutrophils # 6.5 10*3/uL (1.4-7.4); Neutrophils % 87.8 % (38.7-73.9); Platelet Count 152 T/CUMM (130-400); Red Blood Count 3.94 MC/CUMM (3.8-5.5); Red Cell Distribution Width 15.9 % (9.3-17.3); White Blood Count 7.4 T/CUMM (4-12)
[2018-09-24 05:56] LABS: Hemoglobin 9.6 GM/DL (14.0-18.0)
[2018-09-24] MEDS: PANTOPRAZOLE 40 MG TABLET PO SCH (09:33)
[2018-09-24] MEDS: METOPROLOL SUCCINATE XL 50 MG TABLET PO SCH (09:33)
[2018-09-24] MEDS: amLODIPine 2.5 MG TABLET PO SCH (09:33)
[2018-09-24] MEDS: FUROSEMIDE 40 MG TABLET PO SCH (09:33)
[2018-09-24] MEDS: APIXABAN 2.5 MG TABLET PO SCH (09:33)
[2018-09-24] MEDS: ASPIRIN EC 81 MG TABLET PO SCH (09:33)
[2018-09-24] MEDS: DIGOXIN 0.125 MG TABLET PO SCH (09:33)
[2018-09-24] MEDS: MECLIZINE 25 MG TABLET PO SCH (09:33)
[2018-09-24] MEDS: Tiotropium Br/Olodaterol Hcl [Stiolto Respimat Inhal Spray] INH SCH (09:34)
[2018-09-24] MEDS: BUDESONIDE/FORMOTEROL 160-4.5 INHALER 6 GM INH SCH (09:34)
[2018-09-24 12:18] VITALS: BP 122/69
== END 2018-09-24 13:36 | DRG 189 ==
LOC: EDUNIT# → EDBD → N.ED 15:18 → N.EDINP 19:37 → SUPCPDRO 19:37 → N.TELEN 21:14
PROVIDERS: ADMIT Hospitalist; ATTEND Hospitalist

== ENCOUNTER 2018-12-18 17:36 | Inpatient (IN) ==
[2018-12-18] MEDS ORDERED: ONDANSETRON 4 MG/2 ML VIAL IV PRN (21:10)
[2018-12-18] MEDS ORDERED: ALBUTEROL 2.5 MG/3 ML NEB RESP TX PRN (21:18)
[2018-12-18] MEDS: methylPREDNISolone SOD SUC 40 MG/1 ML VIAL IV SCH (21:34)
[2018-12-18 22:26] LABS: Basophils % 0.5 % (0.0-0.8); Eosinophils # 0.2 10*3/uL (0.0-0.87); Eosinophils % 2.2 % (0.00-10.9); Hematocrit 41.5 VOL% (42.0-52.0); Hemoglobin 11.9 GM/DL (14.0-18.0); Immature Granulocytes % 0.7 %; Immature Granulocytes Absolute 0.05 #; Lymphocytes # 1.5 10*3/uL (1.4-4.0); Lymphocytes % 19.4 % (21.2-54.2); Mean Corpuscular HGB Conc 28.7 GM/DL (32-36); Mean Corpuscular Volume 90.2 FL (87-102); Mean Platelet Volume 9.1 FL (9.6-12.0); Monocytes % 13.4 % (1.7-12.7); Neutrophils % 63.8 % (38.7-73.9); Platelet Count 246 T/CUMM (130-400); Red Cell Distribution Width 17.7 % (9.3-17.3); White Blood Count 7.6 T/CUMM (4-12)
[2018-12-18 22:41] LABS: Troponin I 0.053 NG/ML (0.00-0.045)
[2018-12-18 22:43] LABS: Albumin 2.9 G/DL (3.4-5.0); Bilirubin,Total 0.9 MG/DL (0.2-1.0); Calcium 8.9 MG/DL (8.5-10.1); Osmolality,Calculated 283.8 MOS/KG (273-304); Thyroid Stimulating Hormone 1.43 uIU/ml (0.358-3.74); Total Protein 6.7 G/DL (6.4-8.3)
[2018-12-19] MEDS: LEVOFLOXACIN INJ 750 MG in PREMIX 1 EACH IV SCH ×2 (00:48→23:59)
[2018-12-19 00:54] LABS: Apearance,Urine CLEAR (Clear); Bilirubin,Urine Negative (Negative); Blood, Urine Small mg/dL (Negative); Glucose,Urine (UA) Negative (Negative); Ketones,Urine 5 mg/dL (Negative); Nitrite,Urine Negative (Negative); Protein,Urine Negative; RBC,Urine <1 /HPF (0-4); Squamous Epithelial Cell,Urine Occasional /HPF (0-10); Urine Color Yellow (Yellow); Urine Specific Gravity 1.004 (1.001-1.035); Urine Urobilinogen < 2.0 EU/DL (0.2-1.0); WBC,Urine 2 /HPF (0-6)
[2018-12-19 05:14] LABS: Calcium 8.3 MG/DL (8.5-10.1); Risk Ratio 1.91; Troponin I 0.044 NG/ML (0.00-0.045); VLDL CHOLESTEROL 11.4 MG/DL
[2018-12-19] MEDS: methylPREDNISolone SOD SUC 40 MG/1 ML VIAL IV SCH ×3 (05:45→20:50)
[2018-12-19] MEDS ORDERED: Tiotropium Br/Olodaterol Hcl [Stiolto Respimat Inhal Spray] INH SCH (09:00)
[2018-12-19] MEDS: PANTOPRAZOLE 40 MG TABLET PO SCH (09:38)
[2018-12-19] MEDS: ASPIRIN EC 81 MG TABLET PO SCH (09:38)
[2018-12-19] MEDS: APIXABAN 2.5 MG TABLET PO SCH ×2 (09:38→20:50)
[2018-12-19] MEDS: BUDESONIDE/FORMOTEROL 160-4.5 INHALER 6 GM INH SCH ×2 (09:38→20:58)
[2018-12-19] MEDS: FUROSEMIDE 40 MG/4 ML VIAL IV SCH ×2 (09:38→15:24)
[2018-12-19] MEDS: DIGOXIN 0.125 MG TABLET PO SCH (13:01)
[2018-12-19] MEDS: ROSUVASTATIN 20 MG TABLET PO SCH (20:50)
[2018-12-19] MEDS: ACETAMINOPHEN 325 MG TABLET PO PRN (23:58)
[2018-12-20] MEDS: methylPREDNISolone SOD SUC 40 MG/1 ML VIAL IV SCH ×2 (05:12→12:19)
[2018-12-20 05:25] LABS: Basophils % 0.1 % (0.0-0.8); Hematocrit 37.5 VOL% (42.0-52.0); Hemoglobin 11.1 GM/DL (14.0-18.0); Immature Granulocytes % 0.7 %; Immature Granulocytes Absolute 0.08 #; Lymphocytes # 0.9 10*3/uL (1.4-4.0); Lymphocytes % 8.7 % (21.2-54.2); Mean Corpuscular HGB Conc 29.6 GM/DL (32-36); Mean Corpuscular Volume 87.6 FL (87-102); Mean Platelet Volume 9.3 FL (9.6-12.0); Neutrophils % 83.5 % (38.7-73.9); Platelet Count 238 T/CUMM (130-400); Red Blood Count 4.28 MC/CUMM (3.8-5.5); Red Cell Distribution Width 17.3 % (9.3-17.3); White Blood Count 10.7 T/CUMM (4-12)
[2018-12-20 05:49] LABS: Albumin 2.5 G/DL (3.4-5.0); Bilirubin,Total 0.6 MG/DL (0.2-1.0); Calcium 8.4 MG/DL (8.5-10.1); Osmolality,Calculated 278.8 MOS/KG (273-304); Total Protein 6.2 G/DL (6.4-8.3)
[2018-12-20] MEDS: FUROSEMIDE 40 MG/4 ML VIAL IV SCH (08:27)
[2018-12-20] MEDS: BUDESONIDE/FORMOTEROL 160-4.5 INHALER 6 GM INH SCH ×2 (08:27→21:39)
[2018-12-20] MEDS: PANTOPRAZOLE 40 MG TABLET PO SCH (08:27)
[2018-12-20] MEDS: ASPIRIN EC 81 MG TABLET PO SCH (08:27)
[2018-12-20] MEDS: APIXABAN 2.5 MG TABLET PO SCH ×2 (08:27→21:31)
[2018-12-20] MEDS ORDERED: TUBERCULIN SKIN TEST 0.1 ML SYRINGE INTRADERM ONE (12:00)
[2018-12-20] MEDS: DIGOXIN 0.125 MG TABLET PO SCH (12:19)
[2018-12-20] MEDS: LEVOFLOXACIN INJ 750 MG in PREMIX 1 EACH IV SCH (21:30)
[2018-12-20] MEDS: ROSUVASTATIN 20 MG TABLET PO SCH (21:31)
[2018-12-20] MEDS: ACETAMINOPHEN 325 MG TABLET PO PRN (21:31)
[2018-12-21] MEDS: methylPREDNISolone SOD SUC 125 MG/2 ML VIAL IV SCH ×2 (00:01→12:43)
[2018-12-21] MEDS: FUROSEMIDE 20 MG TABLET PO SCH (09:53)
[2018-12-21] MEDS: ASPIRIN EC 81 MG TABLET PO SCH (09:53)
[2018-12-21] MEDS: PANTOPRAZOLE 40 MG TABLET PO SCH (09:53)
[2018-12-21] MEDS: ACETAMINOPHEN 325 MG TABLET PO PRN (09:53)
[2018-12-21] MEDS: APIXABAN 2.5 MG TABLET PO SCH ×2 (09:53→21:14)
[2018-12-21] MEDS: BUDESONIDE/FORMOTEROL 160-4.5 INHALER 6 GM INH SCH ×2 (09:54→21:14)
[2018-12-21 11:08] LABS: ABG Base Excess 10.5 MMOL/L (-2.5-2.5); ABG HCO3 33.7 MMOL/L (20-26); ABG Oxygen Saturation 75.2 % (95-100); ABG PCO2 54.6 MM HG (35-48); ABG PH 7.436 (7.35-7.45); ABG PO2 42.3 MM HG (80-95); ABG TCO2 32.8 MMOL/L (23-27); Allen Test Positive
[2018-12-21] MEDS: DIGOXIN 0.125 MG TABLET PO SCH (12:43)
[2018-12-21] MEDS: LEVOFLOXACIN INJ 750 MG in PREMIX 1 EACH IV SCH (21:13)
[2018-12-21] MEDS: ROSUVASTATIN 20 MG TABLET PO SCH (21:14)
[2018-12-22] MEDS: methylPREDNISolone SOD SUC 125 MG/2 ML VIAL IV SCH ×2 (00:17→09:39)
[2018-12-22 06:27] LABS: Calcium 8.1 MG/DL (8.5-10.1); Osmolality,Calculated 287.3 MOS/KG (273-304)
[2018-12-22 07:39] VITALS: BP 117/76
[2018-12-22] MEDS: ACETAMINOPHEN 325 MG TABLET PO PRN (09:38)
[2018-12-22] MEDS: FUROSEMIDE 20 MG TABLET PO SCH (09:38)
[2018-12-22] MEDS: PANTOPRAZOLE 40 MG TABLET PO SCH (09:38)
[2018-12-22] MEDS: ASPIRIN EC 81 MG TABLET PO SCH (09:38)
[2018-12-22] MEDS: BUDESONIDE/FORMOTEROL 160-4.5 INHALER 6 GM INH SCH (09:39)
[2018-12-22] MEDS: APIXABAN 2.5 MG TABLET PO SCH (09:39)
== END 2018-12-22 12:25 | DRG 189 ==
LOC: N.CC 19:28 → SUATTDRO 19:28 → N.2E 12-19 14:19
PROVIDERS: ADMIT Internal Medicine; ATTEND Internal Medicine

== ENCOUNTER 2018-12-23 16:01 | Inpatient (IN) ==
[2018-12-23 17:01] LABS: ABG Base Excess 9.5 MMOL/L (-2.5-2.5); ABG HCO3 33.3 MMOL/L (20-26); ABG Oxygen Saturation 98.3 % (95-100); ABG PCO2 49.5 MM HG (35-48); ABG PH 7.458 (7.35-7.45); ABG PO2 98.2 MM HG (80-95); ABG TCO2 30.8 MMOL/L (23-27); Allen Test Positive
[2018-12-23 18:03] LABS: Albumin 2.7 G/DL (3.4-5.0); Bilirubin,Total 0.5 MG/DL (0.2-1.0); Calcium 8.4 MG/DL (8.5-10.1); Osmolality,Calculated 287.3 MOS/KG (273-304); Total Protein 6.2 G/DL (6.4-8.3)
[2018-12-23 18:05] LABS: Basophils # 0.1 10*3/uL (0.0-0.2); Basophils % 0.3 % (0.0-0.8); Eosinophils % 0.1 % (0.00-10.9); Hematocrit 41.9 VOL% (42.0-52.0); Immature Granulocytes % 3.5 %; Immature Granulocytes Absolute 0.51 #; Lymphocytes % 7.2 % (21.2-54.2); Mean Corpuscular HGB Conc 29.1 GM/DL (32-36); Mean Corpuscular Volume 89.3 FL (87-102); Mean Platelet Volume 9.4 FL (9.6-12.0); Monocytes % 8.6 % (1.7-12.7); NRBC # 0.09 10*3/uL; Neutrophils % 80.3 % (38.7-73.9); Platelet Count 253 T/CUMM (130-400); Red Blood Count 4.69 MC/CUMM (3.8-5.5)
[2018-12-23 18:08] LABS: Hemoglobin 12.2 GM/DL (14.0-18.0); White Blood Count 14.4 T/CUMM (4-12)
[2018-12-23 18:19] LABS: Band Neutrophils 1 % (0-10); Burr Cells Few; Elliptocytes 1+; Lymphocytes 7 % (20-55); Polychromasia Slight; Segmented Neutrophils 91 % (50-85); Total Cells Counted 100
[2018-12-23 18:20] LABS: Anisocytosis 1+; Hypochromasia Slight; Microcytosis 1+; Poikilocytosis 1+
[2018-12-23 18:21] LABS: Platelet Estimate Normal
[2018-12-23] MEDS ORDERED: ACETAMINOPHEN 325 MG TABLET PO PRN (19:12)
[2018-12-23] MEDS ORDERED: ONDANSETRON 4 MG/2 ML VIAL IV PRN (19:12)
[2018-12-23] MEDS ORDERED: OLODATEROL HCL IH PRN (19:16)
[2018-12-23] MEDS ORDERED: ALBUTEROL 2.5 MG/3 ML NEB RESP TX PRN (19:16)
[2018-12-23] MEDS ORDERED: TIOTROPIUM BR IH PRN (19:16)
[2018-12-23] MEDS ORDERED: OLODATEROL HCL IH SCH (21:00)
[2018-12-23] MEDS ORDERED: TIOTROPIUM BR IH SCH (21:00)
[2018-12-23] MEDS: APIXABAN 2.5 MG TABLET PO SCH (21:31)
[2018-12-23] MEDS: ROSUVASTATIN 20 MG TABLET PO SCH (21:31)
[2018-12-23] MEDS: methylPREDNISolone SOD SUC 40 MG/1 ML VIAL IV SCH (21:31)
[2018-12-24] MEDS: methylPREDNISolone SOD SUC 40 MG/1 ML VIAL IV SCH ×3 (04:37→22:29)
[2018-12-24 06:15] LABS: Osmolality,Calculated 288.1 MOS/KG (273-304)
[2018-12-24 06:31] LABS: Basophils # 0.1 10*3/uL (0.0-0.2); Basophils % 0.3 % (0.0-0.8); Hematocrit 38.8 VOL% (42.0-52.0); Hemoglobin 11.6 GM/DL (14.0-18.0); Immature Granulocytes % 2.6 %; Immature Granulocytes Absolute 0.41 #; Lymphocytes # 1.3 10*3/uL (1.4-4.0); Mean Corpuscular HGB Conc 29.9 GM/DL (32-36); Mean Corpuscular Volume 88.2 FL (87-102); Mean Platelet Volume 9.3 FL (9.6-12.0); Monocytes % 4.7 % (1.7-12.7); NRBC # 0.08 10*3/uL; Neutrophils % 84.4 % (38.7-73.9); Platelet Count 231 T/CUMM (130-400); Red Cell Distribution Width 17.9 % (9.3-17.3); White Blood Count 15.6 T/CUMM (4-12)
[2018-12-24] MEDS ORDERED: PANTOPRAZOLE 40 MG TABLET PO SCH (09:00)
[2018-12-24] MEDS: FUROSEMIDE 20 MG TABLET PO SCH (09:28)
[2018-12-24] MEDS: amLODIPine 2.5 MG TABLET PO SCH (09:29)
[2018-12-24] MEDS: APIXABAN 2.5 MG TABLET PO SCH ×2 (09:29→22:29)
[2018-12-24] MEDS: ASPIRIN EC 81 MG TABLET PO SCH (09:29)
[2018-12-24] MEDS: PANTOPRAZOLE 40 MG TABLET PO SCH (09:29)
[2018-12-24] MEDS: DIGOXIN 0.125 MG TABLET PO SCH (13:26)
[2018-12-24] MEDS: ROSUVASTATIN 20 MG TABLET PO SCH (22:29)
[2018-12-25] MEDS: methylPREDNISolone SOD SUC 40 MG/1 ML VIAL IV SCH ×3 (04:23→21:07)
[2018-12-25] MEDS: amLODIPine 2.5 MG TABLET PO SCH (08:58)
[2018-12-25] MEDS: ASPIRIN EC 81 MG TABLET PO SCH (08:58)
[2018-12-25] MEDS: PANTOPRAZOLE 40 MG TABLET PO SCH (08:58)
[2018-12-25] MEDS: APIXABAN 2.5 MG TABLET PO SCH ×2 (08:58→21:06)
[2018-12-25] MEDS: FUROSEMIDE 20 MG TABLET PO SCH (08:58)
[2018-12-25] MEDS: DIGOXIN 0.125 MG TABLET PO SCH (13:58)
[2018-12-25] MEDS: ROSUVASTATIN 20 MG TABLET PO SCH (21:06)
[2018-12-26] MEDS: methylPREDNISolone SOD SUC 40 MG/1 ML VIAL IV SCH ×2 (05:10→12:37)
[2018-12-26] MEDS: amLODIPine 2.5 MG TABLET PO SCH (08:07)
[2018-12-26] MEDS: PANTOPRAZOLE 40 MG TABLET PO SCH (08:08)
[2018-12-26] MEDS: FUROSEMIDE 20 MG TABLET PO SCH (08:08)
[2018-12-26] MEDS: APIXABAN 2.5 MG TABLET PO SCH (08:08)
[2018-12-26] MEDS: ASPIRIN EC 81 MG TABLET PO SCH (08:08)
[2018-12-26] MEDS: DIGOXIN 0.125 MG TABLET PO SCH (12:37)
[2018-12-26 15:52] VITALS: BP 137/87
== END 2018-12-26 17:50 | DRG 189 ==
LOC: EDUNIT# → N.EDINP 16:01 → N.ED 16:01 → SUATTDRO 19:12 → N.2E 20:23
PROVIDERS: ADMIT Internal Medicine; ATTEND Internal Medicine Nephrology

== ENCOUNTER 2019-03-21 17:48 | Inpatient (IN) ==
[2019-03-21] MEDS ORDERED: methylPREDNISolone SOD SUC 125 MG/2 ML VIAL IV STA (18:46)
[2019-03-21] MEDS ORDERED: ALBUTEROL/IPRATROPIUM 3 ML NEB RESP TX STA (18:46)
[2019-03-21 19:50] LABS: Albumin 2.7 G/DL (3.4-5.0); Bilirubin,Total 0.9 MG/DL (0.2-1.0); Calcium 9.1 MG/DL (8.5-10.1); Osmolality,Calculated 276.3 MOS/KG (273-304); Total Protein 6.7 G/DL (6.4-8.3)
[2019-03-21 19:52] LABS: Basophils % 0.5 % (0.0-0.8); Eosinophils # 0.2 10*3/uL (0.0-0.87); Eosinophils % 2.4 % (0.00-10.9); Immature Granulocytes % 0.3 %; Immature Granulocytes Absolute 0.02 #; Lymphocytes # 0.9 10*3/uL (1.4-4.0); Lymphocytes % 12.9 % (21.2-54.2); Mean Corpuscular HGB Conc 28.2 GM/DL (32-36); Mean Corpuscular Volume 89.1 FL (87-102); Mean Platelet Volume 9.3 FL (9.6-12.0); Monocytes % 4.4 % (1.7-12.7); Neutrophils % 79.5 % (38.7-73.9); Platelet Count 215 T/CUMM (130-400); Red Blood Count 5.14 MC/CUMM (3.8-5.5); Red Cell Distribution Width 16.9 % (9.3-17.3); White Blood Count 6.7 T/CUMM (4-12)
[2019-03-21 19:53] LABS: Hematocrit 45.8 VOL% (42.0-52.0); Hemoglobin 12.9 GM/DL (14.0-18.0)
[2019-03-21] MEDS ORDERED: ACETAMINOPHEN 325 MG TABLET PO PRN (20:07)
[2019-03-21] MEDS ORDERED: FUROSEMIDE 40 MG/4 ML VIAL IV STA (20:07)
[2019-03-21] MEDS ORDERED: ALBUTEROL 2.5 MG/3 ML NEB RESP TX PRN (20:07)
[2019-03-21] MEDS ORDERED: ONDANSETRON 4 MG/2 ML VIAL IV PRN (20:07)
[2019-03-21] MEDS: LEVOFLOXACIN INJ 750 MG in PREMIX 1 EACH IV SCH (21:19)
[2019-03-21] MEDS: ROSUVASTATIN 20 MG TABLET PO SCH (22:55)
[2019-03-21] MEDS: BUDESONIDE/FORMOTEROL 160-4.5 INHALER 6 GM INH SCH (22:56)
[2019-03-21] MEDS: APIXABAN 2.5 MG TABLET PO SCH (22:56)
[2019-03-22] MEDS: methylPREDNISolone SOD SUC 40 MG/1 ML VIAL IV SCH ×4 (00:26→17:43)
[2019-03-22] MEDS: ALBUTEROL/IPRATROPIUM 3 ML NEB RESP TX SCH ×4 (00:31→19:46)
[2019-03-22 04:30] LABS: Albumin 2.8 G/DL (3.4-5.0); Bilirubin,Total 0.7 MG/DL (0.2-1.0); Calcium 9.3 MG/DL (8.5-10.1); Osmolality,Calculated 279.4 MOS/KG (273-304); Total Protein 7.3 G/DL (6.4-8.3)
[2019-03-22 04:52] LABS: Basophils % 0.3 % (0.0-0.8); Hematocrit 46.2 VOL% (42.0-52.0); Immature Granulocytes % 0.3 %; Immature Granulocytes Absolute 0.01 #; Lymphocytes # 0.6 10*3/uL (1.4-4.0); Lymphocytes % 15.9 % (21.2-54.2); Mean Corpuscular HGB Conc 29.2 GM/DL (32-36); Mean Corpuscular Volume 87.3 FL (87-102); Mean Platelet Volume 9.4 FL (9.6-12.0); Monocytes % 1.4 % (1.7-12.7); Neutrophils % 82.1 % (38.7-73.9); Platelet Count 211 T/CUMM (130-400); Red Blood Count 5.29 MC/CUMM (3.8-5.5); White Blood Count 3.7 T/CUMM (4-12)
[2019-03-22 04:54] LABS: Hemoglobin 13.5 GM/DL (14.0-18.0)
[2019-03-22 05:12] LABS: Hypochromasia 1+; Ovalocytes Slight; Platelet Estimate Adequate
[2019-03-22] MEDS ORDERED: PANTOPRAZOLE 40 MG TABLET PO SCH (09:00)
[2019-03-22] MEDS: PANTOPRAZOLE 40 MG TABLET PO SCH (09:37)
[2019-03-22] MEDS: APIXABAN 2.5 MG TABLET PO SCH ×2 (09:37→21:41)
[2019-03-22] MEDS: METOPROLOL SUCCINATE XL 50 MG TABLET PO SCH (09:37)
[2019-03-22] MEDS: ASPIRIN EC 81 MG TABLET PO SCH (09:37)
[2019-03-22] MEDS: BUDESONIDE/FORMOTEROL 160-4.5 INHALER 6 GM INH SCH ×2 (09:43→21:59)
[2019-03-22] MEDS: DIGOXIN 0.125 MG TABLET PO SCH (09:53)
[2019-03-22] MEDS: ROSUVASTATIN 20 MG TABLET PO SCH (21:41)
[2019-03-22] MEDS: LEVOFLOXACIN INJ 750 MG in PREMIX 1 EACH IV SCH (21:41)
[2019-03-23] MEDS: methylPREDNISolone SOD SUC 40 MG/1 ML VIAL IV SCH ×4 (00:25→12:00)
[2019-03-23] MEDS: ALBUTEROL/IPRATROPIUM 3 ML NEB RESP TX SCH ×4 (00:26→19:07)
[2019-03-23 03:45] LABS: Allen Test Positive; Pt O2 Delivery Device Other
[2019-03-23 03:46] LABS: ABG Base Excess 9.8 MMOL/L (-2.5-2.5); ABG HCO3 33.2 MMOL/L (20-26); ABG Oxygen Saturation 84.3 % (95-100); ABG PCO2 54.3 MM HG (35-48); ABG PH 7.433 (7.35-7.45); ABG TCO2 31.7 MMOL/L (23-27)
[2019-03-23 06:30] LABS: Albumin 2.4 G/DL (3.4-5.0); Bilirubin,Total 0.6 MG/DL (0.2-1.0); Calcium 8.5 MG/DL (8.5-10.1); Osmolality,Calculated 280.5 MOS/KG (273-304); Total Protein 6.2 G/DL (6.4-8.3)
[2019-03-23 06:31] LABS: Basophils % 0.1 % (0.0-0.8); Hematocrit 39.4 VOL% (42.0-52.0); Immature Granulocytes % 0.4 %; Immature Granulocytes Absolute 0.05 #; Lymphocytes # 0.7 10*3/uL (1.4-4.0); Lymphocytes % 6.1 % (21.2-54.2); Mean Corpuscular HGB Conc 29.4 GM/DL (32-36); Mean Corpuscular Volume 86.4 FL (87-102); Mean Platelet Volume 9.2 FL (9.6-12.0); Monocytes % 5.1 % (1.7-12.7); Neutrophils % 88.3 % (38.7-73.9); Platelet Count 217 T/CUMM (130-400); Red Blood Count 4.56 MC/CUMM (3.8-5.5); Red Cell Distribution Width 16.6 % (9.3-17.3); White Blood Count 11.2 T/CUMM (4-12)
[2019-03-23 06:32] LABS: Hemoglobin 11.6 GM/DL (14.0-18.0)
[2019-03-23] MEDS: BUDESONIDE/FORMOTEROL 160-4.5 INHALER 6 GM INH SCH ×2 (09:10→22:54)
[2019-03-23] MEDS: ASPIRIN EC 81 MG TABLET PO SCH (09:11)
[2019-03-23] MEDS: APIXABAN 2.5 MG TABLET PO SCH ×2 (09:11→22:54)
[2019-03-23] MEDS: METOPROLOL SUCCINATE XL 50 MG TABLET PO SCH (09:11)
[2019-03-23] MEDS: PANTOPRAZOLE 40 MG TABLET PO SCH (09:11)
[2019-03-23] MEDS: DIGOXIN 0.125 MG TABLET PO SCH (09:11)
[2019-03-23] MEDS ORDERED: SKIN HEALING OINT (AQUAPHOR) 50 GM TUBE TOP PRN (16:06)
[2019-03-23] MEDS: ROSUVASTATIN 20 MG TABLET PO SCH (22:54)
[2019-03-24] MEDS: ALBUTEROL/IPRATROPIUM 3 ML NEB RESP TX SCH ×3 (00:45→13:31)
[2019-03-24] MEDS: methylPREDNISolone SOD SUC 40 MG/1 ML VIAL IV SCH ×2 (01:42→12:01)
[2019-03-24 06:27] LABS: Basophils % 0.1 % (0.0-0.8); Hematocrit 37.9 VOL% (42.0-52.0); Hemoglobin 11.3 GM/DL (14.0-18.0); Immature Granulocytes % 0.3 %; Immature Granulocytes Absolute 0.03 #; Lymphocytes # 0.7 10*3/uL (1.4-4.0); Lymphocytes % 6.4 % (21.2-54.2); Mean Corpuscular HGB Conc 29.8 GM/DL (32-36); Mean Corpuscular Volume 86.1 FL (87-102); Mean Platelet Volume 9.9 FL (9.6-12.0); Monocytes % 8.3 % (1.7-12.7); Neutrophils % 84.9 % (38.7-73.9); Platelet Count 226 T/CUMM (130-400); Red Cell Distribution Width 16.5 % (9.3-17.3); White Blood Count 11.3 T/CUMM (4-12)
[2019-03-24 07:04] LABS: Albumin 2.5 G/DL (3.4-5.0); Bilirubin,Total 0.5 MG/DL (0.2-1.0); Calcium 7.9 MG/DL (8.5-10.1); Total Protein 5.8 G/DL (6.4-8.3)
[2019-03-24] MEDS ORDERED: POTASSIUM CHLORIDE 20 MEQ TABLET PO ONE (07:35)
[2019-03-24] MEDS: ASPIRIN EC 81 MG TABLET PO SCH (08:52)
[2019-03-24] MEDS: APIXABAN 2.5 MG TABLET PO SCH (08:52)
[2019-03-24] MEDS: DIGOXIN 0.125 MG TABLET PO SCH (08:52)
[2019-03-24] MEDS: BUDESONIDE/FORMOTEROL 160-4.5 INHALER 6 GM INH SCH (08:53)
[2019-03-24] MEDS: PANTOPRAZOLE 40 MG TABLET PO SCH (08:53)
[2019-03-24] MEDS: METOPROLOL SUCCINATE XL 50 MG TABLET PO SCH (08:54)
[2019-03-24] MEDS ORDERED: LEVOFLOXACIN 750 MG TABLET PO SCH (09:00)
[2019-03-24 12:01] VITALS: BP 91/56
== END 2019-03-24 15:23 | DRG 196 ==
LOC: EDBD → EDUNIT# → N.ED 17:48 → N.EDINP 20:07 → SUATTDRO 20:07 → N.CC 20:56 → N.5E 03-22 18:11
PROVIDERS: ADMIT Internal Medicine; ATTEND Family Medicine

== ENCOUNTER 2019-04-24 19:25 | Inpatient (IN) ==
[2019-04-24] MEDS ORDERED: ALBUTEROL/IPRATROPIUM 3 ML NEB RESP TX STA (20:14)
[2019-04-24] MEDS ORDERED: SODIUM PHOSPHATE ENEMA 133 ML BOTTLE RECTAL STA (21:20)
[2019-04-24 21:51] LABS: Basophils # 0.1 10*3/uL (0.0-0.2); Basophils % 0.4 % (0.0-0.8); Eosinophils % 0.1 % (0.00-10.9); Monocytes % 10.5 % (1.7-12.7); Platelet Count 281 T/CUMM (130-400)
[2019-04-24 21:59] LABS: INR 1.2; Partial Thromboplastin Time 32.4 SECS (20.8-36.0)
[2019-04-24 22:11] LABS: Hematocrit 51.8 VOL% (42.0-52.0); Immature Granulocytes % 0.9 %; Immature Granulocytes Absolute 0.16 #; Lymphocytes # 1.3 10*3/uL (1.4-4.0); Lymphocytes % 6.9 % (21.2-54.2); Mean Corpuscular HGB Conc 30.5 GM/DL (32-36); Mean Corpuscular Volume 84.6 FL (87-102); Mean Platelet Volume 8.8 FL (9.6-12.0); Neutrophils % 81.2 % (38.7-73.9); Red Blood Count 6.12 MC/CUMM (3.8-5.5); Red Cell Distribution Width 18.5 % (9.3-17.3); White Blood Count 18.1 T/CUMM (4-12)
[2019-04-24 22:19] LABS: Albumin 3.5 G/DL (3.4-5.0); Bilirubin,Total 0.7 MG/DL (0.2-1.0); Calcium 9.9 MG/DL (8.5-10.1); Osmolality,Calculated 282.1 MOS/KG (273-304); Total Protein 8.6 G/DL (6.4-8.3)
[2019-04-24 22:20] LABS: Hemoglobin 15.8 GM/DL (14.0-18.0)
[2019-04-24] MEDS ORDERED: LACTATED RINGERS 500 ML IV ONE (22:26)
[2019-04-24] MEDS ORDERED: MAGNESIUM CITRATE 300 ML BOTTLE PO STA (22:59)
[2019-04-24] MEDS ORDERED: LEVOFLOXACIN INJ 750 MG in PREMIX 1 EACH IV STA (23:00)
[2019-04-24] MEDS ORDERED: metroNIDAZOLE INJ 500 MG in PREMIX 1 EACH IV STA (23:01)
[2019-04-25] MEDS ORDERED: ACETAMINOPHEN 325 MG TABLET PO PRN (00:07)
[2019-04-25] MEDS ORDERED: MORPHINE 4 MG/1 ML VIAL IV PRN (00:07)
[2019-04-25] MEDS ORDERED: PROMETHAZINE 25 MG/1 ML VIAL IM PRN (00:07)
[2019-04-25] MEDS ORDERED: diphenhydrAMINE CAP 25 MG CAPSULE PO PRN (00:07)
[2019-04-25] MEDS ORDERED: NICOTINE 21 MG/24 HR PATCH TRANSDERM PRN (00:07)
[2019-04-25] MEDS: ALBUTEROL/IPRATROPIUM 3 ML NEB RESP TX SCH ×4 (00:58→13:14)
[2019-04-25 03:03] LABS: ABG Base Excess 1.9 MMOL/L (-2.5-2.5); ABG Oxygen Saturation 93.6 % (95-100); ABG PCO2 40.7 MM HG (35-48); ABG PH 7.421 (7.35-7.45); ABG PO2 73.3 MM HG (80-95); ABG TCO2 22.9 MMOL/L (23-27); Allen Test Positive
[2019-04-25] MEDS ORDERED: SKIN HEALING OINT (AQUAPHOR) 50 GM TUBE TOP PRN (03:35)
[2019-04-25] MEDS: SODIUM CHLORIDE 0.9% 1,000 ML IV SCH ×3 (03:58→22:41)
[2019-04-25] MEDS: LEVOFLOXACIN INJ 750 MG in PREMIX 1 EACH IV SCH (03:58)
[2019-04-25] MEDS: methylPREDNISolone SOD SUC 40 MG/1 ML VIAL IV SCH ×3 (03:59→21:44)
[2019-04-25] MEDS: CYPROHEPTADINE 4 MG TABLET PO SCH ×5 (04:02→21:44)
[2019-04-25] MEDS: APIXABAN 2.5 MG TABLET PO SCH ×3 (04:02→21:44)
[2019-04-25] MEDS: ROSUVASTATIN 20 MG TABLET PO SCH ×2 (04:02→21:44)
[2019-04-25 06:15] LABS: Basophils # 0.1 10*3/uL (0.0-0.2); Basophils % 0.3 % (0.0-0.8); Eosinophils % 0.1 % (0.00-10.9); Hematocrit 48.9 VOL% (42.0-52.0); Hemoglobin 14.7 GM/DL (14.0-18.0); Immature Granulocytes % 0.6 %; Immature Granulocytes Absolute 0.14 #; Lymphocytes # 1.5 10*3/uL (1.4-4.0); Lymphocytes % 6.8 % (21.2-54.2); Mean Corpuscular HGB Conc 30.1 GM/DL (32-36); Mean Corpuscular Volume 86.4 FL (87-102); Mean Platelet Volume 9.8 FL (9.6-12.0); Monocytes % 13.3 % (1.7-12.7); Neutrophils % 78.9 % (38.7-73.9); Platelet Count 308 T/CUMM (130-400); Red Blood Count 5.66 MC/CUMM (3.8-5.5); Red Cell Distribution Width 18.5 % (9.3-17.3); White Blood Count 21.9 T/CUMM (4-12)
[2019-04-25 06:20] LABS: Band Neutrophils 1 % (0-10); Lymphocytes 4 % (20-55); Platelet Estimate Adequate; Segmented Neutrophils 83 % (50-85); Total Cells Counted 100
[2019-04-25] MEDS: BUDESONIDE/FORMOTEROL 160-4.5 INHALER 6 GM INH SCH ×3 (06:22→21:44)
[2019-04-25 07:53] LABS: Albumin 2.8 G/DL (3.4-5.0); Bilirubin,Total 0.5 MG/DL (0.2-1.0)
[2019-04-25] MEDS ORDERED: TIOTROPIUM OLODATEROL INH SCH (09:00)
[2019-04-25] MEDS: ASPIRIN EC 81 MG TABLET PO SCH (09:07)
[2019-04-25] MEDS: PANTOPRAZOLE 40 MG TABLET PO SCH (09:07)
[2019-04-25] MEDS: DIGOXIN 0.125 MG TABLET PO SCH (09:07)
[2019-04-25] MEDS: BISACODYL 5 MG TABLET PO SCH (09:09)
[2019-04-25] MEDS: METOPROLOL SUCCINATE XL 50 MG TABLET PO SCH (09:09)
[2019-04-25] MEDS: FUROSEMIDE 40 MG TABLET PO SCH (09:09)
[2019-04-25] MEDS: metroNIDAZOLE INJ 500 MG in PREMIX 1 EACH IV SCH ×2 (11:32→18:58)
[2019-04-25] MEDS: LACTULOSE 20 GM/30 ML UDCUP PO SCH ×4 (11:32→21:44)
[2019-04-25] MEDS: ONDANSETRON 4 MG/2 ML VIAL IV PRN ×2 (12:49→17:28)
[2019-04-26] MEDS: ALBUTEROL/IPRATROPIUM 3 ML NEB RESP TX SCH ×4 (01:20→19:53)
[2019-04-26] MEDS: CYPROHEPTADINE 4 MG TABLET PO SCH ×6 (01:34→21:37)
[2019-04-26] MEDS: metroNIDAZOLE INJ 500 MG in PREMIX 1 EACH IV SCH ×3 (02:57→18:08)
[2019-04-26] MEDS: LACTULOSE 20 GM/30 ML UDCUP PO SCH ×2 (02:57→06:42)
[2019-04-26] MEDS ORDERED: ALBUTEROL 1.25 MG/3 ML NEB RESP TX PRN (04:27)
[2019-04-26] MEDS ORDERED: FUROSEMIDE 20 MG/2 ML VIAL ONE (05:03)
[2019-04-26] MEDS ORDERED: FUROSEMIDE 20 MG/2 ML VIAL IV ONE (05:06)
[2019-04-26 05:27] LABS: ABG Base Excess -1.1 MMOL/L (-2.5-2.5); ABG HCO3 23.2 MMOL/L (20-26); ABG Oxygen Saturation 82.9 % (95-100); ABG PCO2 68.1 MM HG (35-48); ABG PH 7.229 (7.35-7.45); ABG PO2 56.7 MM HG (80-95); ABG TCO2 25.9 MMOL/L (23-27); Allen Test Positive
[2019-04-26 05:59] LABS: Calcium 7.1 MG/DL (8.5-10.1); Osmolality,Calculated 298.8 MOS/KG (273-304)
[2019-04-26] MEDS: methylPREDNISolone SOD SUC 40 MG/1 ML VIAL IV SCH ×3 (06:22→21:34)
[2019-04-26 06:29] LABS: NRBC # 0.02 10*3/uL; Red Cell Distribution Width 17.5 % (9.3-17.3)
[2019-04-26 06:39] LABS: Allen Test Positive; Pt O2 Delivery Device Other
[2019-04-26 06:40] LABS: ABG Base Excess -0.5 MMOL/L (-2.5-2.5); ABG Oxygen Saturation 98.6 % (95-100); ABG PCO2 66.9 MM HG (35-48); ABG PH 7.242 (7.35-7.45)
[2019-04-26 06:42] LABS: Amorphous Crystals,Urine Few /HPF (Few); Apearance,Urine Slightly Hazy (Clear); Bilirubin,Urine Negative (Negative); Blood, Urine Small mg/dL (Negative); Glucose,Urine (UA) Negative (Negative); Ketones,Urine 5 mg/dL (Negative); Mucus,Urine Occasional /LPF (Occasional); Nitrite,Urine Negative (Negative); Protein,Urine 30 MG/DL; RBC,Urine 8 /HPF (0-4); Squamous Epithelial Cell,Urine Occasional /HPF (0-10); Urine Color Amber (Yellow); Urine Specific Gravity 1.021 (1.001-1.035); WBC,Urine 4 /HPF (0-6)
[2019-04-26 06:51] LABS: Basophils # 0.1 10*3/uL (0.0-0.2); Basophils % 0.3 % (0.0-0.8); Bilirubin,Total 0.4 MG/DL (0.2-1.0); Calcium 8.3 MG/DL (8.5-10.1); Hematocrit 43.5 VOL% (42.0-52.0); Immature Granulocytes % 1.1 %; Immature Granulocytes Absolute 0.27 #; Lymphocytes # 0.8 10*3/uL (1.4-4.0); Lymphocytes % 3.5 % (21.2-54.2); Mean Corpuscular HGB Conc 29.2 GM/DL (32-36); Mean Corpuscular Volume 88.8 FL (87-102); Mean Platelet Volume 9.2 FL (9.6-12.0); Monocytes % 8.2 % (1.7-12.7); Neutrophils % 86.9 % (38.7-73.9); Osmolality,Calculated 294.3 MOS/KG (273-304); Platelet Count 272 T/CUMM (130-400); Total Protein 6.6 G/DL (6.4-8.3); White Blood Count 23.6 T/CUMM (4-12)
[2019-04-26 06:52] LABS: Hemoglobin 12.7 GM/DL (14.0-18.0)
[2019-04-26 06:54] LABS: Band Neutrophils 1 % (0-10); Hypochromasia 1+; Lymphocytes 1 % (20-55); Ovalocytes Slight; Platelet Estimate Adequate; Segmented Neutrophils 95 % (50-85); Total Cells Counted 100
[2019-04-26 06:55] LABS: Burr Cells Slight
[2019-04-26] MEDS: DIGOXIN 0.125 MG TABLET PO SCH (07:59)
[2019-04-26] MEDS: APIXABAN 2.5 MG TABLET PO SCH ×2 (07:59→21:34)
[2019-04-26] MEDS: PANTOPRAZOLE 40 MG TABLET PO SCH (07:59)
[2019-04-26] MEDS: BISACODYL 5 MG TABLET PO SCH (07:59)
[2019-04-26] MEDS: FUROSEMIDE 40 MG TABLET PO SCH (07:59)
[2019-04-26] MEDS: ASPIRIN EC 81 MG TABLET PO SCH (07:59)
[2019-04-26] MEDS: METOPROLOL SUCCINATE XL 50 MG TABLET PO SCH (08:00)
[2019-04-26] MEDS: BUDESONIDE/FORMOTEROL 160-4.5 INHALER 6 GM INH SCH ×2 (10:20→22:16)
[2019-04-26] MEDS ORDERED: SODIUM CHLORIDE 0.9% 1,000 ML IV ONE (10:26)
[2019-04-26] MEDS ORDERED: FUROSEMIDE 40 MG/4 ML VIAL IV ONE (10:28)
[2019-04-26] MEDS ORDERED: MINERAL OIL ENEMA 133 ML BOTTLE RECTAL ONE (10:29)
[2019-04-26] MEDS: POLYETHYLENE GLYCOL POWDER 17 GM PACK PO SCH ×4 (13:30→21:37)
[2019-04-26] MEDS: SODIUM CHLORIDE 0.9% 1,000 ML IV SCH ×2 (13:30→20:50)
[2019-04-26] MEDS: ROSUVASTATIN 20 MG TABLET PO SCH (21:34)
[2019-04-27] MEDS: ALBUTEROL/IPRATROPIUM 3 ML NEB RESP TX SCH ×4 (01:22→19:59)
[2019-04-27] MEDS: CYPROHEPTADINE 4 MG TABLET PO SCH ×6 (01:54→20:07)
[2019-04-27] MEDS: POLYETHYLENE GLYCOL POWDER 17 GM PACK PO SCH ×6 (01:54→21:15)
[2019-04-27] MEDS: SODIUM CHLORIDE 0.9% 1,000 ML IV SCH ×5 (03:10→21:55)
[2019-04-27] MEDS: metroNIDAZOLE INJ 500 MG in PREMIX 1 EACH IV SCH ×3 (03:11→18:43)
[2019-04-27] MEDS: methylPREDNISolone SOD SUC 40 MG/1 ML VIAL IV SCH ×3 (04:31→20:08)
[2019-04-27 06:20] LABS: Calcium 8.2 MG/DL (8.5-10.1); Osmolality,Calculated 288.4 MOS/KG (273-304)
[2019-04-27 06:29] LABS: Basophils % 0.1 % (0.0-0.8); Hemoglobin 10.4 GM/DL (14.0-18.0); Immature Granulocytes % 0.5 %; Immature Granulocytes Absolute 0.06 #; Lymphocytes # 0.4 10*3/uL (1.4-4.0); Lymphocytes % 3.5 % (21.2-54.2); Mean Corpuscular HGB Conc 28.9 GM/DL (32-36); Mean Corpuscular Volume 88.5 FL (87-102); Mean Platelet Volume 9.6 FL (9.6-12.0); Monocytes % 9.4 % (1.7-12.7); NRBC # 0.03 10*3/uL; Neutrophils % 86.5 % (38.7-73.9); Platelet Count 189 T/CUMM (130-400); Red Blood Count 4.07 MC/CUMM (3.8-5.5); Red Cell Distribution Width 17.4 % (9.3-17.3); White Blood Count 11.7 T/CUMM (4-12)
[2019-04-27 06:37] LABS: Hypochromasia 1+; Lymphocytes 3 % (20-55); Ovalocytes Slight; Platelet Estimate Adequate; Segmented Neutrophils 93 % (50-85); Total Cells Counted 100
[2019-04-27] MEDS: ASPIRIN EC 81 MG TABLET PO SCH (09:16)
[2019-04-27] MEDS: APIXABAN 2.5 MG TABLET PO SCH ×2 (09:16→20:07)
[2019-04-27] MEDS: PANTOPRAZOLE 40 MG TABLET PO SCH (09:16)
[2019-04-27] MEDS: FUROSEMIDE 40 MG TABLET PO SCH (09:16)
[2019-04-27] MEDS: DIGOXIN 0.125 MG TABLET PO SCH (09:16)
[2019-04-27] MEDS: METOPROLOL SUCCINATE XL 50 MG TABLET PO SCH (09:16)
[2019-04-27] MEDS: BISACODYL 5 MG TABLET PO SCH (09:17)
[2019-04-27] MEDS: LEVOFLOXACIN INJ 750 MG in PREMIX 1 EACH IV SCH (09:17)
[2019-04-27] MEDS: BUDESONIDE/FORMOTEROL 160-4.5 INHALER 6 GM INH SCH ×2 (09:17→20:16)
[2019-04-27] MEDS: ROSUVASTATIN 20 MG TABLET PO SCH (20:08)
[2019-04-28] MEDS: ALBUTEROL/IPRATROPIUM 3 ML NEB RESP TX SCH ×4 (01:10→19:00)
[2019-04-28] MEDS: POLYETHYLENE GLYCOL POWDER 17 GM PACK PO SCH ×6 (02:06→23:14)
[2019-04-28] MEDS: CYPROHEPTADINE 4 MG TABLET PO SCH ×6 (02:15→22:19)
[2019-04-28] MEDS: SODIUM CHLORIDE 0.9% 1,000 ML IV SCH ×3 (02:15→19:55)
[2019-04-28] MEDS: metroNIDAZOLE INJ 500 MG in PREMIX 1 EACH IV SCH ×4 (02:18→18:11)
[2019-04-28] MEDS: methylPREDNISolone SOD SUC 40 MG/1 ML VIAL IV SCH ×3 (04:36→20:53)
[2019-04-28 05:02] LABS: Calcium 7.7 MG/DL (8.5-10.1); Osmolality,Calculated 292.7 MOS/KG (273-304)
[2019-04-28 05:22] LABS: Basophils % 0.2 % (0.0-0.8); Hematocrit 32.9 VOL% (42.0-52.0); Immature Granulocytes % 1.1 %; Immature Granulocytes Absolute 0.11 #; Lymphocytes # 0.5 10*3/uL (1.4-4.0); Lymphocytes % 5.3 % (21.2-54.2); Mean Corpuscular HGB Conc 28.9 GM/DL (32-36); Mean Corpuscular Volume 90.1 FL (87-102); Mean Platelet Volume 9.6 FL (9.6-12.0); NRBC # 0.02 10*3/uL; Neutrophils % 84.4 % (38.7-73.9); Platelet Count 178 T/CUMM (130-400); Red Blood Count 3.65 MC/CUMM (3.8-5.5); Red Cell Distribution Width 17.5 % (9.3-17.3); White Blood Count 9.9 T/CUMM (4-12)
[2019-04-28 05:24] LABS: Hemoglobin 9.5 GM/DL (14.0-18.0)
[2019-04-28 05:43] LABS: ABG Base Excess 1.8 MMOL/L (-2.5-2.5); ABG HCO3 27.6 MMOL/L (20-26); ABG Oxygen Saturation 90.5 % (95-100); ABG PCO2 49.1 MM HG (35-48); ABG PH 7.367 (7.35-7.45); ABG PO2 62.2 MM HG (80-95); ABG TCO2 29.1 MMOL/L (23-27); Allen Test Positive; Pt O2 Delivery Device Other
[2019-04-28] MEDS: APIXABAN 2.5 MG TABLET PO SCH ×2 (09:24→20:52)
[2019-04-28] MEDS: METOPROLOL SUCCINATE XL 50 MG TABLET PO SCH (09:25)
[2019-04-28] MEDS: PANTOPRAZOLE 40 MG TABLET PO SCH (09:25)
[2019-04-28] MEDS: DIGOXIN 0.125 MG TABLET PO SCH (09:25)
[2019-04-28] MEDS: ASPIRIN EC 81 MG TABLET PO SCH (09:25)
[2019-04-28] MEDS: FUROSEMIDE 40 MG TABLET PO SCH (09:25)
[2019-04-28] MEDS: BUDESONIDE/FORMOTEROL 160-4.5 INHALER 6 GM INH SCH ×2 (09:30→23:13)
[2019-04-28] MEDS: BISACODYL 5 MG TABLET PO SCH (11:04)
[2019-04-28] MEDS: guaiFENesin/DM ER 600-30 MG TABLET PO PRN (20:51)
[2019-04-28] MEDS: ROSUVASTATIN 20 MG TABLET PO SCH (20:52)
[2019-04-29] MEDS: SODIUM CHLORIDE 0.9% 1,000 ML IV SCH ×5 (02:56→20:50)
[2019-04-29] MEDS: metroNIDAZOLE INJ 500 MG in PREMIX 1 EACH IV SCH ×3 (03:13→20:52)
[2019-04-29] MEDS: CYPROHEPTADINE 4 MG TABLET PO SCH ×6 (03:14→20:53)
[2019-04-29] MEDS: POLYETHYLENE GLYCOL POWDER 17 GM PACK PO SCH ×6 (03:15→22:15)
[2019-04-29] MEDS: methylPREDNISolone SOD SUC 40 MG/1 ML VIAL IV SCH ×3 (05:58→20:53)
[2019-04-29 06:05] LABS: Calcium 7.8 MG/DL (8.5-10.1); Osmolality,Calculated 297.6 MOS/KG (273-304)
[2019-04-29] MEDS: ALBUTEROL/IPRATROPIUM 3 ML NEB RESP TX SCH ×4 (07:10→19:49)
[2019-04-29] MEDS: LEVOFLOXACIN INJ 750 MG in PREMIX 1 EACH IV SCH (10:22)
[2019-04-29] MEDS: DIGOXIN 0.125 MG TABLET PO SCH (10:23)
[2019-04-29] MEDS: BISACODYL 5 MG TABLET PO SCH (10:23)
[2019-04-29] MEDS: ASPIRIN EC 81 MG TABLET PO SCH (10:23)
[2019-04-29] MEDS: FUROSEMIDE 40 MG TABLET PO SCH (10:24)
[2019-04-29] MEDS: APIXABAN 2.5 MG TABLET PO SCH ×2 (10:24→20:53)
[2019-04-29] MEDS: METOPROLOL SUCCINATE XL 50 MG TABLET PO SCH (10:24)
[2019-04-29] MEDS: PANTOPRAZOLE 40 MG TABLET PO SCH (10:27)
[2019-04-29] MEDS: BUDESONIDE/FORMOTEROL 160-4.5 INHALER 6 GM INH SCH ×2 (19:50→20:50)
[2019-04-29] MEDS: guaiFENesin/DM ER 600-30 MG TABLET PO PRN (20:52)
[2019-04-29] MEDS: traZODone 50 MG TABLET PO PRN (20:53)
[2019-04-29] MEDS: ROSUVASTATIN 20 MG TABLET PO SCH (20:53)
[2019-04-30] MEDS: POLYETHYLENE GLYCOL POWDER 17 GM PACK PO SCH ×6 (01:36→22:43)
[2019-04-30] MEDS: ALBUTEROL/IPRATROPIUM 3 ML NEB RESP TX SCH ×4 (01:58→19:15)
[2019-04-30] MEDS: CYPROHEPTADINE 4 MG TABLET PO SCH ×6 (03:03→21:15)
[2019-04-30] MEDS: metroNIDAZOLE INJ 500 MG in PREMIX 1 EACH IV SCH ×3 (03:05→21:14)
[2019-04-30] MEDS: methylPREDNISolone SOD SUC 40 MG/1 ML VIAL IV SCH ×3 (05:43→21:14)
[2019-04-30] MEDS: SODIUM CHLORIDE 0.9% 1,000 ML IV SCH ×2 (05:43→09:38)
[2019-04-30 05:52] LABS: Calcium 7.6 MG/DL (8.5-10.1); Osmolality,Calculated 298.3 MOS/KG (273-304)
[2019-04-30 07:50] LABS: Basophils % 0.3 % (0.0-0.8); Hemoglobin 9.3 GM/DL (14.0-18.0); Immature Granulocytes % 2.3 %; Immature Granulocytes Absolute 0.27 #; Lymphocytes % 8.6 % (21.2-54.2); Mean Corpuscular HGB Conc 29.1 GM/DL (32-36); Mean Corpuscular Volume 88.9 FL (87-102); Mean Platelet Volume 10.2 FL (9.6-12.0); Monocytes % 8.9 % (1.7-12.7); NRBC # 0.07 10*3/uL; Neutrophils % 79.9 % (38.7-73.9); Platelet Count 185 T/CUMM (130-400); Red Cell Distribution Width 17.8 % (9.3-17.3); White Blood Count 11.8 T/CUMM (4-12)
[2019-04-30] MEDS: BUDESONIDE/FORMOTEROL 160-4.5 INHALER 6 GM INH SCH ×2 (09:39→21:16)
[2019-04-30] MEDS: guaiFENesin/DM ER 600-30 MG TABLET PO PRN ×2 (09:39→21:15)
[2019-04-30] MEDS: FUROSEMIDE 40 MG TABLET PO SCH (09:40)
[2019-04-30] MEDS: PANTOPRAZOLE 40 MG TABLET PO SCH (09:40)
[2019-04-30] MEDS: BISACODYL 5 MG TABLET PO SCH (09:40)
[2019-04-30] MEDS: ASPIRIN EC 81 MG TABLET PO SCH (09:40)
[2019-04-30] MEDS: APIXABAN 2.5 MG TABLET PO SCH ×2 (09:40→21:15)
[2019-04-30] MEDS: DIGOXIN 0.125 MG TABLET PO SCH (09:40)
[2019-04-30] MEDS: METOPROLOL SUCCINATE XL 50 MG TABLET PO SCH (09:40)
[2019-04-30 12:55] LABS: Hypochromasia 1+; Ovalocytes Few
[2019-04-30 12:56] LABS: Platelet Estimate Normal
[2019-04-30] MEDS: DEXTROSE 5% 1,000 ML IV SCH (16:58)
[2019-04-30] MEDS: ROSUVASTATIN 20 MG TABLET PO SCH (21:15)
[2019-04-30] MEDS: traZODone 50 MG TABLET PO PRN (21:15)
[2019-05-01] MEDS: ALBUTEROL/IPRATROPIUM 3 ML NEB RESP TX SCH ×4 (00:08→20:00)
[2019-05-01] MEDS: metroNIDAZOLE INJ 500 MG in PREMIX 1 EACH IV SCH ×3 (03:12→21:08)
[2019-05-01] MEDS: CYPROHEPTADINE 4 MG TABLET PO SCH ×6 (03:13→21:10)
[2019-05-01] MEDS: DEXTROSE 5% 1,000 ML IV SCH ×2 (03:22→13:32)
[2019-05-01] MEDS: POLYETHYLENE GLYCOL POWDER 17 GM PACK PO SCH ×5 (03:23→17:11)
[2019-05-01] MEDS: methylPREDNISolone SOD SUC 40 MG/1 ML VIAL IV SCH ×3 (05:40→21:11)
[2019-05-01 06:44] LABS: Basophils % 0.1 % (0.0-0.8); Hematocrit 31.2 VOL% (42.0-52.0); Hemoglobin 9.1 GM/DL (14.0-18.0); Immature Granulocytes % 1.9 %; Immature Granulocytes Absolute 0.21 #; Lymphocytes # 0.9 10*3/uL (1.4-4.0); Lymphocytes % 7.7 % (21.2-54.2); Mean Corpuscular HGB Conc 29.2 GM/DL (32-36); Mean Corpuscular Volume 88.6 FL (87-102); Mean Platelet Volume 10.2 FL (9.6-12.0); Monocytes % 8.7 % (1.7-12.7); NRBC # 0.13 10*3/uL; Neutrophils % 81.6 % (38.7-73.9); Platelet Count 174 T/CUMM (130-400); Red Blood Count 3.52 MC/CUMM (3.8-5.5); Red Cell Distribution Width 17.9 % (9.3-17.3); White Blood Count 11.2 T/CUMM (4-12)
[2019-05-01 06:48] LABS: Calcium 7.7 MG/DL (8.5-10.1); Osmolality,Calculated 293.7 MOS/KG (273-304)
[2019-05-01] MEDS: LEVOFLOXACIN INJ 750 MG in PREMIX 1 EACH IV SCH (09:09)
[2019-05-01] MEDS: ASPIRIN EC 81 MG TABLET PO SCH (09:10)
[2019-05-01] MEDS: DIGOXIN 0.125 MG TABLET PO SCH (09:10)
[2019-05-01] MEDS: FUROSEMIDE 40 MG TABLET PO SCH (09:10)
[2019-05-01] MEDS: METOPROLOL SUCCINATE XL 50 MG TABLET PO SCH (09:10)
[2019-05-01] MEDS: guaiFENesin/DM ER 600-30 MG TABLET PO PRN (09:10)
[2019-05-01] MEDS: APIXABAN 2.5 MG TABLET PO SCH ×2 (09:10→21:10)
[2019-05-01] MEDS: BISACODYL 5 MG TABLET PO SCH (09:11)
[2019-05-01] MEDS: PANTOPRAZOLE 40 MG TABLET PO SCH (09:12)
[2019-05-01] MEDS: BUDESONIDE/FORMOTEROL 160-4.5 INHALER 6 GM INH SCH ×2 (09:14→21:10)
[2019-05-01] MEDS: ROSUVASTATIN 20 MG TABLET PO SCH (21:10)
[2019-05-02] MEDS: POLYETHYLENE GLYCOL POWDER 17 GM PACK PO SCH ×7 (00:27→22:04)
[2019-05-02] MEDS: ALBUTEROL/IPRATROPIUM 3 ML NEB RESP TX SCH ×4 (00:40→19:00)
[2019-05-02] MEDS: CYPROHEPTADINE 4 MG TABLET PO SCH ×7 (01:24→21:36)
[2019-05-02] MEDS: DEXTROSE 5% 1,000 ML IV SCH ×2 (03:20→13:38)
[2019-05-02] MEDS: metroNIDAZOLE INJ 500 MG in PREMIX 1 EACH IV SCH ×3 (04:25→20:01)
[2019-05-02] MEDS: methylPREDNISolone SOD SUC 40 MG/1 ML VIAL IV SCH ×3 (04:26→21:39)
[2019-05-02] MEDS: METOPROLOL SUCCINATE XL 50 MG TABLET PO SCH (09:50)
[2019-05-02] MEDS: FUROSEMIDE 40 MG TABLET PO SCH (09:50)
[2019-05-02] MEDS: BISACODYL 5 MG TABLET PO SCH (09:50)
[2019-05-02] MEDS: PANTOPRAZOLE 40 MG TABLET PO SCH (09:50)
[2019-05-02] MEDS: ASPIRIN EC 81 MG TABLET PO SCH (09:50)
[2019-05-02] MEDS: DIGOXIN 0.125 MG TABLET PO SCH (09:50)
[2019-05-02] MEDS: APIXABAN 2.5 MG TABLET PO SCH ×2 (09:50→21:36)
[2019-05-02] MEDS: BUDESONIDE/FORMOTEROL 160-4.5 INHALER 6 GM INH SCH ×2 (09:53→21:38)
[2019-05-02] MEDS: TAMSULOSIN 0.4 MG CAPSULE PO SCH (13:42)
[2019-05-02] MEDS: ROSUVASTATIN 20 MG TABLET PO SCH (21:36)
[2019-05-03] MEDS: ALBUTEROL/IPRATROPIUM 3 ML NEB RESP TX SCH ×4 (00:20→20:13)
[2019-05-03] MEDS: DEXTROSE 5% 1,000 ML IV SCH ×2 (03:09→13:58)
[2019-05-03] MEDS: CYPROHEPTADINE 4 MG TABLET PO SCH ×6 (03:12→21:30)
[2019-05-03] MEDS: metroNIDAZOLE INJ 500 MG in PREMIX 1 EACH IV SCH (03:12)
[2019-05-03] MEDS: POLYETHYLENE GLYCOL POWDER 17 GM PACK PO SCH ×6 (03:15→21:37)
[2019-05-03] MEDS: methylPREDNISolone SOD SUC 40 MG/1 ML VIAL IV SCH ×3 (04:48→21:34)
[2019-05-03 06:14] LABS: Basophils % 0.1 % (0.0-0.8); Hematocrit 33.4 VOL% (42.0-52.0); Immature Granulocytes % 0.9 %; Immature Granulocytes Absolute 0.15 #; Lymphocytes # 0.6 10*3/uL (1.4-4.0); Lymphocytes % 3.8 % (21.2-54.2); Mean Corpuscular HGB Conc 29.6 GM/DL (32-36); Mean Corpuscular Volume 87.4 FL (87-102); Mean Platelet Volume 9.9 FL (9.6-12.0); Monocytes % 7.2 % (1.7-12.7); NRBC # 0.09 10*3/uL; Osmolality,Calculated 288.1 MOS/KG (273-304); Platelet Count 202 T/CUMM (130-400); Red Blood Count 3.82 MC/CUMM (3.8-5.5)
[2019-05-03 06:15] LABS: Hemoglobin 9.9 GM/DL (14.0-18.0)
[2019-05-03 06:22] LABS: Lymphocytes 3 % (20-55); Segmented Neutrophils 91 % (50-85); Total Cells Counted 100
[2019-05-03 06:23] LABS: Hypochromasia 1+; Ovalocytes Slight; Platelet Estimate Adequate
[2019-05-03] MEDS: ASPIRIN EC 81 MG TABLET PO SCH (09:20)
[2019-05-03] MEDS: METOPROLOL SUCCINATE XL 50 MG TABLET PO SCH (09:21)
[2019-05-03] MEDS: FUROSEMIDE 40 MG TABLET PO SCH (09:21)
[2019-05-03] MEDS: DIGOXIN 0.125 MG TABLET PO SCH (09:21)
[2019-05-03] MEDS: PANTOPRAZOLE 40 MG TABLET PO SCH (09:21)
[2019-05-03] MEDS: APIXABAN 2.5 MG TABLET PO SCH ×2 (09:21→21:30)
[2019-05-03] MEDS: TAMSULOSIN 0.4 MG CAPSULE PO SCH (09:21)
[2019-05-03] MEDS: BUDESONIDE/FORMOTEROL 160-4.5 INHALER 6 GM INH SCH ×2 (09:22→21:37)
[2019-05-03] MEDS: BISACODYL 5 MG TABLET PO SCH (09:22)
[2019-05-03] MEDS: ROSUVASTATIN 20 MG TABLET PO SCH (21:30)
[2019-05-04] MEDS: CYPROHEPTADINE 4 MG TABLET PO SCH ×5 (00:40→17:20)
[2019-05-04] MEDS: DEXTROSE 5% 1,000 ML IV SCH ×2 (00:41→11:06)
[2019-05-04] MEDS: ALBUTEROL/IPRATROPIUM 3 ML NEB RESP TX SCH ×3 (00:53→12:03)
[2019-05-04] MEDS: POLYETHYLENE GLYCOL POWDER 17 GM PACK PO SCH ×5 (03:04→17:20)
[2019-05-04] MEDS: methylPREDNISolone SOD SUC 40 MG/1 ML VIAL IV SCH ×2 (05:17→14:20)
[2019-05-04 06:21] LABS: Calcium 8.2 MG/DL (8.5-10.1); Osmolality,Calculated 287.1 MOS/KG (273-304)
[2019-05-04 06:37] LABS: Basophils % 0.2 % (0.0-0.8); Hematocrit 35.7 VOL% (42.0-52.0); Immature Granulocytes Absolute 0.19 #; Lymphocytes # 0.7 10*3/uL (1.4-4.0); Lymphocytes % 3.6 % (21.2-54.2); Mean Corpuscular HGB Conc 29.7 GM/DL (32-36); Mean Corpuscular Volume 87.9 FL (87-102); Mean Platelet Volume 10.1 FL (9.6-12.0); NRBC # 0.06 10*3/uL; Neutrophils % 88.2 % (38.7-73.9); Platelet Count 211 T/CUMM (130-400); Red Blood Count 4.06 MC/CUMM (3.8-5.5); Red Cell Distribution Width 17.9 % (9.3-17.3); White Blood Count 18.5 T/CUMM (4-12)
[2019-05-04 06:39] LABS: Hemoglobin 10.6 GM/DL (14.0-18.0)
[2019-05-04 06:43] LABS: Hypochromasia 1+; Lymphocytes 3 % (20-55); Ovalocytes Slight; Platelet Estimate Adequate; Segmented Neutrophils 95 % (50-85); Total Cells Counted 100
[2019-05-04] MEDS: DIGOXIN 0.125 MG TABLET PO SCH (08:25)
[2019-05-04] MEDS: APIXABAN 2.5 MG TABLET PO SCH (08:25)
[2019-05-04] MEDS: ASPIRIN EC 81 MG TABLET PO SCH (08:25)
[2019-05-04] MEDS: BISACODYL 5 MG TABLET PO SCH (08:25)
[2019-05-04] MEDS: FUROSEMIDE 40 MG TABLET PO SCH (08:25)
[2019-05-04] MEDS: METOPROLOL SUCCINATE XL 50 MG TABLET PO SCH (08:28)
[2019-05-04] MEDS: PANTOPRAZOLE 40 MG TABLET PO SCH (08:28)
[2019-05-04] MEDS: BUDESONIDE/FORMOTEROL 160-4.5 INHALER 6 GM INH SCH (08:28)
[2019-05-04 16:00] VITALS: BP 113/73
[2019-05-04] MEDS ORDERED: TAMSULOSIN 0.4 MG CAPSULE PO SCH (21:00)
== END 2019-05-04 18:05 | DRG 189 ==
LOC: EDBD → EDUNIT# → N.ED 19:25 → SUATTDRO 04-25 00:08 → N.EDINP 04-25 00:08 → N.2E 04-25 03:21 → N.ICU 04-26 05:13 → N.5E 04-28 19:25
PROVIDERS: ADMIT Internal Medicine; ATTEND Internal Medicine

== ENCOUNTER 2019-06-02 01:14 | Inpatient (IN) ==
[2019-06-02 04:07] LABS: Eosinophils % 0.2 % (0.00-10.9); Immature Granulocytes % 1.7 %; Neutrophils % 80.3 % (38.7-73.9)
[2019-06-02 04:23] LABS: Alanine Aminotransferase 34 U/L (16-61); Albumin 2.2 G/DL (3.4-5.0); Alkaline Phosphatase 66 U/L (45-117); Aspartate Amino Transferase 32 U/L (0-37); Blood Urea Nitrogen 18 MG/DL (7-18); Calcium 7.8 MG/DL (8.5-10.1); Estimated Glom Filtration Rate 84 ML/MIN; Glucose 112 MG/DL (74-106); Osmolality,Calculated 283.3 MOS/KG (273-304); Total Protein 5.6 G/DL (6.4-8.3); Troponin I 0.365 NG/ML (0.00-0.045)
[2019-06-02 04:27] LABS: Basophils # 0.1 10*3/uL (0.0-0.2); Basophils % 0.4 % (0.0-0.8); Hematocrit 38.7 VOL% (42.0-52.0); Immature Granulocytes Absolute 0.27 #; Lymphocytes # 1.2 10*3/uL (1.4-4.0); Lymphocytes % 7.7 % (21.2-54.2); Mean Corpuscular HGB Conc 29.2 GM/DL (32-36); Mean Corpuscular Volume 90.4 FL (87-102); Monocytes % 9.7 % (1.7-12.7); NRBC # 0.03 10*3/uL; Platelet Count 175 T/CUMM (130-400); Red Blood Count 4.28 MC/CUMM (3.8-5.5); Red Cell Distribution Width 17.6 % (9.3-17.3); White Blood Count 15.6 T/CUMM (4-12)
[2019-06-02 04:28] LABS: Hemoglobin 11.3 GM/DL (14.0-18.0)
[2019-06-02 04:49] LABS: ABG Base Excess -2.8 MMOL/L (-2.5-2.5); ABG HCO3 22.1 MMOL/L (20-26); ABG Oxygen Saturation 98.5 % (95-100); ABG PCO2 48.8 MM HG (35-48); ABG TCO2 21.7 MMOL/L (23-27)
[2019-06-02] MEDS: PHENYLEPHRINE INJ 80 MG in SODIUM CHLORIDE 0.9% 242 ML IV PRN ×5 (05:12→21:39)
[2019-06-02] MEDS: MIDAZOLAM 100 MG in SODIUM CHLORIDE 0.9% 80 ML IV PRN (05:13)
[2019-06-02] MEDS: fentaNYL INJ 1,250 MCG in SODIUM CHLORIDE 0.9% 225 ML IV PRN (05:13)
[2019-06-02] MEDS ORDERED: ACETAMINOPHEN 325 MG TABLET PO PRN (05:32)
[2019-06-02] MEDS ORDERED: ALBUTEROL 2.5 MG/3 ML NEB RESP TX PRN (05:32)
[2019-06-02] MEDS ORDERED: ONDANSETRON 4 MG/2 ML VIAL IV PRN (05:32)
[2019-06-02 06:17] LABS: INR 1.1; PT Patient Result 11.6 SECS (9.6-12.2)
[2019-06-02] MEDS: PANTOPRAZOLE 40 MG VIAL IV SCH (06:34)
[2019-06-02] MEDS: PIPERACILLIN/TAZOBACTAM 3,375 MG in SODIUM CHLORIDE 0.9% 100 ML IV SCH ×3 (06:41→23:37)
[2019-06-02] MEDS ORDERED: NOREPINEPHRINE 16 MG in SODIUM CHLORIDE 0.9% 234 ML IV PRN (07:16)
[2019-06-02] MEDS: ALBUTEROL/IPRATROPIUM 3 ML NEB RESP TX SCH ×3 (07:41→19:48)
[2019-06-02] MEDS ORDERED: DOPamine 800 MG/250 ML PREMIX IV PRN (07:58)
[2019-06-02 08:44] LABS: ABG Base Excess -3.9 MMOL/L (-2.5-2.5); ABG HCO3 21.1 MMOL/L (20-26); ABG Oxygen Saturation 96.7 % (95-100); ABG PCO2 59.3 MM HG (35-48); ABG PH 7.229 (7.35-7.45); ABG TCO2 22.6 MMOL/L (23-27)
[2019-06-02] MEDS ORDERED: INFLUENZA VIRUS VACCINE 0.5 ML SYRINGE IM ONE (09:00)
[2019-06-02] MEDS ORDERED: NOREPINEPHRINE 4 MG/4 ML VIAL IV ONE (10:19)
[2019-06-02] MEDS ORDERED: DIGOXIN 0.125 MG TABLET PO SCH (12:30)
[2019-06-02] MEDS ORDERED: ASPIRIN EC 81 MG TABLET PO SCH (12:30)
[2019-06-02 13:11] LABS: ABG Base Excess -3.9 MMOL/L (-2.5-2.5); ABG HCO3 25.2 MMOL/L (20-26); ABG Oxygen Saturation 98.5 % (95-100); ABG PCO2 66.8 MM HG (35-48); ABG PO2 156.3 MM HG (80-95); ABG TCO2 27.3 MMOL/L (23-27)
[2019-06-02 13:17] LABS: ABG PH 7.195 (7.35-7.45)
[2019-06-02 14:11] LABS: Apearance,Urine CLOUDY (Clear); Bilirubin,Urine Negative (Negative); Blood, Urine Moderate mg/dL (Negative); Glucose,Urine (UA) Negative (Negative); Hyaline Casts,Urine 9 /LPF (0-3); Ketones,Urine Negative (Negative); Mucus,Urine Occasional /LPF (Occasional); Nitrite,Urine Negative (Negative); Protein,Urine 30 MG/DL; RBC,Urine 17 /HPF (0-4); Urine Color Yellow (Yellow); Urine Specific Gravity 1.017 (1.001-1.035); Urine Urobilinogen < 2.0 EU/DL (0.2-1.0); WBC,Urine 31 /HPF (0-6)
[2019-06-02] MEDS: DIGOXIN 0.125 MG TABLET NG SCH (14:45)
[2019-06-02] MEDS: methylPREDNISolone SOD SUC 40 MG/1 ML VIAL IV SCH ×2 (14:45→23:08)
[2019-06-02] MEDS: ASPIRIN EC 81 MG TABLET PO SCH (14:45)
[2019-06-02 15:40] LABS: ABG Base Excess -5.3 MMOL/L (-2.5-2.5); ABG HCO3 20.1 MMOL/L (20-26); ABG Oxygen Saturation 95.9 % (95-100); ABG PCO2 67.3 MM HG (35-48); ABG PO2 98.6 MM HG (80-95); ABG TCO2 22.9 MMOL/L (23-27)
[2019-06-02 15:42] LABS: ABG PH 7.176 (7.35-7.45)
[2019-06-02] MEDS ORDERED: LACTATED RINGERS 2,000 ML IV ONE (16:18)
[2019-06-02 17:09] LABS: ABG Base Excess -5.1 MMOL/L (-2.5-2.5); ABG HCO3 23.1 MMOL/L (20-26); ABG Oxygen Saturation 96.9 % (95-100); ABG PCO2 59.2 MM HG (35-48); ABG TCO2 24.9 MMOL/L (23-27)
[2019-06-02 17:12] LABS: ABG PH 7.209 (7.35-7.45)
[2019-06-02] MEDS ORDERED: DEXTROSE 10% 250 ML BAG IV PRN (18:20)
[2019-06-02] MEDS: ENOXAPARIN 80 MG/0.8 ML SYRINGE SUBCUT SCH (23:08)
[2019-06-02] MEDS: ROSUVASTATIN 20 MG TABLET NG SCH (23:08)
[2019-06-03] MEDS: fentaNYL INJ 1,250 MCG in SODIUM CHLORIDE 0.9% 225 ML IV PRN ×2 (00:08→18:06)
[2019-06-03] MEDS: ALBUTEROL/IPRATROPIUM 3 ML NEB RESP TX SCH ×4 (00:19→19:25)
[2019-06-03] MEDS: PHENYLEPHRINE INJ 80 MG in SODIUM CHLORIDE 0.9% 242 ML IV PRN ×4 (01:22→15:00)
[2019-06-03] MEDS: TAMSULOSIN 0.4 MG CAPSULE PO SCH ×2 (01:29→21:14)
[2019-06-03 05:05] LABS: ABG HCO3 19.6 MMOL/L (20-26); ABG Oxygen Saturation 99.2 % (95-100); ABG PCO2 54.1 MM HG (35-48); ABG PH 7.231 (7.35-7.45); ABG TCO2 19.9 MMOL/L (23-27)
[2019-06-03 05:34] LABS: Calcium 9.2 MG/DL (8.5-10.1); Osmolality,Calculated 294.4 MOS/KG (273-304)
[2019-06-03 05:37] LABS: Basophils % 0.2 % (0.0-0.8); Hematocrit 37.6 VOL% (42.0-52.0); Hemoglobin 10.7 GM/DL (14.0-18.0); Immature Granulocytes % 1.1 %; Immature Granulocytes Absolute 0.17 #; Lymphocytes # 0.5 10*3/uL (1.4-4.0); Lymphocytes % 3.1 % (21.2-54.2); Mean Corpuscular HGB Conc 28.5 GM/DL (32-36); Mean Corpuscular Volume 91.7 FL (87-102); Monocytes % 3.2 % (1.7-12.7); Neutrophils % 92.4 % (38.7-73.9); Platelet Count 177 T/CUMM (130-400); Red Cell Distribution Width 17.1 % (9.3-17.3); White Blood Count 15.2 T/CUMM (4-12)
[2019-06-03] MEDS: PIPERACILLIN/TAZOBACTAM 3,375 MG in SODIUM CHLORIDE 0.9% 100 ML IV SCH ×3 (05:41→21:15)
[2019-06-03] MEDS: PANTOPRAZOLE 40 MG VIAL IV SCH (05:41)
[2019-06-03] MEDS: methylPREDNISolone SOD SUC 40 MG/1 ML VIAL IV SCH ×3 (05:42→21:30)
[2019-06-03 06:05] LABS: Band Neutrophils 1 % (0-10); Eosinophils 1 % (0-10); Lymphocytes 3 % (20-55); Platelet Estimate Normal; Segmented Neutrophils 93 % (50-85); Total Cells Counted 100
[2019-06-03] MEDS ORDERED: LACTATED RINGERS 1,000 ML IV ONE ×2 (10:30)
[2019-06-03] MEDS: ASPIRIN EC 81 MG TABLET PO SCH (10:49)
[2019-06-03] MEDS: DIGOXIN 0.125 MG TABLET NG SCH (10:49)
[2019-06-03] MEDS: ENOXAPARIN 80 MG/0.8 ML SYRINGE SUBCUT SCH ×2 (10:49→21:13)
[2019-06-03] MEDS: SODIUM CHLORIDE 0.9% 1,000 ML IV SCH ×3 (12:40→23:20)
[2019-06-03] MEDS ORDERED: LORazepam 2 MG/1 ML VIAL ONE (14:31)
[2019-06-03] MEDS ORDERED: LORazepam 2 MG/1 ML VIAL IV ONE (14:33)
[2019-06-03] MEDS: ROSUVASTATIN 20 MG TABLET NG SCH (21:13)
[2019-06-04] MEDS: ALBUTEROL/IPRATROPIUM 3 ML NEB RESP TX SCH ×4 (01:28→20:39)
[2019-06-04 03:17] LABS: Basophils % 0.1 % (0.0-0.8); Eosinophils % 0.1 % (0.00-10.9); Hematocrit 30.5 VOL% (42.0-52.0); Immature Granulocytes % 2.3 %; Immature Granulocytes Absolute 0.33 #; Lymphocytes # 0.8 10*3/uL (1.4-4.0); Lymphocytes % 5.1 % (21.2-54.2); Mean Corpuscular HGB Conc 29.5 GM/DL (32-36); Mean Corpuscular Volume 88.2 FL (87-102); Mean Platelet Volume 9.8 FL (9.6-12.0); Monocytes % 4.7 % (1.7-12.7); NRBC # 0.05 10*3/uL; Neutrophils % 87.7 % (38.7-73.9); Platelet Count 172 T/CUMM (130-400); Red Blood Count 3.46 MC/CUMM (3.8-5.5); Red Cell Distribution Width 17.2 % (9.3-17.3); White Blood Count 14.6 T/CUMM (4-12)
[2019-06-04 03:38] LABS: Calcium 8.7 MG/DL (8.5-10.1)
[2019-06-04] MEDS: PHENYLEPHRINE INJ 80 MG in SODIUM CHLORIDE 0.9% 242 ML IV PRN (04:26)
[2019-06-04 04:29] LABS: ABG Base Excess -1.8 MMOL/L (-2.5-2.5); ABG HCO3 22.9 MMOL/L (20-26); ABG Oxygen Saturation 99.5 % (95-100); ABG PCO2 48.4 MM HG (35-48); ABG PH 7.314 (7.35-7.45); ABG TCO2 22.8 MMOL/L (23-27)
[2019-06-04 05:02] LABS: Anisocytosis 1+; Eosinophils 2 % (0-10); Lymphocytes 4 % (20-55); Platelet Estimate Adequate; Segmented Neutrophils 88 % (50-85); Total Cells Counted 100
[2019-06-04] MEDS: methylPREDNISolone SOD SUC 40 MG/1 ML VIAL IV SCH ×3 (06:38→21:30)
[2019-06-04] MEDS: PIPERACILLIN/TAZOBACTAM 3,375 MG in SODIUM CHLORIDE 0.9% 100 ML IV SCH ×3 (06:38→21:24)
[2019-06-04] MEDS: SODIUM CHLORIDE 0.9% 1,000 ML IV SCH (06:39)
[2019-06-04] MEDS: PANTOPRAZOLE 40 MG VIAL IV SCH (06:39)
[2019-06-04] MEDS: ASPIRIN EC 81 MG TABLET PO SCH (09:22)
[2019-06-04] MEDS: DIGOXIN 0.125 MG TABLET NG SCH (09:25)
[2019-06-04] MEDS: ENOXAPARIN 80 MG/0.8 ML SYRINGE SUBCUT SCH ×2 (09:25→21:24)
[2019-06-04] MEDS: ASPIRIN CHEW 81 MG TABLET PO SCH (09:43)
[2019-06-04] MEDS: DEXTROSE 5% NACL 0.45% 1,000 ML IV SCH ×3 (09:45→21:40)
[2019-06-04] MEDS: fentaNYL INJ 1,250 MCG in SODIUM CHLORIDE 0.9% 225 ML IV PRN ×2 (13:36→23:21)
[2019-06-04] MEDS: ROSUVASTATIN 20 MG TABLET NG SCH (21:24)
[2019-06-04] MEDS: TAMSULOSIN 0.4 MG CAPSULE PO SCH (21:25)
[2019-06-05] MEDS: ALBUTEROL/IPRATROPIUM 3 ML NEB RESP TX SCH ×4 (01:58→20:15)
[2019-06-05 04:34] LABS: Hematocrit 26.9 VOL% (42.0-52.0); Hemoglobin 7.9 GM/DL (14.0-18.0); Immature Granulocytes Absolute 0.16 #; Lymphocytes # 0.4 10*3/uL (1.4-4.0); Lymphocytes % 5.2 % (21.2-54.2); Mean Corpuscular HGB Conc 29.4 GM/DL (32-36); Mean Corpuscular Volume 89.1 FL (87-102); Mean Platelet Volume 9.5 FL (9.6-12.0); Monocytes % 3.9 % (1.7-12.7); NRBC # 0.06 10*3/uL; Neutrophils % 88.9 % (38.7-73.9); Platelet Count 129 T/CUMM (130-400); Red Blood Count 3.02 MC/CUMM (3.8-5.5); White Blood Count 7.9 T/CUMM (4-12)
[2019-06-05 04:55] LABS: ABG Base Excess -2.3 MMOL/L (-2.5-2.5); ABG HCO3 22.4 MMOL/L (20-26); ABG Oxygen Saturation 95.2 % (95-100); ABG PCO2 47.8 MM HG (35-48); ABG PH 7.309 (7.35-7.45); ABG PO2 80.3 MM HG (80-95); ABG TCO2 22.5 MMOL/L (23-27)
[2019-06-05 04:56] LABS: Hypochromasia 1+
[2019-06-05 04:57] LABS: Ovalocytes Slight; Platelet Estimate Adequate
[2019-06-05 05:13] LABS: Calcium 8.2 MG/DL (8.5-10.1); Osmolality,Calculated 296.4 MOS/KG (273-304)
[2019-06-05] MEDS: fentaNYL INJ 1,250 MCG in SODIUM CHLORIDE 0.9% 225 ML IV PRN ×4 (05:25→22:59)
[2019-06-05] MEDS: DEXTROSE 5% NACL 0.45% 1,000 ML IV SCH ×2 (05:37→16:15)
[2019-06-05] MEDS: PIPERACILLIN/TAZOBACTAM 3,375 MG in SODIUM CHLORIDE 0.9% 100 ML IV SCH ×3 (06:09→21:33)
[2019-06-05] MEDS: PANTOPRAZOLE 40 MG VIAL IV SCH (06:10)
[2019-06-05] MEDS: methylPREDNISolone SOD SUC 40 MG/1 ML VIAL IV SCH ×3 (06:10→21:32)
[2019-06-05] MEDS: ASPIRIN CHEW 81 MG TABLET PO SCH (08:34)
[2019-06-05] MEDS: DIGOXIN 0.125 MG TABLET NG SCH (08:34)
[2019-06-05] MEDS: ENOXAPARIN 80 MG/0.8 ML SYRINGE SUBCUT SCH ×2 (08:35→21:33)
[2019-06-05 13:52] LABS: Hematocrit 27.6 VOL% (42.0-52.0); Hemoglobin 7.9 GM/DL (14.0-18.0)
[2019-06-05] MEDS ORDERED: GLUCAGON 1 MG VIAL IM PRN (14:37)
[2019-06-05] MEDS ORDERED: DEXTROSE 10% 250 ML BAG IV PRN (14:37)
[2019-06-05] MEDS: INSULIN LISPRO 100 UNIT/ML SUBCUT SCH (18:45)
[2019-06-05] MEDS: MIDAZOLAM 100 MG in SODIUM CHLORIDE 0.9% 80 ML IV PRN (20:14)
[2019-06-05] MEDS: TAMSULOSIN 0.4 MG CAPSULE PO SCH (20:23)
[2019-06-05] MEDS: ATORVASTATIN 40 MG TABLET PO SCH (21:33)
[2019-06-06] MEDS: ALBUTEROL/IPRATROPIUM 3 ML NEB RESP TX SCH ×4 (00:18→20:18)
[2019-06-06] MEDS: INSULIN LISPRO 100 UNIT/ML SUBCUT SCH ×4 (00:22→18:08)
[2019-06-06 03:49] LABS: Basophils % 0.3 % (0.0-0.8); Hemoglobin 8.2 GM/DL (14.0-18.0); Immature Granulocytes % 4.3 %; Immature Granulocytes Absolute 0.31 #; Lymphocytes # 0.5 10*3/uL (1.4-4.0); Lymphocytes % 6.8 % (21.2-54.2); Mean Corpuscular HGB Conc 29.3 GM/DL (32-36); Mean Corpuscular Volume 89.2 FL (87-102); Monocytes % 4.2 % (1.7-12.7); NRBC # 0.05 10*3/uL; Neutrophils % 84.4 % (38.7-73.9); Platelet Count 128 T/CUMM (130-400); Red Blood Count 3.14 MC/CUMM (3.8-5.5); Red Cell Distribution Width 17.8 % (9.3-17.3); White Blood Count 7.2 T/CUMM (4-12)
[2019-06-06] MEDS: DEXTROSE 5% NACL 0.45% 1,000 ML IV SCH ×2 (03:52→16:05)
[2019-06-06 03:54] LABS: ABG Base Excess -2.4 MMOL/L (-2.5-2.5); ABG HCO3 22.4 MMOL/L (20-26); ABG Oxygen Saturation 98.4 % (95-100); ABG PH 7.286 (7.35-7.45); ABG TCO2 22.7 MMOL/L (23-27)
[2019-06-06 04:05] LABS: Osmolality,Calculated 291.7 MOS/KG (273-304)
[2019-06-06] MEDS: fentaNYL INJ 1,250 MCG in SODIUM CHLORIDE 0.9% 225 ML IV PRN ×2 (04:30→10:00)
[2019-06-06 04:51] LABS: Prealbumin 11.6 MG/DL (20-40)
[2019-06-06] MEDS: PANTOPRAZOLE 40 MG VIAL IV SCH (06:47)
[2019-06-06] MEDS: methylPREDNISolone SOD SUC 40 MG/1 ML VIAL IV SCH ×3 (06:48→21:55)
[2019-06-06] MEDS: PIPERACILLIN/TAZOBACTAM 3,375 MG in SODIUM CHLORIDE 0.9% 100 ML IV SCH ×3 (06:48→21:55)
[2019-06-06] MEDS: DIGOXIN 0.125 MG TABLET NG SCH (08:48)
[2019-06-06] MEDS: ENOXAPARIN 80 MG/0.8 ML SYRINGE SUBCUT SCH ×2 (08:49→21:56)
[2019-06-06] MEDS: hydrALAZINE 20 MG/1 ML VIAL IV PRN ×2 (08:49→16:07)
[2019-06-06] MEDS: amLODIPine 5 MG TABLET PO SCH (08:55)
[2019-06-06] MEDS: ASPIRIN CHEW 81 MG TABLET PO SCH (09:25)
[2019-06-06] MEDS: LISINOPRIL/HCTZ 10-12.5 MG TABLET PO SCH (19:18)
[2019-06-06] MEDS: ATORVASTATIN 40 MG TABLET PO SCH (21:55)
[2019-06-06] MEDS: TAMSULOSIN 0.4 MG CAPSULE PO SCH (21:56)
[2019-06-07] MEDS: ALBUTEROL/IPRATROPIUM 3 ML NEB RESP TX SCH ×4 (01:00→20:05)
[2019-06-07] MEDS: INSULIN LISPRO 100 UNIT/ML SUBCUT SCH ×4 (01:23→17:43)
[2019-06-07] MEDS: DEXTROSE 5% NACL 0.45% 1,000 ML IV SCH ×3 (02:52→20:17)
[2019-06-07] MEDS: fentaNYL INJ 1,250 MCG in SODIUM CHLORIDE 0.9% 225 ML IV PRN ×4 (03:30→21:52)
[2019-06-07 05:29] LABS: ABG Base Excess 1.5 MMOL/L (-2.5-2.5); ABG HCO3 25.8 MMOL/L (20-26); ABG Oxygen Saturation 99.5 % (95-100); ABG PCO2 40.5 MM HG (35-48); ABG PH 7.417 (7.35-7.45)
[2019-06-07 05:33] LABS: Basophils % 0.1 % (0.0-0.8); Hematocrit 27.4 VOL% (42.0-52.0); Hemoglobin 8.2 GM/DL (14.0-18.0); Immature Granulocytes % 5.4 %; Immature Granulocytes Absolute 0.51 #; Lymphocytes # 0.8 10*3/uL (1.4-4.0); Lymphocytes % 8.2 % (21.2-54.2); Mean Corpuscular HGB Conc 29.9 GM/DL (32-36); Mean Corpuscular Volume 88.4 FL (87-102); Mean Platelet Volume 10.1 FL (9.6-12.0); Monocytes % 4.6 % (1.7-12.7); NRBC # 0.06 10*3/uL; Neutrophils % 81.7 % (38.7-73.9); Platelet Count 125 T/CUMM (130-400); White Blood Count 9.5 T/CUMM (4-12)
[2019-06-07 05:43] LABS: Calcium 8.3 MG/DL (8.5-10.1); Osmolality,Calculated 287.8 MOS/KG (273-304)
[2019-06-07 05:53] LABS: Lymphocytes 6 % (20-55); Metamyelocytes 1 %; Myelocytes 1 %; Nucleated Red Blood Cells 1 (0-5); Segmented Neutrophils 87 % (50-85); Total Cells Counted 100
[2019-06-07 05:54] LABS: Hypochromasia 1+; Microcytosis 1+; Ovalocytes Slight; Platelet Estimate Adequate
[2019-06-07] MEDS: PIPERACILLIN/TAZOBACTAM 3,375 MG in SODIUM CHLORIDE 0.9% 100 ML IV SCH ×3 (06:43→21:13)
[2019-06-07] MEDS: methylPREDNISolone SOD SUC 40 MG/1 ML VIAL IV SCH ×3 (06:43→22:05)
[2019-06-07] MEDS: PANTOPRAZOLE 40 MG VIAL IV SCH (06:43)
[2019-06-07] MEDS: amLODIPine 5 MG TABLET PO SCH (08:29)
[2019-06-07] MEDS: LISINOPRIL/HCTZ 10-12.5 MG TABLET PO SCH (08:29)
[2019-06-07] MEDS: ENOXAPARIN 80 MG/0.8 ML SYRINGE SUBCUT SCH ×2 (08:29→20:11)
[2019-06-07] MEDS: ASPIRIN CHEW 81 MG TABLET PO SCH (08:29)
[2019-06-07] MEDS ORDERED: LACTULOSE 20 GM/30 ML UDCUP PO PRN (09:39)
[2019-06-07] MEDS: MIDAZOLAM 100 MG in SODIUM CHLORIDE 0.9% 80 ML IV PRN (15:21)
[2019-06-07] MEDS: TAMSULOSIN 0.4 MG CAPSULE PO SCH (20:10)
[2019-06-07] MEDS: ATORVASTATIN 40 MG TABLET PO SCH (20:10)
[2019-06-08] MEDS: DEXTROSE 5% NACL 0.45% 1,000 ML IV SCH ×3 (00:04→10:04)
[2019-06-08] MEDS: ALBUTEROL/IPRATROPIUM 3 ML NEB RESP TX SCH ×3 (00:20→13:15)
[2019-06-08] MEDS: fentaNYL INJ 1,250 MCG in SODIUM CHLORIDE 0.9% 225 ML IV PRN ×3 (03:02→13:23)
[2019-06-08 04:45] LABS: ABG Base Excess 3.1 MMOL/L (-2.5-2.5); ABG HCO3 27.2 MMOL/L (20-26); ABG Oxygen Saturation 97.9 % (95-100); ABG PCO2 49.6 MM HG (35-48); ABG PH 7.374 (7.35-7.45); ABG TCO2 26.8 MMOL/L (23-27)
[2019-06-08 04:53] LABS: Basophils % 0.3 % (0.0-0.8); Hematocrit 28.6 VOL% (42.0-52.0); Hemoglobin 8.3 GM/DL (14.0-18.0); Immature Granulocytes % 5.9 %; Immature Granulocytes Absolute 0.78 #; Lymphocytes # 0.8 10*3/uL (1.4-4.0); Lymphocytes % 5.8 % (21.2-54.2); Mean Corpuscular Volume 88.3 FL (87-102); Mean Platelet Volume 9.8 FL (9.6-12.0); Monocytes % 4.3 % (1.7-12.7); NRBC # 0.09 10*3/uL; Neutrophils % 83.7 % (38.7-73.9); Platelet Count 137 T/CUMM (130-400); Red Blood Count 3.24 MC/CUMM (3.8-5.5); Red Cell Distribution Width 17.9 % (9.3-17.3); White Blood Count 13.1 T/CUMM (4-12)
[2019-06-08 05:08] LABS: Calcium 8.6 MG/DL (8.5-10.1); Osmolality,Calculated 291.6 MOS/KG (273-304)
[2019-06-08 05:17] LABS: Band Neutrophils 2 % (0-10); Elliptocytes Few; Hypochromasia 1+; Lymphocytes 3 % (20-55); Microcytosis 1+; Polychromasia Slight; Segmented Neutrophils 93 % (50-85); Tear Drop Cells Slight; Total Cells Counted 100
[2019-06-08 05:18] LABS: Platelet Estimate Adequate
[2019-06-08] MEDS: PANTOPRAZOLE 40 MG VIAL IV SCH (05:53)
[2019-06-08] MEDS: methylPREDNISolone SOD SUC 40 MG/1 ML VIAL IV SCH (05:54)
[2019-06-08] MEDS: PIPERACILLIN/TAZOBACTAM 3,375 MG in SODIUM CHLORIDE 0.9% 100 ML IV SCH (05:54)
[2019-06-08] MEDS: INSULIN LISPRO 100 UNIT/ML SUBCUT SCH ×3 (06:04→11:47)
[2019-06-08] MEDS: ASPIRIN CHEW 81 MG TABLET PO SCH (09:24)
[2019-06-08] MEDS: amLODIPine 5 MG TABLET PO SCH (09:24)
[2019-06-08] MEDS: LISINOPRIL/HCTZ 10-12.5 MG TABLET PO SCH (09:24)
[2019-06-08] MEDS: ENOXAPARIN 80 MG/0.8 ML SYRINGE SUBCUT SCH (09:25)
[2019-06-08 12:37] VITALS: BP 127/76
== END 2019-06-08 14:12 | DRG 870 ==
LOC: N.CC 04:50 → SUATTDRO 04:50
PROVIDERS: ADMIT Family Medicine; ATTEND Internal Medicine

== ENCOUNTER 2019-07-23 18:05 | Inpatient (IN) ==
[2019-07-23] MEDS ORDERED: ONDANSETRON 4 MG/2 ML VIAL IV STA (19:14)
[2019-07-23] MEDS ORDERED: PANTOPRAZOLE INJ 80 MG in SODIUM CHLORIDE 0.9% 100 ML IV STA (19:14)
[2019-07-23] MEDS ORDERED: SODIUM CHLORIDE 0.9% 1,000 ML IV STA (19:14)
[2019-07-23 19:28] LABS: INR 1.1; Partial Thromboplastin Time < 21.0 SECS (20.8-36.0)
[2019-07-23 19:33] LABS: Albumin 2.6 G/DL (3.4-5.0); Bilirubin,Total 0.6 MG/DL (0.2-1.0); Calcium 8.3 MG/DL (8.5-10.1); Osmolality,Calculated 282.5 MOS/KG (273-304); Total Protein 6.3 G/DL (6.4-8.3)
[2019-07-23] MEDS ORDERED: OXYMETAZOLINE 0.05% NASAL SPRAY 15 ML BOTTLE ONE (19:33)
[2019-07-23 19:45] LABS: Basophils % 0.3 % (0.0-0.8); Eosinophils % 0.1 % (0.00-10.9); Hematocrit 39.5 VOL% (42.0-52.0); Hemoglobin 11.3 GM/DL (14.0-18.0); Immature Granulocytes % 2.4 %; Immature Granulocytes Absolute 0.36 #; Lymphocytes # 1.2 10*3/uL (1.4-4.0); Lymphocytes % 8.3 % (21.2-54.2); Mean Corpuscular HGB Conc 28.6 GM/DL (32-36); Mean Corpuscular Volume 90.4 FL (87-102); Mean Platelet Volume 9.3 FL (9.6-12.0); Monocytes % 5.8 % (1.7-12.7); NRBC # 0.08 10*3/uL; Neutrophils % 83.1 % (38.7-73.9); Platelet Count 358 T/CUMM (130-400); Red Blood Count 4.37 MC/CUMM (3.8-5.5); Red Cell Distribution Width 18.2 % (9.3-17.3); White Blood Count 14.7 T/CUMM (4-12)
[2019-07-23] MEDS: OXYMETAZOLINE 0.05% NASAL SPRAY 15 ML BOTTLE BOTH NARES PRN ×2 (19:45→21:30)
[2019-07-23 19:50] LABS: Anisocytosis 1+; Elliptocytes Few; Hypochromasia 1+; Platelet Estimate Adequate; Polychromasia Few; Schistocytes Few
[2019-07-23] MEDS ORDERED: PANTOPRAZOLE 40 MG VIAL IV ONE (19:55)
[2019-07-23] MEDS ORDERED: PANTOPRAZOLE INJ 200 MG in SODIUM CHLORIDE 0.9% 250 ML IV SCH (21:00)
[2019-07-23] MEDS ORDERED: ACETAMINOPHEN 325 MG TABLET PO PRN (23:09)
[2019-07-23] MEDS ORDERED: ONDANSETRON 4 MG/2 ML VIAL IV PRN (23:09)
[2019-07-23] MEDS ORDERED: ALBUTEROL 2.5 MG/3 ML NEB RESP TX PRN (23:09)
[2019-07-23] MEDS ORDERED: BISACODYL 10 MG SUPP RECTAL PRN (23:18)
[2019-07-23] MEDS ORDERED: MAGNESIUM HYDROXIDE SUSP 30 ML UDCUP PO PRN (23:18)
[2019-07-23] MEDS ORDERED: LACTULOSE 20 GM/30 ML UDCUP PO ONE (23:24)
[2019-07-24] MEDS ORDERED: SODIUM POLYSTYRENE SULFATE 15 GM/60 ML BOTTLE PO ONE (00:05)
[2019-07-24] MEDS: ALBUTEROL/IPRATROPIUM 3 ML NEB RESP TX SCH ×4 (01:04→21:06)
[2019-07-24] MEDS ORDERED: [UNRECOGNIZED DRUG - OTHER] IV ONE (01:30)
[2019-07-24] MEDS ORDERED: INSULIN REGULAR IV ONE (01:30)
[2019-07-24] MEDS ORDERED: DEXTROSE IV ONE (01:30)
[2019-07-24] MEDS ORDERED: SODIUM BICARB IV ONE (01:30)
[2019-07-24 02:22] LABS: Apearance,Urine CLEAR (Clear); Bilirubin,Urine Negative (Negative); Blood, Urine Negative (Negative); Glucose,Urine (UA) Negative (Negative); Ketones,Urine 5 mg/dL (Negative); Mucus,Urine Occasional /LPF (Occasional); Nitrite,Urine Negative (Negative); Protein,Urine Negative; RBC,Urine 2 /HPF (0-4); Squamous Epithelial Cell,Urine Occasional /HPF (0-10); Urine Color Yellow (Yellow); Urine Specific Gravity 1.055 (1.001-1.035); Urine Urobilinogen < 2.0 EU/DL (0.2-1.0); WBC,Urine 1 /HPF (0-6)
[2019-07-24 07:18] LABS: Basophils # 0.1 10*3/uL (0.0-0.2); Basophils % 0.4 % (0.0-0.8); Eosinophils # 0.2 10*3/uL (0.0-0.87); Eosinophils % 1.4 % (0.00-10.9); Hematocrit 30.3 VOL% (42.0-52.0); Hemoglobin 8.8 GM/DL (14.0-18.0); Immature Granulocytes % 3.1 %; Immature Granulocytes Absolute 0.44 #; Lymphocytes # 2.4 10*3/uL (1.4-4.0); Lymphocytes % 16.7 % (21.2-54.2); Mean Corpuscular Volume 89.1 FL (87-102); Mean Platelet Volume 10.6 FL (9.6-12.0); Monocytes % 9.4 % (1.7-12.7); NRBC # 0.12 10*3/uL; Platelet Count 280 T/CUMM (130-400); Red Cell Distribution Width 18.2 % (9.3-17.3); White Blood Count 14.1 T/CUMM (4-12)
[2019-07-24 07:21] LABS: Albumin 2.3 G/DL (3.4-5.0); Bilirubin,Total 0.7 MG/DL (0.2-1.0); Hypochromasia 1+; Osmolality,Calculated 295.8 MOS/KG (273-304); Ovalocytes Slight; Platelet Estimate Adequate; Total Protein 5.2 G/DL (6.4-8.3)
[2019-07-24] MEDS ORDERED: FAMOTIDINE 20 MG TABLET PO SCH (09:00)
[2019-07-24] MEDS: DOCUSATE SODIUM 100 MG CAPSULE PO SCH ×2 (09:46→22:05)
[2019-07-24] MEDS: CEFDINIR 300 MG CAPSULE PO SCH ×2 (09:47→22:05)
[2019-07-24] MEDS: azaTHIOprine 50 MG TABLET PO SCH (09:47)
[2019-07-24] MEDS: predniSONE 20 MG TABLET PO SCH (09:47)
[2019-07-24] MEDS: POLYETHYLENE GLYCOL POWDER 255 GM BOTTLE PO SCH (09:52)
[2019-07-24] MEDS ORDERED: ALUMINUM/MAGNES/SIMETH MAX STR 30 ML UDCUP PO PRN (10:54)
[2019-07-24] MEDS ORDERED: SODIUM CHLORIDE 0.9% 1,000 ML IV PRN ×2 (14:20→22:30)
[2019-07-24 15:28] LABS: Hematocrit 28.9 VOL% (42.0-52.0); Hemoglobin 8.2 GM/DL (14.0-18.0)
[2019-07-24 22:03] LABS: Hematocrit 25.5 VOL% (42.0-52.0); Hemoglobin 7.3 GM/DL (14.0-18.0)
[2019-07-24] MEDS: ATORVASTATIN 40 MG TABLET PO SCH (22:05)
[2019-07-24] MEDS: TAMSULOSIN 0.4 MG CAPSULE PO SCH (22:05)
[2019-07-24] MEDS: PANTOPRAZOLE 40 MG VIAL IV SCH (22:08)
[2019-07-25] MEDS: ALBUTEROL/IPRATROPIUM 3 ML NEB RESP TX SCH ×4 (00:46→20:38)
[2019-07-25 04:49] LABS: Basophils % 0.3 % (0.0-0.8); Eosinophils # 0.1 10*3/uL (0.0-0.87); Eosinophils % 0.9 % (0.00-10.9); Hematocrit 23.7 VOL% (42.0-52.0); Hemoglobin 6.8 GM/DL (14.0-18.0); Immature Granulocytes % 1.8 %; Immature Granulocytes Absolute 0.19 #; Lymphocytes # 1.7 10*3/uL (1.4-4.0); Lymphocytes % 16.1 % (21.2-54.2); Mean Corpuscular HGB Conc 28.7 GM/DL (32-36); Mean Corpuscular Volume 90.1 FL (87-102); Mean Platelet Volume 9.9 FL (9.6-12.0); NRBC # 0.03 10*3/uL; Neutrophils % 74.9 % (38.7-73.9); Platelet Count 228 T/CUMM (130-400); Red Blood Count 2.63 MC/CUMM (3.8-5.5); Red Cell Distribution Width 18.8 % (9.3-17.3); White Blood Count 10.6 T/CUMM (4-12)
[2019-07-25 05:07] LABS: Hypochromasia 1+; Ovalocytes Slight; Platelet Estimate Adequate
[2019-07-25 08:08] LABS: Hematocrit 24.2 VOL% (42.0-52.0); Hemoglobin 7.1 GM/DL (14.0-18.0)
[2019-07-25] MEDS ORDERED: PANTOPRAZOLE 40 MG TABLET PO SCH (09:00)
[2019-07-25] MEDS: CEFDINIR 300 MG CAPSULE PO SCH ×2 (09:51→22:15)
[2019-07-25] MEDS: predniSONE 20 MG TABLET PO SCH (09:51)
[2019-07-25] MEDS: POLYETHYLENE GLYCOL POWDER 255 GM BOTTLE PO SCH (09:51)
[2019-07-25] MEDS: PANTOPRAZOLE 40 MG VIAL IV SCH ×2 (09:51→12:38)
[2019-07-25] MEDS: azaTHIOprine 50 MG TABLET PO SCH (09:51)
[2019-07-25] MEDS: DOCUSATE SODIUM 100 MG CAPSULE PO SCH ×2 (09:51→22:15)
[2019-07-25] MEDS: MEGESTROL 400 MG/10 ML UDCUP PO SCH (14:21)
[2019-07-25 15:32] LABS: Hematocrit 31.5 VOL% (42.0-52.0); Hemoglobin 9.5 GM/DL (14.0-18.0)
[2019-07-25] MEDS: TAMSULOSIN 0.4 MG CAPSULE PO SCH (22:15)
[2019-07-25] MEDS: ATORVASTATIN 40 MG TABLET PO SCH (22:15)
[2019-07-25] MEDS: TEMAZEPAM 15 MG CAPSULE PO PRN (22:17)
[2019-07-25 22:51] LABS: Hematocrit 32.1 VOL% (42.0-52.0); Hemoglobin 9.6 GM/DL (14.0-18.0)
[2019-07-26] MEDS: ALBUTEROL/IPRATROPIUM 3 ML NEB RESP TX SCH ×4 (01:48→21:02)
[2019-07-26 05:19] LABS: Calcium 8.3 MG/DL (8.5-10.1); Osmolality,Calculated 286.8 MOS/KG (273-304)
[2019-07-26 05:24] LABS: Basophils % 0.2 % (0.0-0.8); Eosinophils # 0.1 10*3/uL (0.0-0.87); Eosinophils % 0.7 % (0.00-10.9); Hematocrit 30.6 VOL% (42.0-52.0); Hemoglobin 8.9 GM/DL (14.0-18.0); Immature Granulocytes % 1.8 %; Immature Granulocytes Absolute 0.15 #; Lymphocytes # 1.2 10*3/uL (1.4-4.0); Lymphocytes % 14.5 % (21.2-54.2); Mean Corpuscular HGB Conc 29.1 GM/DL (32-36); Mean Corpuscular Volume 92.7 FL (87-102); Mean Platelet Volume 9.5 FL (9.6-12.0); Monocytes % 6.5 % (1.7-12.7); NRBC # 0.11 10*3/uL; Neutrophils % 76.3 % (38.7-73.9); Red Cell Distribution Width 16.9 % (9.3-17.3); White Blood Count 8.4 T/CUMM (4-12)
[2019-07-26 05:28] LABS: Platelet Count 172 T/CUMM (130-400)
[2019-07-26 07:46] LABS: Hematocrit 32.3 VOL% (42.0-52.0)
[2019-07-26 07:48] LABS: Hemoglobin 9.4 GM/DL (14.0-18.0)
[2019-07-26] MEDS: MEGESTROL 400 MG/10 ML UDCUP PO SCH (10:16)
[2019-07-26] MEDS: predniSONE 20 MG TABLET PO SCH (10:16)
[2019-07-26] MEDS: azaTHIOprine 50 MG TABLET PO SCH (10:16)
[2019-07-26] MEDS: CEFDINIR 300 MG CAPSULE PO SCH ×2 (10:16→21:12)
[2019-07-26] MEDS: PANTOPRAZOLE 40 MG VIAL IV SCH (10:17)
[2019-07-26] MEDS: POLYETHYLENE GLYCOL POWDER 255 GM BOTTLE PO SCH (10:19)
[2019-07-26] MEDS: LACTOBACILLUS ACIDOPHILUS/BULGARICUS CAPLET PO SCH (10:21)
[2019-07-26] MEDS: DOCUSATE SODIUM 100 MG CAPSULE PO SCH ×2 (10:21→21:12)
[2019-07-26 16:03] LABS: Hematocrit 32.7 VOL% (42.0-52.0); Hemoglobin 9.7 GM/DL (14.0-18.0)
[2019-07-26] MEDS: ATORVASTATIN 40 MG TABLET PO SCH (21:12)
[2019-07-26] MEDS: TEMAZEPAM 15 MG CAPSULE PO PRN (21:12)
[2019-07-26] MEDS: TAMSULOSIN 0.4 MG CAPSULE PO SCH (21:12)
[2019-07-26] MEDS: MEGESTROL 400 MG PO SCH (21:12)
[2019-07-27] MEDS: ALBUTEROL/IPRATROPIUM 3 ML NEB RESP TX SCH ×4 (07:29→19:18)
[2019-07-27] MEDS: LACTOBACILLUS ACIDOPHILUS/BULGARICUS CAPLET PO SCH (09:05)
[2019-07-27] MEDS: DOCUSATE SODIUM 100 MG CAPSULE PO SCH ×2 (09:05→20:46)
[2019-07-27] MEDS: azaTHIOprine 50 MG TABLET PO SCH (09:05)
[2019-07-27] MEDS: CEFDINIR 300 MG CAPSULE PO SCH ×2 (09:05→20:46)
[2019-07-27] MEDS: MEGESTROL 400 MG/10 ML UDCUP PO SCH (09:05)
[2019-07-27] MEDS: PANTOPRAZOLE 40 MG VIAL IV SCH (09:05)
[2019-07-27] MEDS: predniSONE 20 MG TABLET PO SCH (09:05)
[2019-07-27] MEDS: POLYETHYLENE GLYCOL POWDER 17 GM PACK PO SCH (14:14)
[2019-07-27] MEDS: MEGESTROL 400 MG PO SCH (14:28)
[2019-07-27] MEDS: POLYETHYLENE GLYCOL POWDER 255 GM BOTTLE PO SCH (14:29)
[2019-07-27] MEDS: ATORVASTATIN 40 MG TABLET PO SCH (20:46)
[2019-07-27] MEDS: TAMSULOSIN 0.4 MG CAPSULE PO SCH (20:46)
[2019-07-27] MEDS: TEMAZEPAM 15 MG CAPSULE PO PRN (23:22)
[2019-07-28] MEDS: ALBUTEROL/IPRATROPIUM 3 ML NEB RESP TX SCH ×4 (00:21→19:20)
[2019-07-28] MEDS: CEFDINIR 300 MG CAPSULE PO SCH ×2 (08:52→21:15)
[2019-07-28] MEDS: azaTHIOprine 50 MG TABLET PO SCH (08:52)
[2019-07-28] MEDS: LACTOBACILLUS ACIDOPHILUS/BULGARICUS CAPLET PO SCH (08:52)
[2019-07-28] MEDS: DOCUSATE SODIUM 100 MG CAPSULE PO SCH ×2 (08:53→21:15)
[2019-07-28] MEDS: predniSONE 20 MG TABLET PO SCH (08:53)
[2019-07-28] MEDS: POLYETHYLENE GLYCOL POWDER 17 GM PACK PO SCH (08:54)
[2019-07-28] MEDS: MEGESTROL 400 MG/10 ML UDCUP PO SCH (08:54)
[2019-07-28] MEDS: PANTOPRAZOLE 40 MG VIAL IV SCH (10:08)
[2019-07-28] MEDS: TAMSULOSIN 0.4 MG CAPSULE PO SCH (21:15)
[2019-07-28] MEDS: ATORVASTATIN 40 MG TABLET PO SCH (21:15)
[2019-07-28] MEDS: TEMAZEPAM 15 MG CAPSULE PO PRN (22:11)
[2019-07-29] MEDS: ALBUTEROL/IPRATROPIUM 3 ML NEB RESP TX SCH ×4 (01:14→19:06)
[2019-07-29] MEDS: CEFDINIR 300 MG CAPSULE PO SCH ×2 (09:58→20:13)
[2019-07-29] MEDS: POLYETHYLENE GLYCOL POWDER 17 GM PACK PO SCH (09:58)
[2019-07-29] MEDS: PANTOPRAZOLE 40 MG VIAL IV SCH (09:58)
[2019-07-29] MEDS: DOCUSATE SODIUM 100 MG CAPSULE PO SCH ×2 (09:59→20:13)
[2019-07-29] MEDS: azaTHIOprine 50 MG TABLET PO SCH (09:59)
[2019-07-29] MEDS: predniSONE 20 MG TABLET PO SCH (09:59)
[2019-07-29] MEDS: LACTOBACILLUS ACIDOPHILUS/BULGARICUS CAPLET PO SCH (10:00)
[2019-07-29] MEDS: MEGESTROL 400 MG/10 ML UDCUP PO SCH (10:00)
[2019-07-29] MEDS: ATORVASTATIN 40 MG TABLET PO SCH (20:13)
[2019-07-29] MEDS: TAMSULOSIN 0.4 MG CAPSULE PO SCH (20:13)
[2019-07-29] MEDS: TEMAZEPAM 15 MG CAPSULE PO PRN (22:28)
[2019-07-30] MEDS: ALBUTEROL/IPRATROPIUM 3 ML NEB RESP TX SCH ×2 (01:34→07:10)
[2019-07-30] MEDS: azaTHIOprine 50 MG TABLET PO SCH (08:32)
[2019-07-30] MEDS: predniSONE 20 MG TABLET PO SCH (08:32)
[2019-07-30] MEDS: CEFDINIR 300 MG CAPSULE PO SCH (08:33)
[2019-07-30] MEDS: MEGESTROL 400 MG/10 ML UDCUP PO SCH (08:33)
[2019-07-30] MEDS: POLYETHYLENE GLYCOL POWDER 17 GM PACK PO SCH (08:33)
[2019-07-30] MEDS: LACTOBACILLUS ACIDOPHILUS/BULGARICUS CAPLET PO SCH (08:33)
[2019-07-30] MEDS: DOCUSATE SODIUM 100 MG CAPSULE PO SCH (08:33)
[2019-07-30] MEDS: PANTOPRAZOLE 40 MG VIAL IV SCH (08:34)
[2019-07-30 08:41] VITALS: BP 135/73
== END 2019-07-30 11:03 | disposition home or self-care (01) | DRG 166 ==
LOC: N.ED 18:05 → N.EDINP 23:09 → SUATTDRO 23:09 → N.CC 23:51 → N.4E 07-26 14:52
PROVIDERS: ADMIT Internal Medicine; ATTEND Hospitalist

== ENCOUNTER 2019-08-12 07:46 | Inpatient (IN) ==
[2019-08-12] MEDS ORDERED: FUROSEMIDE 100 MG/10 ML VIAL IV STA (08:11)
[2019-08-12 08:24] LABS: Basophils % 0.4 % (0.0-0.8); Eosinophils # 0.1 10*3/uL (0.0-0.87); Hematocrit 38.4 VOL% (42.0-52.0); Hemoglobin 10.9 GM/DL (14.0-18.0); Immature Granulocytes % 1.2 %; Immature Granulocytes Absolute 0.12 #; Lymphocytes # 1.2 10*3/uL (1.4-4.0); Lymphocytes % 12.3 % (21.2-54.2); Mean Corpuscular HGB Conc 28.4 GM/DL (32-36); Mean Corpuscular Volume 90.8 FL (87-102); Monocytes % 9.9 % (1.7-12.7); NRBC # 0.05 10*3/uL; Neutrophils % 75.2 % (38.7-73.9); Platelet Count 282 T/CUMM (130-400); Red Blood Count 4.23 MC/CUMM (3.8-5.5); Red Cell Distribution Width 17.5 % (9.3-17.3); White Blood Count 9.8 T/CUMM (4-12)
[2019-08-12 08:50] LABS: Albumin 2.7 G/DL (3.4-5.0); Bilirubin,Total 0.7 MG/DL (0.2-1.0); INR 1.1; Osmolality,Calculated 278.4 MOS/KG (273-304); PT Patient Result 11.7 SECS (9.6-12.2); Partial Thromboplastin Time 22.7 SECS (20.8-36.0); Total Protein 6.4 G/DL (6.4-8.3)
[2019-08-12 08:59] LABS: ABG Base Excess 3.1 MMOL/L (-2.5-2.5); ABG HCO3 27.1 MMOL/L (20-26); ABG Oxygen Saturation 94.4 % (95-100); ABG PCO2 37.4 MM HG (35-48); ABG PH 7.463 (7.35-7.45); ABG PO2 67.1 MM HG (80-95); Allen Test Positive; Pt O2 Delivery Device Venturi Mask
[2019-08-12] MEDS ORDERED: PIPERACILLIN/TAZOBACTAM 3,375 MG in SODIUM CHLORIDE 0.9% 100 ML IV STA (09:08)
[2019-08-12 09:24] LABS: Apearance,Urine CLEAR (Clear); Bilirubin,Urine Negative (Negative); Blood, Urine Negative (Negative); Glucose,Urine (UA) Negative (Negative); Ketones,Urine Negative (Negative); Mucus,Urine Occasional /LPF (Occasional); Nitrite,Urine Negative (Negative); Protein,Urine Negative; Squamous Epithelial Cell,Urine Occasional /HPF (0-10); Urine Color Straw (Yellow); Urine Specific Gravity 1.006 (1.001-1.035); Urine Urobilinogen < 2.0 EU/DL (0.2-1.0)
[2019-08-12] MEDS ORDERED: guaiFENesin/DM ER 600-30 MG TABLET PO PRN (10:48)
[2019-08-12] MEDS ORDERED: ACETAMINOPHEN 325 MG TABLET PO PRN (10:48)
[2019-08-12] MEDS ORDERED: ONDANSETRON 4 MG/2 ML VIAL IV PRN (10:48)
[2019-08-12] MEDS ORDERED: BISACODYL 10 MG SUPP RECTAL PRN (11:08)
[2019-08-12] MEDS ORDERED: OXYMETAZOLINE 0.05% NASAL SPRAY 15 ML BOTTLE BOTH NARES PRN (11:08)
[2019-08-12] MEDS ORDERED: TEMAZEPAM 15 MG CAPSULE PO PRN (11:08)
[2019-08-12] MEDS ORDERED: ALUMINUM/MAGNES/SIMETH MAX STR 30 ML UDCUP PO PRN (11:08)
[2019-08-12] MEDS ORDERED: MAGNESIUM HYDROXIDE SUSP 30 ML UDCUP PO PRN (11:08)
[2019-08-12] MEDS ORDERED: LACTULOSE 20 GM/30 ML UDCUP PO PRN (11:08)
[2019-08-12] MEDS ORDERED: ALBUTEROL 2.5 MG/3 ML NEB RESP TX PRN (11:25)
[2019-08-12] MEDS: ALBUTEROL/IPRATROPIUM 3 ML NEB RESP TX SCH ×2 (13:38→20:13)
[2019-08-12] MEDS: PIPERACILLIN/TAZOBACTAM 3,375 MG in SODIUM CHLORIDE 0.9% 100 ML IV SCH (17:55)
[2019-08-12] MEDS: TAMSULOSIN 0.4 MG CAPSULE PO SCH (20:18)
[2019-08-12] MEDS: MEGESTROL 40 MG TABLET PO SCH (20:18)
[2019-08-12] MEDS: RANITIDINE 150 MG TABLET PO SCH (20:18)
[2019-08-12] MEDS: DOCUSATE SODIUM 100 MG CAPSULE PO SCH (20:18)
[2019-08-12] MEDS: ATORVASTATIN 40 MG TABLET PO SCH (20:18)
[2019-08-13] MEDS: ALBUTEROL/IPRATROPIUM 3 ML NEB RESP TX SCH ×4 (01:23→21:12)
[2019-08-13] MEDS: PIPERACILLIN/TAZOBACTAM 3,375 MG in SODIUM CHLORIDE 0.9% 100 ML IV SCH ×3 (02:50→18:20)
[2019-08-13 04:33] LABS: Basophils # 0.1 10*3/uL (0.0-0.2); Basophils % 0.5 % (0.0-0.8); Eosinophils # 0.4 10*3/uL (0.0-0.87); Eosinophils % 3.8 % (0.00-10.9); Hematocrit 34.9 VOL% (42.0-52.0); Hemoglobin 10.4 GM/DL (14.0-18.0); Immature Granulocytes % 1.4 %; Immature Granulocytes Absolute 0.14 #; Lymphocytes % 9.8 % (21.2-54.2); Mean Corpuscular HGB Conc 29.8 GM/DL (32-36); Mean Corpuscular Volume 87.7 FL (87-102); Mean Platelet Volume 10.3 FL (9.6-12.0); Monocytes % 9.1 % (1.7-12.7); NRBC # 0.04 10*3/uL; Neutrophils % 75.4 % (38.7-73.9); Platelet Count 275 T/CUMM (130-400); Red Blood Count 3.98 MC/CUMM (3.8-5.5); Red Cell Distribution Width 17.6 % (9.3-17.3); White Blood Count 10.2 T/CUMM (4-12)
[2019-08-13] MEDS ORDERED: FUROSEMIDE 40 MG/4 ML VIAL IV SCH (09:00)
[2019-08-13] MEDS ORDERED: predniSONE 20 MG TABLET PO SCH (09:00)
[2019-08-13] MEDS ORDERED: AZITHROMYCIN INJ 500 MG in SODIUM CHLORIDE 0.9% 250 ML IV SCH (10:00)
[2019-08-13] MEDS: azaTHIOprine 50 MG TABLET PO SCH (10:50)
[2019-08-13] MEDS: MEGESTROL 40 MG TABLET PO SCH ×2 (10:50→21:26)
[2019-08-13] MEDS: POLYETHYLENE GLYCOL POWDER 17 GM PACK PO SCH (10:50)
[2019-08-13] MEDS: RANITIDINE 150 MG TABLET PO SCH ×2 (10:50→21:26)
[2019-08-13] MEDS: DOCUSATE SODIUM 100 MG CAPSULE PO SCH ×2 (10:50→21:26)
[2019-08-13] MEDS: methylPREDNISolone SOD SUC 40 MG/1 ML VIAL IV SCH ×2 (10:51→18:19)
[2019-08-13] MEDS ORDERED: ALUMINUM/MAGNES/SIMETH MAX STR 30 ML UDCUP PO PRN (16:02)
[2019-08-13] MEDS: FUROSEMIDE 40 MG/4 ML VIAL IV SCH (16:29)
[2019-08-13] MEDS: SUCRALFATE 1 GM/10 ML UDCUP PO SCH (18:19)
[2019-08-13] MEDS: DORNASE ALFA 2.5 MG/2.5 ML VIAL RESP TX SCH (21:13)
[2019-08-13] MEDS: ATORVASTATIN 40 MG TABLET PO SCH (21:26)
[2019-08-13] MEDS: TAMSULOSIN 0.4 MG CAPSULE PO SCH (21:26)
[2019-08-14] MEDS: ALBUTEROL/IPRATROPIUM 3 ML NEB RESP TX SCH ×4 (00:57→19:10)
[2019-08-14] MEDS: PIPERACILLIN/TAZOBACTAM 3,375 MG in SODIUM CHLORIDE 0.9% 100 ML IV SCH ×2 (01:19→09:07)
[2019-08-14] MEDS: SUCRALFATE 1 GM/10 ML UDCUP PO SCH ×4 (01:19→17:10)
[2019-08-14] MEDS: methylPREDNISolone SOD SUC 40 MG/1 ML VIAL IV SCH ×2 (03:35→09:04)
[2019-08-14 06:04] LABS: Basophils % 0.1 % (0.0-0.8); Hematocrit 34.8 VOL% (42.0-52.0); Hemoglobin 10.2 GM/DL (14.0-18.0); Immature Granulocytes % 1.4 %; Lymphocytes # 0.5 10*3/uL (1.4-4.0); Lymphocytes % 6.8 % (21.2-54.2); Mean Corpuscular HGB Conc 29.3 GM/DL (32-36); Mean Corpuscular Volume 87.9 FL (87-102); Mean Platelet Volume 9.9 FL (9.6-12.0); Monocytes % 3.3 % (1.7-12.7); Neutrophils % 88.4 % (38.7-73.9); Platelet Count 285 T/CUMM (130-400); Red Blood Count 3.96 MC/CUMM (3.8-5.5); Red Cell Distribution Width 17.1 % (9.3-17.3)
[2019-08-14 06:26] LABS: Calcium 8.9 MG/DL (8.5-10.1)
[2019-08-14 06:35] LABS: % Iron Saturation 9.9 % (18-50); Ferritin 86.9 ng/ml (26-388)
[2019-08-14] MEDS: DORNASE ALFA 2.5 MG/2.5 ML VIAL RESP TX SCH ×2 (07:15→19:50)
[2019-08-14] MEDS: MEGESTROL 40 MG TABLET PO SCH (08:54)
[2019-08-14] MEDS: azaTHIOprine 50 MG TABLET PO SCH (08:54)
[2019-08-14] MEDS: RANITIDINE 150 MG TABLET PO SCH ×2 (08:54→22:11)
[2019-08-14] MEDS: FUROSEMIDE 40 MG/4 ML VIAL IV SCH (08:54)
[2019-08-14] MEDS: DOCUSATE SODIUM 100 MG CAPSULE PO SCH ×2 (08:55→22:12)
[2019-08-14] MEDS: POLYETHYLENE GLYCOL POWDER 17 GM PACK PO SCH (08:55)
[2019-08-14] MEDS: BUDESONIDE 0.5 MG/2 ML NEB RESP TX SCH ×2 (10:45→19:10)
[2019-08-14] MEDS: ARFORMOTEROL 15 MCG/2 ML NEB RESP TX SCH ×2 (10:45→19:10)
[2019-08-14] MEDS: LEVOFLOXACIN 750 MG TABLET PO SCH (11:04)
[2019-08-14] MEDS: CLORAZEPATE 3.75 MG TABLET PO SCH ×4 (11:04→22:12)
[2019-08-14] MEDS ORDERED: methylPREDNISolone SOD SUC 40 MG/1 ML VIAL IV SCH (17:00)
[2019-08-14] MEDS: FUROSEMIDE 20 MG TABLET PO SCH (17:09)
[2019-08-14] MEDS ORDERED: SERTRALINE 50 MG TABLET PO SCH (21:00)
[2019-08-14] MEDS ORDERED: MIRTAZAPINE 15 MG TABLET PO SCH (21:00)
[2019-08-14] MEDS: CYPROHEPTADINE 4 MG TABLET PO SCH (22:11)
[2019-08-14] MEDS: TAMSULOSIN 0.4 MG CAPSULE PO SCH (22:12)
[2019-08-14] MEDS: ATORVASTATIN 40 MG TABLET PO SCH (22:12)
[2019-08-15] MEDS: ALBUTEROL/IPRATROPIUM 3 ML NEB RESP TX SCH ×2 (00:20→07:42)
[2019-08-15] MEDS: SUCRALFATE 1 GM/10 ML UDCUP PO SCH ×3 (00:57→11:09)
[2019-08-15 05:50] LABS: Basophils % 0.1 % (0.0-0.8); Hematocrit 32.1 VOL% (42.0-52.0); Hemoglobin 9.5 GM/DL (14.0-18.0); Immature Granulocytes % 1.1 %; Immature Granulocytes Absolute 0.09 #; Lymphocytes # 0.6 10*3/uL (1.4-4.0); Lymphocytes % 6.9 % (21.2-54.2); Mean Corpuscular HGB Conc 29.6 GM/DL (32-36); Mean Platelet Volume 9.1 FL (9.6-12.0); Monocytes % 11.6 % (1.7-12.7); NRBC # 0.02 10*3/uL; Neutrophils % 80.3 % (38.7-73.9); Platelet Count 276 T/CUMM (130-400); Red Blood Count 3.69 MC/CUMM (3.8-5.5); Red Cell Distribution Width 16.7 % (9.3-17.3); White Blood Count 8.3 T/CUMM (4-12)
[2019-08-15] MEDS ORDERED: methylPREDNISolone SOD SUC 40 MG/1 ML VIAL IV SCH (06:00)
[2019-08-15 06:15] LABS: Calcium 8.7 MG/DL (8.5-10.1); Osmolality,Calculated 279.5 MOS/KG (273-304)
[2019-08-15] MEDS: BUDESONIDE 0.5 MG/2 ML NEB RESP TX SCH (07:42)
[2019-08-15] MEDS: ARFORMOTEROL 15 MCG/2 ML NEB RESP TX SCH (07:42)
[2019-08-15] MEDS: DORNASE ALFA 2.5 MG/2.5 ML VIAL RESP TX SCH (07:43)
[2019-08-15] MEDS ORDERED: methylPREDNISolone ACETATE 40 MG/1 ML VIAL IM ONE (08:11)
[2019-08-15] MEDS ORDERED: DEXAMETHASONE 4 MG/1 ML VIAL IM ONE (08:11)
[2019-08-15] MEDS ORDERED: predniSONE 20 MG TABLET PO SCH (09:00)
[2019-08-15] MEDS ORDERED: MULTIVITAMIN (CENTRUM) TABLET PO SCH (09:00)
[2019-08-15] MEDS: FUROSEMIDE 20 MG TABLET PO SCH (09:05)
[2019-08-15] MEDS: CLORAZEPATE 3.75 MG TABLET PO SCH (09:05)
[2019-08-15] MEDS: DOCUSATE SODIUM 100 MG CAPSULE PO SCH (09:05)
[2019-08-15] MEDS: azaTHIOprine 50 MG TABLET PO SCH (09:05)
[2019-08-15] MEDS: CYPROHEPTADINE 4 MG TABLET PO SCH (09:05)
[2019-08-15] MEDS: POLYETHYLENE GLYCOL POWDER 17 GM PACK PO SCH (09:06)
[2019-08-15] MEDS: LEVOFLOXACIN 750 MG TABLET PO SCH (11:08)
[2019-08-15] MEDS: RANITIDINE 150 MG TABLET PO SCH (11:09)
[2019-08-15 12:32] VITALS: BP 117/68
== END 2019-08-15 12:55 | DRG 189 ==
LOC: EDUNIT# → EDBD → N.ED 07:46 → N.EDINP 10:50 → N.3E 12:24
PROVIDERS: ADMIT Hospitalist; ATTEND Hospitalist